=== PATIENT | female | born 1955 | race Caucasian/White ===

== ENCOUNTER 2017-06-27 14:34 | Outpatient (CLI) | payer MEDICARE ==
[2017-06-27 16:38] LABS: #Eosinphils 0.2 thou/uL (0.0-0.7); #Lymphocytes 1.8 thou/uL (1.20-3.40); #Monocytes 0.5 thou/uL (0.11-0.59); #Neutrophils 5.1 thou/uL (1.40-6.50); %Basophils 0.5 % (0.0-1.0); %Eosinophils 2.3 % (0.0-10.0); %Lymphocytes 23.3 % (21.0-51.0); Hemoglobin 12.2 g/dL (12.0-16.0); Mean Corpuscular HGB CONC 32.4 g/dL (32.0-36.0); Mean Corpuscular Hemoglobin 31.1 pg (27.0-31.0); Mean Corpuscular Volume 96.1 fl (81.0-99.0); Mean Platelet Volume 7.8 fL (7.4-10.4); Platelet Count 203 thou/uL (130-400); RBC Distribution Width 11.2 % (11.5-14.5); Red Blood Cell (RBC) Count 3.91 mill/uL (4.20-5.40); White Blood Cell (WBC) Count 7.6 thou/uL (4.8-10.8)
[2017-06-27 16:59] LABS: Anion Gap 13 mmol/L (10-20); BUN (Urea Nitrogen) 21 mg/dL (9.8-20.1); Calc. Creatinine Clearance 0 mL/min (70-130); Calcium 9.1 mg/dL (7.8-10.44); Carbon Dioxide 34 mmol/L (23-31); Chloride 94 mmol/L (98-107); Estimated GFR-MDRD 77; Glucose 71 mg/dL (80-115); Potassium 4.2 mmol/L (3.5-5.1); Sodium 137 mmol/L (136-145)
--- NOTE | 2017-06-28 14:32 | EKG ---
Test Reason : Blood Pressure : / mmHG Vent. Rate : 077 BPM Atrial Rate : 077 BPM P-R Int : 122 ms QRS Dur : 070 ms QT Int : 380 ms P-R-T Axes : 034 073 067 degrees QTc Int : 430 ms Normal sinus rhythm Normal ECG When compared with ECG of 11-NOV-2015 12:18, ST elevation now present in Inferior leads Nonspecific T wave abnormality now evident in Anterior leads Confirmed by DR. Sinan NUNO ([id number]) on 06/28/2017 2:32:08 PM Referred By: JOAN Confirmed By:DR. Sinan NUNO
== END 2017-06-27 14:35 | disposition home or self-care (01) ==
LOC: LABBT 14:34
PROVIDERS: ATTEND Orthopaedic Surgery Hand Surgery
DX: Z01.812 Encounter for preprocedural laboratory examination (principal); G57.01 Lesion of sciatic nerve, right lower limb
CPT/HCPCS: 80048; 85025; 86850; 86900; 86901; 93005; 93010

== ENCOUNTER 2017-06-28 05:54 | Day surgery (SDC) | payer MEDICARE ==
[2017-06-27 14:58] VITALS: BMI 38.4
[2017-06-28] MEDS ORDERED: Sodium Chloride 0.9% 10 ML ONE (06:38)
[2017-06-28] MEDS ORDERED: Bupivacaine PF 0.5% 30 ML VIAL ONE (06:38)
[2017-06-28] MEDS ORDERED: Bacitracin Zinc Ointment 30 gm TUBE ONE (06:38)
[2017-06-28] MEDS ORDERED: Betamet Acet/Betamet Na Ph 30 MG/5 ML VIAL ONE (06:38)
[2017-06-28] MEDS ORDERED: HYDROmorphone 0.5 MG/0.5 ML SYRINGE ONE (07:25)
[2017-06-28] MEDS ORDERED: Fentanyl 100 MCG/2 ML VIAL ONE (07:25)
[2017-06-28] MEDS ORDERED: Metoclopramide HCl 10 MG/2 ML VIAL ONE (07:26)
[2017-06-28] MEDS ORDERED: Ondansetron HCl/PF 4 MG/2 ML Vial ONE (07:26)
[2017-06-28] MEDS ORDERED: CEFAZOLIN/Water 2 GM/20 ML SYRINGE ONE (08:39)
--- NOTE | 2017-06-28 12:05 | OP ---
DATE OF PROCEDURE: 06/28/2017 PREOPERATIVE DIAGNOSES: Right proximal deep peroneal nerve and right distal leg superficial peroneal nerve compression. FINDINGS: 1. Very tight compression both sides of the fibular head and at the primary inner crural fascial ban ds x2 at the peroneal nerve, at the fibular head. 2. Very tight superficial fascia with a fascial hernia causing compression to the point where the ne rve was flattened over 50%. PROCEDURE: 1. Deep peroneal nerve neuroplasty at the fibula/knee level. 2. Superficial peroneal nerve neuroplasty at the distal third leg level. ESTIMATED BLOOD LOSS: Estimated blood loss less than 10 mL. TOURNIQUET TIME: 31 minutes. SURGEON: Tito Oshea M.D. ANESTHESIA: General LMA technique. Irma HILL and Dr. Chahal HISTORY: The patient had a documented clinical, physical examination and EMG for the pathology liste d above, not responding to conservative treatment. DESCRIPTION OF PROCEDURE: After successful general LMA technique, the limb was prepped and draped. Timeout was done appropriately and the surgical markings matched the knee and leg site which was on t he consent as well and the patient and were informed of the sites. The patient then had the tourniquet inflated after exsanguination of the limb to 325 mmHg pressure. It was well-padded proximal thigh beginning in an area where she had loss skin from previous necrotiz ing fasciitis proximal third of the thigh. Incision over the fibula was zigzagged as was the area identified the superficial radial and superfic ial peroneal nerve distal 1/3 of the leg. We began with the proximal incision carried through skin, subcutaneous tissue, and she had very little fascia, we identified the peroneal nerve deep to the bic eps femoris tendon, proximal fibula to release a very tight fascial band here and then followed its c ourse over the fibula where there was a first very tight and crural fascia band, almost 5 mm wide and here, the nerve was flattened by over 50%. We released this. We followed it into the muscle, disse cted and found the second crural branch as well as a small 2 mm band between each of which was strong enough to lift the leg off the bed. We released these under direct visualization. The nerve began to reconstitute as to flatten area begin to look more like the area proximal to the fibular by the ti me we finished the second half of the procedure. The nerve was now free. We also inspected the proximal aspect and saw no other compression of any of the branches. We then b celso incision, a zigzag incision in the distal third of the leg centered over the fascial hernia and dissected skin. Immediately we found this area had 3 major branches all constricted and flattened ov er 50%. Released this area and followed the terminal branches without damaging them and they were fr ee as well over approximately a 6 cm area distal and 5 cm proximal. Now, we placed 3 mL Celestone in each of the nerve areas, released the tourniquet, obtained hemostasis. With closed subcutaneous ski n with a running 3-0 Monocryl at the knee level and a 4-0 Monocryl at the leg level. We then used th e 3-0 Vicryl, 3-0 nylon for interrupted closure at the knee level and a 4-0 nylon for closure at the leg level. We injected each site with 10 mL 0.5% Marcaine and the patient had a bulky dressing appli ed, leaving the operating room without evidence of anesthetic or operative complication.
[2017-06-28] MEDS ORDERED: HYDROcodone/Acetaminophen 5/325 mg Tablet ONE (13:39)
== END 2017-06-28 14:10 | disposition home or self-care (01) ==
LOC: SDC 05:54
PROVIDERS: ATTEND Orthopaedic Surgery Hand Surgery
PROC: 01NH0ZZ Release Peroneal Nerve, Open Approach (ICD-10-PCS; principal; 2017-06-28)
DX: G57.81 Other specified mononeuropathies of right lower limb (principal); Z88.5 Allergy status to narcotic agent; Z98.890 Other specified postprocedural states
CPT/HCPCS: 94002; A4216; J0131; J0702; J1170; J2405; J2765; J3010; J3490; S0020

== ENCOUNTER 2018-07-13 18:49 | Inpatient (IN) | payer MEDICARE ==
[2018-07-13] MEDS ORDERED: Rocuronium Bromide 10 MG/ML (10ML VIAL) ONE (18:55)
[2018-07-13 19:16] LABS: Hemoglobin 11.5 g/dL (12.0-16.0); Mean Corpuscular HGB CONC 28.7 g/dL (32.0-36.0); Mean Corpuscular Hemoglobin 30.7 pg (27.0-31.0); Mean Platelet Volume 8.3 fL (7.4-10.4); Platelet Count 277 thou/uL (130-400); RBC Distribution Width 13.3 % (11.5-14.5); Red Blood Cell (RBC) Count 3.76 mill/uL (4.20-5.40); White Blood Cell (WBC) Count 12.9 thou/uL (4.8-10.8)
[2018-07-13 19:17] LABS: #Lymphocytes 0.9 thou/uL (1.20-3.40); #Monocytes 0.9 thou/uL (0.11-0.59); #Neutrophils 11.1 thou/uL (1.40-6.50); %Basophils 0.3 % (0.0-1.0); %Eosinophils 0.3 % (0.0-10.0); %Monocytes 6.8 % (0.0-10.0); %Neutrophils 85.6 % (42.0-75.0)
[2018-07-13 19:28] LABS: Actual Bicarbonate (HCO3a) 48.1 mEq/L (22-28); Analyzer IN Cardio ER; Base Excess (BEa) 18.1 mEq/L (-2.0 to +3.0); CO2 Tension 95.7 mmHg (35.0-45.0); Calcium, Ionized 1.07 mmol/L (1.12-1.30); Carboxyhemoglobin (COHb) 0.6 gm% (0.0-3.0); O2 Tension (PaO2) 494.5 mmHg (> 80.0); Potassium - ABG Lab 3.59 mmol/L (3.70-5.30); pH, Arterial 7.32 (7.35-7.45)
[2018-07-13 19:29] LABS: ALV-art Gradient 98.875 (0-20); Puncture Site R BRACHIAL
[2018-07-13 19:31] LABS: Anisocytosis SLIGHT = 6-15 cells (100X) (0-5/hpf); Hypochromia SLIGHT = 6-15 cells (100X) (0-5/hpf); MDiff Complete? YES; Macrocytosis SLIGHT = 6-15 cells (100X) (0-5/hpf); Platelet Morphology Comment Appears Adequate
--- NOTE | 2018-07-13 19:31 | RAD ---
RADIOGRAPH CHEST 1 VIEW: Supine DATE: 07/13/2018 Time: 7:09: PM HISTORY: 63-year-old female status post intubation. Unresponsive. FINDINGS: There is no airspace density or pulmonary edema. The lateral costophrenic angles are sharp. Supine po sitioning makes this study insensitive for the detection of pneumothorax. There is an endotracheal tube with distal tip in the right mainstem bronchus. Dr. Snider of the emergency Department is alread y aware of its position. There is an NG tube curled in the medial aspect of the left upper quadrant. IMPRESSION: 1. Endotracheal tube in right mainstem bronchus. 2. No pulmonary edema or consolidation.
[2018-07-13 19:34] LABS: Acetaminophen Less than 6.0 mcg/mL (10.0-30.0); Alcohol Less than 10 mg/dL (Less than 10); CK (CPK) 49 U/L (29-168); Salicylate Less than 8.0 mg/dL (15.0-30.0)
[2018-07-13 19:39] LABS: ALT (SGPT) 15 U/L (8-55); AST (SGOT) 19 U/L (5-34); Alkaline Phosphatase 65 U/L (40-150); BUN (Urea Nitrogen) 18 mg/dL (9.8-20.1); Bilirubin, Total 0.5 mg/dL (0.2-1.2); Calc. Creatinine Clearance 0 mL/min (70-130); Calcium 8.5 mg/dL (7.8-10.44); Estimated GFR-MDRD 70; Glucose 116 mg/dL (80-115); Lipase 4 U/L (8-78)
--- NOTE | 2018-07-13 19:52 | RAD ---
RADIOGRAPH CHEST 1 VIEW: DATE: 07/13/2018 TIME: 7:29 PM HISTORY: Status post adjustment of endotracheal tube COMPARISON: 07/13/2018 7:09 pm FINDINGS: Endotracheal tube has been retracted, and it is now 2 cm superior to the pat. Left lung is well ae rated. There is a subtle, faint patchy infiltrate-like density in the right lower lung zone on the current study, which was also present on the 7:09 PM study although not mentioned on that report. IMPRESSION: 1. Retraction of the endotracheal tube superior to the pat. 2. Subtle, faint small right basilar infiltrate.
[2018-07-13 19:54] LABS: Lactic Acid 1.4 mmol/L (0.5-2.2)
[2018-07-13 19:56] LABS: CKMB 2.2 ng/mL (0-6.6)
[2018-07-13 19:58] LABS: Anion Gap 16 mmol/L (10-20); Carbon Dioxide 37 mmol/L (23-31); Chloride 98 mmol/L (98-107); Potassium 4.1 mmol/L (3.5-5.1); Sodium 147 mmol/L (136-145)
--- NOTE | 2018-07-13 19:59 | CT ---
CT brain. HISTORY: Altered mental status. Noncontrast enhanced images of the brain demonstrates intubation of the patient. An old area of lacunar infarction seen in the right basal ganglion. No evidence of acute intracranial masses, hemorrhages or strokes seen. CT appearance of the brain has not significantly changed since previous exam from 06/30/2018. Previously noted right frontal scalp hematomas resolved. IMPRESSION: No evidence of acute intracranial pathology seen.
[2018-07-13] MEDS ORDERED: Piperacillin/Tazobactam 4.5 GM VIAL ONE (20:01)
--- NOTE | 2018-07-13 20:05 | CT ---
CT cervical spine. HISTORY: Fall. Axial images are obtained with coronal and sagittal reconstructions. Comparison made to previous CT from 06/30/2018. Nasogastric and endotracheal tubes are again seen. No evidence of acute cervical spine fractures seen. Facets and vertebral bodies are intact. Spinal ca nal is not compromised on CT. IMPRESSION: normal CT cervical spine.
[2018-07-13] MEDS ORDERED: Aspirin 300 MG Suppository ONE (20:20)
[2018-07-13] MEDS ORDERED: Vancomycin HCl 1.5 GM in Sodium Chloride 0.9% 250 ML 300 ML IVPB SCH (20:30)
[2018-07-13 20:34] LABS: Bilirubin Negative (Negative); Blood, Urine Large (Negative); Clarity CLOUDY (Clear); Glucose, Urine (Dipstick) Negative (Negative); Leukocyte Large (Negative); Nitrite Positive (Negative); Protein, Urine (Dipstick) 100 mg/dL (Neg-Trace); Specific Gravity, Urine 1.018 (1.002-1.036); pH, Urine 5.5 (5.0-9.0)
[2018-07-13 20:36] LABS: Bacteria/HPF 4+ HPF (None Seen)
[2018-07-13 20:37] LABS: Pathc Cast-AUWi Flag 17.93 (0-2.49); Yeast-AUWi Flag 659.4 (0-25.0)
[2018-07-13 20:38] LABS: Hyaline Casts/LPF 0-3 HYALINE CAST LPF (0-3 Hyaline)
[2018-07-13 20:42] LABS: Crystals/HPF 2+ AMORPH URATES HPF (Negative); WBC/HPF 21-50 HPF (0-3); Yeast-All Forms None Seen HPF (None Seen)
[2018-07-13 20:43] LABS: Amphetamine Not Detected (NotDetected); Barbiturates Screen Not Detected (NotDetected); Benzodiazepine Screen Detected (NotDetected); Cocaine Metabolite Screen Not Detected (NotDetected); Medtox Control Line Valid? VALID (VALID); Medtox Reader # READER 1; Methadone Not Detected (NotDetected); Methamphetamine Not Detected (NotDetected); Opiate Screen Detected (NotDetected); Oxycodone Screen Not Detected (NotDetected); Phencyclidine (PCP) Not Detected (NotDetected); THC/Cannabinoid Screen Not Detected (NotDetected); Tricyclic Screen Not Detected (NotDetected)
[2018-07-13] MEDS ORDERED: Acetaminophen 325 MG TAB PO PRN (21:39)
[2018-07-13] MEDS ORDERED: Acetaminophen 650 MG Suppository PR PRN (21:39)
[2018-07-13] MEDS ORDERED: Propofol 1,000 MG/100 ML VIAL IV ONE (21:59)
[2018-07-13] MEDS ORDERED: DISCONTINUE PREVIOUS NARCOTIC PAIN MEDICATIONS AND BENZODIAZEPINES FS SCH (23:01)
[2018-07-13] MEDS ORDERED: Propofol BOLUS 1,000 MG/100 ML VIAL IV PRN (23:01)
[2018-07-13] MEDS ORDERED: Fentanyl BOLUS 250 ML IVPB PRN (23:01)
[2018-07-13] MEDS ORDERED: Morphine 2 MG/ML SYRINGE SLOW IVP PRN (23:01)
[2018-07-13] MEDS: Propofol 1,000 MG/100 ML VIAL IV PRN (23:03)
[2018-07-14 01:53] LABS: Troponin I 0.054 ng/mL (< 0.028)
--- NOTE | 2018-07-14 03:25 | HP ---
PRIMARY CARE PHYSICIAN: Dr. Rj Nina. CODE STATUS: Full code. TIME OF EVALUATION: 8:20 p.m. CHIEF COMPLAINT: The patient was found unresponsive. HISTORY OF PRESENT ILLNESS: This is a 63-year-old female patient with past medical history of chronic low back pain, hypertension, dyslipidemia, previous UTIs, who came to the hospital after being found unresponsive. Reportedly, the patient had been laid out for the past 4 hours, sleeping in the recliner. The patient is reported to have a couple of falls in the past few days and then she had some change in mental status and having some congestion-like symptoms for the past 3 to 4 days. The daughter reported that she told her yesterday evening that she was doing well. Symptoms were severe, she got to the ER and she had severe mentation deterioration, unable to protect her airways and she got intubated. She was found to be in acute hypoxemic hypercarbic respiratory failure, found to have pneumonia, and was started on treatment for it. REVIEW OF SYSTEMS: Unable to obtain as the patient was not responsive. PAST MEDICAL HISTORY: As mentioned in the HPI. SURGICAL HISTORY: As per previous records, positive for hysterectomy, right leg surgery, history of necrotizing fascitis, necrotizing fasciitis repair, history of spinal stimulator, and L4-L5 hemilaminectomy. ALLERGIES: NO KNOWN DRUG ALLERGIES EXCEPT FOR OXYCODONE. UNABLE TO VERIFY WITH THE PATIENT. REPORTED MEDICATIONS: 1. Omeprazole. 2. Metoprolol. 3. Hydrocodone/acetaminophen. 4. Sumatriptan. 5. Escitalopram. 6. Methocarbamol. 7. Promethazine. 8. Alprazolam. 9. D3-50 cholecalciferol. 10. Gabapentin. 11. Aspirin. 12. Vitamin C. 13. Vitamin B6. 14. Atorvastatin. FAMILY HISTORY: Positive for colon cancer in the mother and sister had rectal polyps. Father of heart attack at the age of 61. SOCIAL HISTORY: Patient used to be a smoker. No alcohol. No drugs. Also, patient has known history of previous admission with opioid overdose. PHYSICAL EXAMINATION: VITAL SIGNS: On presentation, blood pressure 122/96 with heart rate of 107, respirations 10, oxygen saturation 97% on rebreather. The patient got intubated with correction of the vital signs. GENERAL APPEARANCE: The patient is intubated and sedated. HEENT: Normal conjunctivae. Moist oral mucosa. Anicteric. NECK: No JVD. RESPIRATORY: Bilateral air entry with bilateral rales. No wheezing. Symmetric expansion. CARDIOVASCULAR: Normal rate, regular rhythm. No murmurs. No gallop. No edema. ABDOMEN: Soft. Normal bowel sounds. MUSCULOSKELETAL: Baseline range of motion and strength. No tenderness. SKIN: Warm and intact. No pallor. No rash except for severe rash in all intertrigo and lower abdomen area and the groin area, but older. EXTREMITIES: Peripheral pulses are present. Capillary refill seems to be intact. NEURO: No evidence of any new focal weakness. PSYCH: The patient is unable to explore. The patient is intubated and sedated. DIAGNOSTIC DATA: EKG was reviewed. The patient has normal sinus rhythm with a rate of 91 with CA 120, QRS 74, QTc corrected 435. Labs were reviewed. A brain CT was done. The patient has no evidence of acute intracranial pathology. Cervical spine CT was done. The patient had normal CT of the cervical spine. Chest x-ray was done. The patient had retraction of the endotracheal tube superior to the pat. Subtle, faint, small right basilar infiltrate. LABORATORY DATA: Reviewed. The patient has white count of 12.9, hemoglobin 11.5, MCV 107, platelet count 277. Blood gas was done, pH 7.32 with pCO2 95, and pO2 494 that was done on SIMV, mechanical rate 14, inspired oxygen 100%, tidal volume 500, pressure support of 10, and PEEP 5. Chemistry: Sodium 147, potassium 4.1, chloride 98, carbon dioxide 37, anion gap 16, BUN 18, creatinine 0.82, GFR 70, glucose 116, lactic acid 1.4, calcium 8.5. LFTs were negative. First troponin 0.041, the second one 0.054. Lipase 4. Urine was done, white count was 21-50 with large amount of urine leukocyte esterase, positive nitrites. Urine drug screen was done and was positive for opiates and benzos. Plasma alcohol less than 10. CRITICAL CARE TIME: More than 35 minutes is spent on bedside assessment, family counseling, medication reconciliation, and stabilization of the patient. ASSESSMENT AND PLAN: The patient will be placed in the hospital with the following medical problems: 1. Acute hypercapnic respiratory failure with acute respiratory acidosis seen with pH 7.32, pCO2 95. Patient got intubated by the time of my examination. The patient was stable and will be placed in ICU. We will consult Pulmonary and follow recommendations. 2. Right lower lobe pneumonia seen on chest x-ray, could be reason why the patient went to respiratory failure. The patient is getting antibiotics. We will continue for now. We will follow cultures. We will adjust treatment as per sensitivity. 3. Sepsis. The patient presented with tachycardia and white count of 12.9 with acute encephalopathy. The patient is on broad-spectrum antibiotics. We will continue for now. 4. Chronic macrocytic anemia. This is minimal. This can be followed as an outpatient. 5. Hypernatremia. Sodium 147, this is minimal, we will hydrate, and monitor sodium level. 6. Hyperglycemia. The patient has no reported history of diabetes. This is mild, could be secondary to acute physical distress. No need for any acute intervention at this point. 7. Acute encephalopathy, likely metabolic due to underlying conditions including sepsis. We will treat the underlying condition. 8. Candidiasis of the lower abdomen and groin area, 2-3 months or older. 9. Mildly elevated troponin, probably non-ST elevation myocardial infarction type 2. Troponin initial was 0.041, the second one 0.034. We will treat underlying condition, likely due to acute respiratory failure and sepsis. 10. Urinary tract infection. The patient has white count 21-50 in the urine, the patient has underlying antibiotics that will cover for any urinary infection. Cultures need to be followed to adjust treatment and sensitivity. 11. Deep venous thrombosis prophylaxis. Job ID: [id number]
[2018-07-14] MEDS: Piperacillin/Tazobactam 4.5 GM in Sodium Chloride 0.9% 100 ML IVPB SCH ×3 (03:55→20:04)
[2018-07-14] MEDS: Propofol 1,000 MG/100 ML VIAL IV PRN ×3 (03:55→16:23)
[2018-07-14 04:37] LABS: #Eosinphils 0.1 thou/uL (0.0-0.7); #Lymphocytes 1.5 thou/uL (1.20-3.40); #Monocytes 0.8 thou/uL (0.11-0.59); #Neutrophils 6.3 thou/uL (1.40-6.50); %Basophils 0.2 % (0.0-1.0); %Eosinophils 0.9 % (0.0-10.0); %Lymphocytes 17.3 % (21.0-51.0); %Monocytes 8.9 % (0.0-10.0); %Neutrophils 72.7 % (42.0-75.0); Hemoglobin 10.6 g/dL (12.0-16.0); Mean Corpuscular HGB CONC 30.2 g/dL (32.0-36.0); Mean Corpuscular Hemoglobin 31.3 pg (27.0-31.0); Mean Platelet Volume 8.6 fL (7.4-10.4); Platelet Count 224 thou/uL (130-400); RBC Distribution Width 13.2 % (11.5-14.5); Red Blood Cell (RBC) Count 3.39 mill/uL (4.20-5.40); White Blood Cell (WBC) Count 8.6 thou/uL (4.8-10.8)
[2018-07-14 05:04] LABS: BUN (Urea Nitrogen) 18 mg/dL (9.8-20.1); Calc. Creatinine Clearance 132 mL/min (70-130); Calcium 8.3 mg/dL (7.8-10.44); Estimated GFR-MDRD 83; Glucose 67 mg/dL (80-115)
[2018-07-14 05:08] LABS: Troponin I 0.055 ng/mL (< 0.028)
[2018-07-14 05:14] LABS: Anion Gap 17 mmol/L (10-20); Carbon Dioxide 36 mmol/L (23-31); Chloride 99 mmol/L (98-107); Potassium 3.6 mmol/L (3.5-5.1); Sodium 148 mmol/L (136-145)
[2018-07-14] MEDS ORDERED: Artificial Tears 18 DROP/0.9 ML EA EYE PRN (07:38)
[2018-07-14] MEDS ORDERED: Bisacodyl 10 MG SUPP PR PRN ×2 (07:38→08:36)
[2018-07-14] MEDS ORDERED: hydrALAZINE 20 MG/ML VIAL SLOW IVP PRN (07:38)
[2018-07-14] MEDS: Lorazepam 2 MG/ML VIAL SLOW IVP PRN ×3 (07:58→16:23)
[2018-07-14] MEDS: Enoxaparin Sodium 40 MG/0.4 ML SYRINGE SC SCH (08:13)
[2018-07-14 08:14] LABS: Base Excess (BEa) 14.2 mEq/L (-2.0 to +3.0); CO2 Tension 50.3 mmHg (35.0-45.0); Calcium, Ionized 1.07 mmol/L (1.12-1.30); Hemoglobin (Hb) 10.2 g/dL (12.0-16.0); O2 Tension (PaO2) 77.4 mmHg (> 80.0); Potassium - ABG Lab 3.44 mmol/L (3.70-5.30); pH, Arterial 7.51 (7.35-7.45)
[2018-07-14] MEDS ORDERED: Acetaminophen 500 MG TAB PO PRN (08:36)
[2018-07-14] MEDS ORDERED: Diabetic Tussin 200 MG/10 ML UDCUP PO PRN (08:36)
[2018-07-14] MEDS ORDERED: Loperamide HCl 2 MG CAP PO PRN (08:36)
[2018-07-14] MEDS ORDERED: Loratadine 10 MG TAB PO PRN (08:36)
[2018-07-14] MEDS ORDERED: Sodium Chloride 0.65% Nasal 44 ML BOT EA NARE PRN (08:36)
[2018-07-14 09:02] LABS: Puncture Site RBA
[2018-07-14 09:03] LABS: ALV-art Gradient 144.925 (0-20)
[2018-07-14] MEDS: Clotrimazole 1 % Cream 30 GM TUBE TOP SCH ×2 (09:17→20:04)
[2018-07-14] MEDS: Folic Acid 1 MG TAB PO SCH (09:18)
[2018-07-14] MEDS: Saccharomyces boulardii 250 MG CAP PO SCH (09:18)
[2018-07-14] MEDS: Vancomycin HCl 1.5 GM in Sodium Chloride 0.9% 250 ML 300 ML IVPB SCH ×2 (09:21→20:04)
--- NOTE | 2018-07-14 09:27 | RAD ---
PORTABLE CHEST: HISTORY: Respiratory distress. FINDINGS: Heart size is enlarged. Aorta is tortuous. Endotracheal tube is in satisfactory position. NG tube below the hemidiaphragm. Atelectatic changes are seen in the left lung base. Slightly more prominen t parenchymal change in the right base but still felt to be on the basis of atelectasis. IMPRESSION: Essentially stable exam. POS: [facility]
[2018-07-14] MEDS: Cyanocobalamin (Vitamin B-12) 1,000 MCG TAB PO SCH (09:37)
--- NOTE | 2018-07-14 09:41 | PDOC.PULCN ---
Pulmonology Consult: HPI - Date of Consult Date: 07/14/18 Time: 09:00 - Consult Details Reason for Consult: Critical Care - History of Present Illness HPI: GREGORY YBARRA is a 63 year-old F who came to hospital after being found unresponsive. Unable to obtain hx from patient due to intubation. Hx obtained from previous HPI and ER documentation. Pt had been having a couple falls the last few days and have some changes in her mental status. It had been reported that pt was having some congestion like symptoms the last 3-4 days. Pulmonology Consult: ROS - Review of Systems ROS unobtainable: due to endotracheal tube Pulmonology Consult: PMH Source: family, other (Previous Hospitlization Documentation) Past Medical History: Hx of Necrotizing Fascitis, Chronic Back pain, HLD, HTN, Asthma using 2-4L [place] home O2, previous UTI's PSHx: L4-5 Laminotomy, Hysterectomy, R. Leg surger, Hx of necrotizing fascitis. - Family History Pertinent family history: Positive for Colon Cancer in Mother and sister had rectal polyps. Father CAD at age 61 - Social History Smoking Status: Former smoker Alcohol Use: none Drug Use History: none Living Situation: independent Pulmonology Consult: Meds - Medications MAR Reviewed: Yes Medications: Current Medications Acetaminophen (Tylenol) 650 mg CO Q4H PRN PRN Reason: Headache/Fever/Mild Pain (1-3) Acetaminophen (Tylenol) 650 mg PO Q6H PRN PRN Reason: Mild Pain (1-3) Artificial Tears (Tears Naturale) 2 drop EA EYE PRN PRN PRN Reason: Dry Eyes Bisacodyl (Dulcolax) 10 mg CO DAILYPRN PRN PRN Reason: Constipation Bisacodyl (Dulcolax) 10 mg CO DAILYPRN PRN PRN Reason: Constipation Clotrimazole (Lotrimin 1% Cream) 0 gm TOP BID [facility] Stop: 07/21/18 09:01 Last Admin: 07/14/18 09:17 Dose: 1 applic Cyanocobalamin (Vitamin B-12) 1,000 mcg PO DAILY [facility] Last Admin: 07/14/18 09:37 Dose: 1,000 mcg Enoxaparin Sodium (Lovenox) 40 mg SC 09 [facility] Last Admin: 07/14/18 08:13 Dose: 40 mg Folic Acid (Folvite) 1 mg PO DAILY [facility] Last Admin: 07/14/18 09:18 Dose: 1 mg Furosemide (Lasix) 20 mg SLOW IVP ONE [facility] Guaifenesin (Robitussin Sf) 200 mg PO Q4H PRN PRN Reason: Cough Hydralazine HCl (Apresoline) 10 mg SLOW IVP Q4H PRN PRN Reason: SBP > 180 and HR < 70 Fentanyl Citrate 2,000 mcg/ (Sodium Chloride) 100 mls @ 0 mls/hr IV INF [facility]; Protocol Stop: 08/12/18 19:08 Piperacillin Sod/Tazobactam (Sod 4.5 gm/ Sodium Chloride) 100 mls @ 200 mls/hr IVPB 0400,1200,2000 [facility] Last Admin: 07/14/18 03:55 Dose: 100 mls Vancomycin HCl 1.5 gm/ Sodium (Chloride) 300 mls @ 200 mls/hr IVPB Q12HR [facility] Last Admin: 07/14/18 09:21 Dose: 300 mls Fentanyl Citrate (Fentanyl Bolus) 250 mls @ 0 mls/hr IVPB PRN PRN PRN Reason: Breakthrough pain/agitation Stop: 08/12/18 23:01 Loperamide HCl (Imodium) 2 mg PO PRN PRN PRN Reason: Diarrhea/Loose Stools Loratadine (Claritin) 10 mg PO DAILYPRN PRN PRN Reason: Sinus Symptoms Lorazepam (Ativan) 2 mg SLOW IVP Q1H PRN PRN Reason: Breakthrough agitation Stop: 08/12/18 23:01 Last Admin: 07/14/18 07:58 Dose: 2 mg Miscellaneous Medication (Pharmacy To Dose) 1 each IVPB ONE [facility] Stop: 08/12/18 22:16 Morphine Sulfate (Morphine) 2 mg SLOW IVP Q1H PRN PRN Reason: BREAKTHROUGH PAIN/Agitation Stop: 08/12/18 23:01 Discontinue Previous Narcotic Pain Medications And Benzodiazepines 1 each FS .ONE [facility] Stop: 08/12/18 23:01 Nystatin (Mycostatin Powder) 1 gm TOP BID PRN PRN Reason: Topical Irritations Ondansetron HCl (Zofran Odt) 4 mg PO Q6H PRN PRN Reason: Nausea/Vomiting Ondansetron HCl (Zofran) 4 mg IVP Q6H PRN PRN Reason: Nausea/Vomiting Propofol (Diprivan) 1,000 mg IV INF PRN; Protocol PRN Reason: TO ACHIEVE GOAL RASS Stop: 08/12/18 23:01 Last Admin: 07/14/18 03:55 Dose: 1,000 mg Propofol (Diprivan Bolus) 20 mg IV Q5MIN PRN PRN Reason: BREAKTHROUGH AGITATION Stop: 08/12/18 23:01 Saccharomyces Boulardii (Florastor) 250 mg PO DAILY [facility] Last Admin: 07/14/18 09:18 Dose: 250 mg Sodium Chloride ([place] Nasal [place] 0.65%) 0 ml EA NARE QIDPRN PRN PRN Reason: Nasal Congestion Sodium Chloride (Flush - Normal Saline) 10 ml IVF Q12HR [facility] Last Admin: 07/14/18 09:18 Dose: 10 ml Sodium Chloride (Flush - Normal Saline) 10 ml IVF PRN PRN PRN Reason: Saline Flush - Allergies Allergies/Adverse Reactions: Allergies Allergy/AdvReac Type Severity Reaction Status Date / Time oxycodone [From OxyContin] Allergy severe n/v Verified 06/27/17 15:00 Pulmonology Consult: PE - Physical Exam HEENT: PERRLA, moist MMs Neck: no nodes, no JVD, supple Cardiovascular: RRR, no significant murmur, no rub Respiratory: decreased breath sounds, prolonged expiratory phase Focused Respiratory Location: decreased breath sounds: Right, rhonchi: Right, Lower Gastrointestinal: soft, non-tender, positive bowel sounds Deviation from normal: Pt has extensive fungal rash under pannus of abdomen. Extends throughout Musculoskeletal: pulses present Deviation from normal: +2 pitting edema in LE up to knees. Has some pitting edema in UE Deviation from normal: Unable to fully assess due to pt being intubated and sedated Deviation from normal: Unable to fully assess due to pt being intubated and sedated Skin: no rash, cap refill <2 seconds Pulmonology Consult: Results - Labs Result Diagrams: 07/15/18 09:35 07/15/18 09:35 - ABG Interpretation Attestation: I reviewed and interpreted this ABG. ABG Results: ABG pH 7.51 (7.35-7.45) H 07/14/18 08:00 ABG pCO2 50.3 mmHg (35.0-45.0) H 07/14/18 08:00 ABG O2 Sat Calc/Alivia 96.1 % (94.0-98.0) 07/14/18 08:00 ABG Base Excess 14.2 mEq/L (-2.0 to +3.0) H 07/14/18 08:00 Interpretation: respiratory alkalosis - EKG Data EKG Interpreted by Myself EKG shows normal: sinus rhythm Rate: normal - Radiology Interpretation Chest x-ray Status: image reviewed by me, report reviewed by me (07/14: Heart size enlarged. ET in proper position. Stable exam from previous 07/13: Subtle, faint small right basilar infiltrate) CT scan - head Status: image reviewed by me, report reviewed by me (Normal CT cervical SPine, No evidence acute intracranial pathology seen.) Pulmonology Consult: A/P - Problem (1) Acute respiratory failure with hypercapnia Current Visit: Yes Code(s): J96.02 - ACUTE RESPIRATORY FAILURE WITH HYPERCAPNIA Status: Acute (2) Severe sepsis Current Visit: Yes Code(s): A41.9 - SEPSIS, UNSPECIFIED ORGANISM; R65.20 - SEVERE SEPSIS WITHOUT SEPTIC SHOCK Status: Acute (3) UTI (urinary tract infection) Current Visit: Yes Status: Acute Qualifiers: Urinary tract infection type: acute cystitis Hematuria presence: without hematuria Qualified Code(s): N30.00 - Acute cystitis without hematuria (4) Acute metabolic encephalopathy Current Visit: Yes Code(s): G93.41 - METABOLIC ENCEPHALOPATHY Status: Acute (5) Dyslipidemia Current Visit: Yes Code(s): E78.5 - HYPERLIPIDEMIA, UNSPECIFIED Status: Chronic (6) GERD (gastroesophageal reflux disease) Current Visit: Yes Code(s): K21.9 - GASTRO-ESOPHAGEAL REFLUX DISEASE WITHOUT ESOPHAGITIS Status: Chronic (7) Hypertension Current Visit: Yes Code(s): I10 - ESSENTIAL (PRIMARY) HYPERTENSION Status: Chronic Qualifiers: Hypertension type: essential hypertension Qualified Code(s): I10 - Essential (primary) hypertension (8) Morbid obesity with BMI of 40.0-44.9, adult Current Visit: Yes Code(s): E66.01 - MORBID (SEVERE) OBESITY DUE TO EXCESS CALORIES; Z68.41 - BODY MASS INDEX (BMI) 40.0-44.9, ADULT Status: Chronic (9) Type [address] elevation Current Visit: Yes Code(s): I21.A1 - MYOCARDIAL INFARCTION TYPE 2 Status: Acute (10) COPD exacerbation Current Visit: Yes Code(s): J44.1 - CHRONIC OBSTRUCTIVE PULMONARY DISEASE W ( ACUTE) EXACERBATION Status: Acute - Time Time: 50% of the time was spent in coordination of care (as documented) at patient's floor/unit and/or counseling patient. Time with Patient: greater than 70 minutes - Plan Plan: Pt comes in with Acute Hypoxic Hypercapnic Resp Failure 2/2 COPD exacerbation from RLL PNA. Pt also had severe sepsis with UTI and Encephalopathy. Sepsis has since resolved. Pt on broad spectrum abx. Sputum, Blood and Urine cx pending. Will keep on broad spectrum abx until cx come back. Will keep pt intubated today. Will start steroids for COPD exacerbation. Pt has some edema likely from being found unresponsive and being sedentary. Will give dose of IV lasix. Pt has extensive fungal rash. Will tx with nystatin fungal cream and powder at this time. Will keep as dry as possible. Pt has positive U/A. On Broad spectrum abx as above. Again will await cultures. Pt has indeterminate trops and type 2 NSTEMI. Will continue to follow. Likely due to Severe sepsis. Addendum - Attending - Attending Attestation Date/Time: 07/15/18 [id number] I personally evaluated the patient and discussed the management with Dr. Perez. I agree with the History, Examination, Assessment and Plan documented above with any addition or exceptions noted below. 70 minutes have been devoted to this patient in various activities. I personally reviewed all imaging studies and laboratory data noted within this document. For fifty percent of this time, I was interacting with the patient at the bedside or coordinating care with the care team. For the remainder of the time I was immediately available to the patient in the hospital unit.
[2018-07-14] MEDS ORDERED: Furosemide 20 MG/2 ML VIAL SLOW IVP SCH (09:45)
[2018-07-14] MEDS ORDERED: Pantoprazole 40 MG VIAL IVP SCH (10:00)
[2018-07-14] MEDS: fentaNYL Citrate/PF 2,000 MCG in Sodium Chloride 0.9% 60 ML IV SCH (10:01)
[2018-07-14] MEDS: predniSONE 20 MG TAB PO SCH (10:05)
[2018-07-14] MEDS: Sodium Chloride 0.9% (PF) 10 ML VIAL FS PRN (10:15)
--- NOTE | 2018-07-14 13:09 | PDOC.PN ---
- Subjective Encounter Start Date: 07/14/18 Encounter Start Time: 11:00 -: old records requested/rev pt is intubated and sedated, on vent Patient seen and examined. No overnight events - Objective Resuscitation Status - Order Detail: 07/13/18 21:39 Resuscitation Status Routine Resuscitation Status: FULL: Full Resuscitation MAR Reviewed: Yes Vital Signs & Weight: Vital Signs (12 hours) Temp Pulse Resp BP Pulse Ox 07/14/18 13:05 74 97/66 07/14/18 12:00 11 L 07/14/18 11:57 98.8 F 07/14/18 09:53 98.9 F 11 L 07/14/18 09:25 90 111/76 07/14/18 07:48 99 141/87 H 07/14/18 07:07 16 97 07/14/18 07:00 100.2 F H 07/14/18 06:00 16 07/14/18 04:00 99.1 F 16 07/14/18 02:38 87 07/14/18 02:00 16 Weight Weight 227 lb 15.327 oz Most Recent Monitor Data Heart Rate from ECG 71 NIBP 97/67 NIBP BP-Mean 77 Respiration from ECG 12 SpO2 97 I&O: 07/13/18 07/14/18 07/15/18 06:59 06:59 06:59 Intake Total 708 505 Output Total 344 1080 Balance 364 -575 Result Diagrams: 07/14/18 04:09 07/14/18 04:09 Radiology Reviewed by me: Yes (chest xray reviewed) EKG Reviewed by me: Yes (nsr) Phys Exam - Physical Examination Constitutional: NAD on vent HEENT: PERRLA, sclera anicteric NG tube+ ET in place Neck: no JVD, supple Respiratory: no wheezing, no rales, no rhonchi anteriorly Cardiovascular: RRR, no significant murmur, no rub Gastrointestinal: soft, no distention, positive bowel sounds obesity+ Musculoskeletal: no edema, pulses present Lymphatic: no nodes Skin: no rash, normal turgor Dx/Plan (1) Acute metabolic encephalopathy Code(s): G93.41 - METABOLIC ENCEPHALOPATHY Status: Acute (2) Acute respiratory failure with hypercapnia Code(s): J96.02 - ACUTE RESPIRATORY FAILURE WITH HYPERCAPNIA Status: Acute (3) COPD exacerbation Code(s): J44.1 - CHRONIC OBSTRUCTIVE PULMONARY DISEASE W (ACUTE) EXACERBATION Status: Acute (4) Severe sepsis Code(s): A41.9 - SEPSIS, UNSPECIFIED ORGANISM; R65.20 - SEVERE SEPSIS WITHOUT SEPTIC SHOCK Status: Acute (5) Type [address] elevation Code(s): I21.A1 - MYOCARDIAL INFARCTION TYPE 2 Status: Acute (6) UTI (urinary tract infection) Status: Acute Qualifiers: Urinary tract infection type: acute cystitis Hematuria presence: without hematuria Qualified Code(s): N30.00 - Acute cystitis without hematuria (7) Anxiety and depression Code(s): F41.9 - ANXIETY DISORDER, UNSPECIFIED; F32.9 - MAJOR DEPRESSIVE DISORDER, SINGLE EPISODE, UNSPECIFIED Status: Chronic (8) Dyslipidemia Code(s): E78.5 - HYPERLIPIDEMIA, UNSPECIFIED Status: Chronic (9) GERD (gastroesophageal reflux disease) Code(s): K21.9 - GASTRO-ESOPHAGEAL REFLUX DISEASE WITHOUT ESOPHAGITIS Status: Chronic (10) Hypertension Code(s): I10 - ESSENTIAL (PRIMARY) HYPERTENSION Status: Chronic Qualifiers: Hypertension type: essential hypertension Qualified Code(s): I10 - Essential (primary) hypertension (11) Macrocytic anemia Code(s): D53.9 - NUTRITIONAL ANEMIA, UNSPECIFIED Status: Chronic (12) Morbid obesity with BMI of 40.0-44.9, adult Code(s): E66.01 - MORBID (SEVERE) OBESITY DUE TO EXCESS CALORIES; Z68.41 - BODY MASS INDEX (BMI) 40.0-44.9, ADULT Status: Chronic - Plan cont current plan of care, plan discussed w/ family, continue antibiotics, respiratory therapy * medication reviewed as below * symptomatic treatment * vent as per pulmonary * agree with steroid * continue empiric antibiotics. * follow culture result Review of Systems - Review of Systems Other: unable to review due to intubated status - Medications/Allergies Allergies/Adverse Reactions: Allergies Allergy/AdvReac Type Severity Reaction Status Date / Time oxycodone [From OxyContin] Allergy severe n/v Verified 06/27/17 15:00 Medications: Current Medications Acetaminophen (Tylenol) 650 mg FL Q4H PRN PRN Reason: Headache/Fever/Mild Pain (1-3) Acetaminophen (Tylenol) 650 mg PO Q6H PRN PRN Reason: Mild Pain (1-3) Artificial Tears (Tears Naturale) 2 drop EA EYE PRN PRN PRN Reason: Dry Eyes Bisacodyl (Dulcolax) 10 mg FL DAILYPRN PRN PRN Reason: Constipation Bisacodyl (Dulcolax) 10 mg [place] DAILYPRN PRN PRN Reason: Constipation Clotrimazole (Lotrimin 1% Cream) 0 gm TOP BID [facility] Stop: 07/21/18 09:01 Last Admin: 07/14/18 09:17 Dose: 1 applic Cyanocobalamin (Vitamin B-12) 1,000 mcg PO DAILY [facility] Last Admin: 07/14/18 09:37 Dose: 1,000 mcg Enoxaparin Sodium (Lovenox) 40 mg SC 09 [facility] Last Admin: 07/14/18 08:13 Dose: 40 mg Folic Acid (Folvite) 1 mg PO DAILY [facility] Last Admin: 07/14/18 09:18 Dose: 1 mg Guaifenesin (Robitussin Sf) 200 mg PO Q4H PRN PRN Reason: Cough Hydralazine HCl (Apresoline) 10 mg SLOW IVP Q4H PRN PRN Reason: SBP > 180 and HR < 70 Fentanyl Citrate 2,000 mcg/ (Sodium Chloride) 100 mls @ 0 mls/hr IV INF [facility]; Protocol Stop: 08/12/18 19:08 Last Admin: 07/14/18 10:01 Dose: 100 mls Piperacillin Sod/Tazobactam (Sod 4.5 gm/ Sodium Chloride) 100 mls @ 200 mls/hr IVPB 0400,1200,2000 [facility] Last Admin: 07/14/18 11:02 Dose: 100 mls Vancomycin HCl 1.5 gm/ Sodium (Chloride) 300 mls @ 200 mls/hr IVPB Q12HR [facility] Last Admin: 07/14/18 09:21 Dose: 300 mls Fentanyl Citrate (Fentanyl Bolus) 250 mls @ 0 mls/hr IVPB PRN PRN PRN Reason: Breakthrough pain/agitation Stop: 08/12/18 23:01 Loperamide HCl (Imodium) 2 mg PO PRN PRN PRN Reason: Diarrhea/Loose Stools Loratadine (Claritin) 10 mg PO DAILYPRN PRN PRN Reason: Sinus Symptoms Lorazepam (Ativan) 2 mg SLOW IVP Q1H PRN PRN Reason: Breakthrough agitation Stop: 08/12/18 23:01 Last Admin: 07/14/18 07:58 Dose: 2 mg Miscellaneous Medication (Pharmacy To Dose) 1 each IVPB ONE [facility] Stop: 08/12/18 22:16 Morphine Sulfate (Morphine) 2 mg SLOW IVP Q1H PRN PRN Reason: BREAKTHROUGH PAIN/Agitation Stop: 08/12/18 23:01 Discontinue Previous Narcotic Pain Medications And Benzodiazepines 1 each FS .ONE [facility] Stop: 08/12/18 23:01 Nystatin (Mycostatin Powder) 1 gm TOP BIDPRN PRN PRN Reason: Topical Irritations Ondansetron HCl (Zofran Odt) 4 mg PO Q6H PRN PRN Reason: Nausea/Vomiting Ondansetron HCl (Zofran) 4 mg IVP Q6H PRN PRN Reason: Nausea/Vomiting Pantoprazole Sodium (Protonix) 40 mg IVP DAILY [facility] Prednisone (Prednisone) 40 mg PO QAM-[facility] Last Admin: 07/14/18 10:05 Dose: 40 mg Propofol (Diprivan) 1,000 mg IV INF PRN; Protocol PRN Reason: TO ACHIEVE GOAL RASS Stop: 08/12/18 23:01 Last Admin: 07/14/18 09:49 Dose: 1,000 mg Propofol (Diprivan Bolus) 20 mg IV Q5MIN PRN PRN Reason: BREAKTHROUGH AGITATION Stop: 08/12/18 23:01 Saccharomyces Boulardii (Florastor) 250 mg PO DAILY [facility] Last Admin: 07/14/18 09:18 Dose: 250 mg Sodium Chloride ([place] Nasal [place] 0.65%) 0 ml EA NARE QIDPRN PRN PRN Reason: Nasal Congestion Sodium Chloride (Flush - Normal Saline) 10 ml IVF Q12HR [facility] Last Admin: 07/14/18 09:18 Dose: 10 ml Sodium Chloride (Flush - Normal Saline) 10 ml IVF PRN PRN PRN Reason: Saline Flush Sodium Chloride (Normal Saline Pf) 10 ml FS PRN PRN PRN Reason: RECONSTITUTION Last Admin: 07/14/18 10:15 Dose: 10 ml
[2018-07-14] MEDS: Dextrose 5% in Water 1,000 ML IV SCH (16:24)
[2018-07-14] MEDS: Nystatin Powder 15 GM BOT TOP PRN (20:05)
[2018-07-15] MEDS: Lorazepam 2 MG/ML VIAL SLOW IVP PRN (00:06)
[2018-07-15] MEDS: Propofol 1,000 MG/100 ML VIAL IV PRN ×3 (01:14→14:57)
[2018-07-15] MEDS: fentaNYL Citrate/PF 2,000 MCG in Sodium Chloride 0.9% 60 ML IV SCH ×2 (04:17→23:00)
[2018-07-15] MEDS: Piperacillin/Tazobactam 4.5 GM in Sodium Chloride 0.9% 100 ML IVPB SCH ×3 (04:23→20:22)
[2018-07-15] MEDS: predniSONE 20 MG TAB PO SCH (09:36)
[2018-07-15] MEDS: Folic Acid 1 MG TAB PO SCH (09:37)
[2018-07-15] MEDS: Enoxaparin Sodium 40 MG/0.4 ML SYRINGE SC SCH (09:37)
[2018-07-15] MEDS: Saccharomyces boulardii 250 MG CAP PO SCH (09:37)
[2018-07-15] MEDS: Pantoprazole 40 MG VIAL IVP SCH (09:37)
[2018-07-15] MEDS: Cyanocobalamin (Vitamin B-12) 1,000 MCG TAB PO SCH (09:37)
[2018-07-15] MEDS: Clotrimazole 1 % Cream 30 GM TUBE TOP SCH ×2 (09:38→20:22)
[2018-07-15 09:47] LABS: #Eosinphils 0.1 thou/uL (0.0-0.7); #Lymphocytes 1.5 thou/uL (1.20-3.40); #Monocytes 1.1 thou/uL (0.11-0.59); #Neutrophils 5.6 thou/uL (1.40-6.50); %Basophils 0.2 % (0.0-1.0); %Eosinophils 1.4 % (0.0-10.0); %Lymphocytes 17.7 % (21.0-51.0); %Monocytes 13.1 % (0.0-10.0); %Neutrophils 67.6 % (42.0-75.0); Hemoglobin 10.8 g/dL (12.0-16.0); Mean Corpuscular Hemoglobin 31.3 pg (27.0-31.0); Mean Platelet Volume 8.4 fL (7.4-10.4); Platelet Count 230 thou/uL (130-400); RBC Distribution Width 13.1 % (11.5-14.5); Red Blood Cell (RBC) Count 3.44 mill/uL (4.20-5.40); White Blood Cell (WBC) Count 8.2 thou/uL (4.8-10.8)
[2018-07-15 10:02] LABS: Vancomycin, Trough 23.2 ug/mL
[2018-07-15 10:03] LABS: BUN (Urea Nitrogen) 17 mg/dL (9.8-20.1); Calc. Creatinine Clearance 142 mL/min (70-130); Calcium 8.1 mg/dL (7.8-10.44); Estimated GFR-MDRD 87; Glucose 88 mg/dL (80-115)
--- NOTE | 2018-07-15 10:07 | PRG ---
DATE OF SERVICE: 07/15/2018 SERVICE: Pulmonary Medicine. INTERVAL HISTORY: The patient continues to have high peak airway pressures. That being said, her plateaus are quite normal. She is requiring some sedation to stay comfortable and cannot provide any additional elements of the history. She had a fever yesterday. Otherwise, there were no significant events. PHYSICAL EXAMINATION: VITAL SIGNS: Afebrile, pulse 78, blood pressure 110/72, respirations 20, and saturation 97% on 27% FiO2 and a PEEP of 5. GENERAL: The patient is intubated and sedated. No apparent distress. HEENT: Normocephalic and atraumatic. Sclerae white. Conjunctivae pink. Oral mucosa is moist without lesions. LUNGS: Decent air entry with a very prolonged expiratory phase and wheezing present. Dependent crackles are minimal. HEART: Normal rate and regular. ABDOMEN: Soft, nontender, and nondistended. Bowel sounds are positive. MUSCULOSKELETAL: No cyanosis or clubbing. There is 1+ edema in the ankles. GENITOURINARY: Ness catheter in place. NEUROLOGIC: Grossly nonfocal. LABORATORY DATA: WBC 8.6 and downtrending, hemoglobin 10.6, and platelets 224, 000. Sodium 148. Drug screen is unremarkable. Coag-negative staph is growing in 1/2 blood cultures. Respiratory culture is negative to date. Urine culture is also negative to date. Respiratory culture had very few white blood cells present. ASSESSMENT: 1. Acute on chronic hypoxic and hypercapnic respiratory failure. 2. Severe sepsis. 3. Urinary tract infection, suspected. 4. Metabolic encephalopathy. 5. Community-acquired pneumonia. 6. Chronic obstructive pulmonary disease with acute exacerbation. DISCUSSION AND PLAN: The patient is doing okay from respiratory standpoint, though she continues to have very severe obstructive airflow limitation. This prevents us from safely extubating her. We will continue our steroids, nebulized medications, and antibiotics. I will empirically cover her with an antifungal medication as she has extensive intertriginous candidiasis. Supportive measures will be continued for the next 24 hours. We will introduce some low-dose tube feeds. I have weaned oxygen away. I will minimize sedation through time. Critical care time: 30 minutes. Job ID: [id number] MTDD
[2018-07-15 10:13] LABS: Anion Gap 18 mmol/L (10-20); Carbon Dioxide 34 mmol/L (23-31); Chloride 97 mmol/L (98-107); Potassium 3.4 mmol/L (3.5-5.1); Sodium 146 mmol/L (136-145)
--- NOTE | 2018-07-15 10:43 | PDOC.PN ---
- Subjective Encounter Start Date: 07/15/18 Encounter Start Time: 10:15 pt is on ventilator, Patient seen and examined. No overnight events - Objective Resuscitation Status - Order Detail: 07/13/18 21:39 Resuscitation Status Routine Resuscitation Status: FULL: Full Resuscitation MAR Reviewed: Yes Vital Signs & Weight: Vital Signs (12 hours) Temp Pulse Resp BP Pulse Ox 07/15/18 10:00 11 L 07/15/18 08:00 11 L 97 07/15/18 07:47 98 112/69 07/15/18 07:00 99.0 F 07/15/18 06:00 11 L 07/15/18 04:00 98.9 F 11 L 07/15/18 02:28 61 07/15/18 02:00 11 L 07/15/18 00:00 98.1 F 12 Weight Admit Weight 227 lb 15.327 oz Weight 233 lb 11.04 oz Most Recent Monitor Data Heart Rate from ECG 76 NIBP 118/73 NIBP BP-Mean 88 Respiration from ECG 11 SpO2 99 I&O: 07/14/18 07/15/18 07/16/18 06:59 06:59 06:59 Intake Total 708 1947 0 Output Total 344 1642 152 Balance 364 305 -152 Result Diagrams: 07/15/18 09:35 07/15/18 09:35 EKG Reviewed by me: Yes (nsr) Phys Exam - Physical Examination Constitutional: NAD on vent HEENT: PERRLA, sclera anicteric Neck: no JVD, supple Respiratory: no wheezing, no rales, no rhonchi coarse sound+ Cardiovascular: RRR, no significant murmur, no rub Gastrointestinal: soft, no distention, positive bowel sounds Musculoskeletal: pulses present, edema present Lymphatic: no nodes Skin: normal turgor Deviation from normal: intertriginous candidiasis Dx/Plan (1) Acute metabolic encephalopathy Code(s): G93.41 - METABOLIC ENCEPHALOPATHY Status: Acute (2) Acute respiratory failure with hypercapnia Code(s): J96.02 - ACUTE RESPIRATORY FAILURE WITH HYPERCAPNIA Status: Acute (3) COPD exacerbation Code(s): J44.1 - CHRONIC OBSTRUCTIVE PULMONARY DISEASE W (ACUTE) EXACERBATION Status: Acute (4) Severe sepsis Code(s): A41.9 - SEPSIS, UNSPECIFIED ORGANISM; R65.20 - SEVERE SEPSIS WITHOUT SEPTIC SHOCK Status: Acute (5) Type [address] elevation Code(s): I21.A1 - MYOCARDIAL INFARCTION TYPE 2 Status: Acute (6) UTI (urinary tract infection) Status: Acute Qualifiers: Urinary tract infection type: acute cystitis Hematuria presence: without hematuria Qualified Code(s): N30.00 - Acute cystitis without hematuria (7) Anxiety and depression Code(s): F41.9 - ANXIETY DISORDER, UNSPECIFIED; F32.9 - MAJOR DEPRESSIVE DISORDER, SINGLE EPISODE, UNSPECIFIED Status: Chronic (8) Dyslipidemia Code(s): E78.5 - HYPERLIPIDEMIA, UNSPECIFIED Status: Chronic (9) GERD (gastroesophageal reflux disease) Code(s): K21.9 - GASTRO-ESOPHAGEAL REFLUX DISEASE WITHOUT ESOPHAGITIS Status: Chronic (10) Hypertension Code(s): I10 - ESSENTIAL (PRIMARY) HYPERTENSION Status: Chronic Qualifiers: Hypertension type: essential hypertension Qualified Code(s): I10 - Essential (primary) hypertension (11) Macrocytic anemia Code(s): D53.9 - NUTRITIONAL ANEMIA, UNSPECIFIED Status: Chronic (12) Morbid obesity with BMI of 40.0-44.9, adult Code(s): E66.01 - MORBID (SEVERE) OBESITY DUE TO EXCESS CALORIES; Z68.41 - BODY MASS INDEX (BMI) 40.0-44.9, ADULT Status: Chronic (13) Community acquired bacterial pneumonia Code(s): J15.9 - UNSPECIFIED BACTERIAL PNEUMONIA Status: Acute (14) Intertriginous candidiasis Code(s): B37.2 - CANDIDIASIS OF SKIN AND NAIL Status: Acute - Plan cont current plan of care, continue antibiotics, respiratory therapy * continue vancomycin and zosyn * micafungin added * medication reviewed as below * symptomatic treatment * vent as per pulmonary * supportive care. Review of Systems - Review of Systems Other: unable to review due to intubated status - Medications/Allergies Allergies/Adverse Reactions: Allergies Allergy/AdvReac Type Severity Reaction Status Date / Time oxycodone [From OxyContin] Allergy severe n/v Verified 06/27/17 15:00 Medications: Current Medications Acetaminophen (Tylenol) 650 mg [place] Q4H PRN PRN Reason: Headache/Fever/Mild Pain (1-3) Acetaminophen (Tylenol) 650 mg PO Q6H PRN PRN Reason: Mild Pain (1-3) Artificial Tears (Tears Naturale) 2 drop EA EYE PRN PRN PRN Reason: Dry Eyes Bisacodyl (Dulcolax) 10 mg [place] DAILYPRN PRN PRN Reason: Constipation Bisacodyl (Dulcolax) 10 mg [place] DAILYPRN PRN PRN Reason: Constipation Clotrimazole (Lotrimin 1% Cream) 0 gm TOP BID [facility] Stop: 07/21/18 09:01 Last Admin: 07/15/18 09:38 Dose: 1 applic Cyanocobalamin (Vitamin B-12) 1,000 mcg PO DAILY [facility] Last Admin: 07/15/18 09:37 Dose: 1,000 mcg Enoxaparin Sodium (Lovenox) 40 mg SC 0900 [facility] Last Admin: 07/15/18 09:37 Dose: 40 mg Folic Acid (Folvite) 1 mg PO DAILY [facility] Last Admin: 07/15/18 09:37 Dose: 1 mg Guaifenesin (Robitussin Sf) 200 mg PO Q4H PRN PRN Reason: Cough Hydralazine HCl (Apresoline) 10 mg SLOW IVP Q4H PRN PRN Reason: SBP > 180 and HR < 70 Fentanyl Citrate 2,000 mcg/ (Sodium Chloride) 100 mls @ 0 mls/hr IV INF [facility]; Protocol Stop: 08/12/18 19:08 Last Admin: 07/15/18 04:17 Dose: 100 mls Piperacillin Sod/Tazobactam (Sod 4.5 gm/ Sodium Chloride) 100 mls @ 200 mls/hr IVPB 0400,1200,2000 [facility] Last Admin: 07/15/18 04:23 Dose: 100 mls Fentanyl Citrate (Fentanyl Bolus) 250 mls @ 0 mls/hr IVPB PRN PRN PRN Reason: Breakthrough pain/agitation Stop: 08/12/18 23:01 Dextrose/Water (D5w) 1,000 mls @ 50 mls/hr IV .Q20H [facility] Last Admin: 07/14/18 16:24 Dose: 1,000 mls Micafungin Sodium 100 mg/ (Sodium Chloride) 100 mls @ 100 mls/hr IVPB 1000 [facility] Loperamide HCl (Imodium) 2 mg PO PRN PRN PRN Reason: Diarrhea/Loose Stools Loratadine (Claritin) 10 mg PO DAILYPRN PRN PRN Reason: Sinus Symptoms Miscellaneous Medication (Pharmacy To Dose) 1 each IVPB ONE [facility] Stop: 08/12/18 22:16 Discontinue Previous Narcotic Pain Medications And Benzodiazepines 1 each FS .ONE [facility] Stop: 08/12/18 23:01 Nystatin (Mycostatin Powder) 1 gm TOP BIDPRN PRN PRN Reason: Topical Irritations Last Admin: 07/14/18 20:05 Dose: 1 applic Ondansetron HCl (Zofran Odt) 4 mg PO Q6H PRN PRN Reason: Nausea/Vomiting Ondansetron HCl (Zofran) 4 mg IVP Q6H PRN PRN Reason: Nausea/Vomiting Pantoprazole Sodium (Protonix) 40 mg IVP DAILY [facility] Last Admin: 07/15/18 09:37 Dose: 40 mg Prednisone (Prednisone) 40 mg PO QAM[facility] Last Admin: 07/15/18 09:36 Dose: 40 mg Propofol (Diprivan) 1,000 mg IV INF PRN; Protocol PRN Reason: TO ACHIEVE GOAL RASS Stop: 08/12/18 23:01 Last Admin: 07/15/18 09:36 Dose: 1,000 mg Propofol (Diprivan Bolus) 20 mg IV Q5MIN PRN PRN Reason: BREAKTHROUGH AGITATION Stop: 08/12/18 23:01 Saccharomyces Boulardii (Florastor) 250 mg PO DAILY [facility] Last Admin: 07/15/18 09:37 Dose: 250 mg Sodium Chloride ([place] Nasal [place] 0.65%) 0 ml EA NARE QIDPRN PRN PRN Reason: Nasal Congestion Sodium Chloride (Flush - Normal Saline) 10 ml IVF Q12HR [facility] Last Admin: 07/15/18 09:38 Dose: 10 ml Sodium Chloride (Flush - Normal Saline) 10 ml IVF PRN PRN PRN Reason: Saline Flush Sodium Chloride (Normal Saline Pf) 10 ml FS PRN PRN PRN Reason: RECONSTITUTION Last Admin: 07/14/18 10:15 Dose: 10 ml
[2018-07-15] MEDS: Vancomycin HCl 1.5 GM in Sodium Chloride 0.9% 250 ML 300 ML IVPB SCH (10:54)
[2018-07-15] MEDS: Micafungin 100 MG in Sodium Chloride 0.9% 100 ML IVPB SCH (11:15)
[2018-07-15] MEDS: Dextrose 5% in Water 1,000 ML IV SCH (11:20)
[2018-07-16] MEDS: Piperacillin/Tazobactam 4.5 GM in Sodium Chloride 0.9% 100 ML IVPB SCH ×3 (03:45→20:23)
[2018-07-16] MEDS: Propofol 1,000 MG/100 ML VIAL IV PRN (04:07)
[2018-07-16 04:22] LABS: #Eosinphils 0.1 thou/uL (0.0-0.7); #Monocytes 0.7 thou/uL (0.11-0.59); #Neutrophils 4.4 thou/uL (1.40-6.50); %Basophils 0.1 % (0.0-1.0); %Eosinophils 1.1 % (0.0-10.0); %Lymphocytes 16.4 % (21.0-51.0); %Neutrophils 71.4 % (42.0-75.0); Hemoglobin 10.5 g/dL (12.0-16.0); Mean Corpuscular HGB CONC 31.6 g/dL (32.0-36.0); Mean Corpuscular Hemoglobin 31.4 pg (27.0-31.0); Mean Corpuscular Volume 99.6 fL (78.0-98.0); Mean Platelet Volume 8.1 fL (7.4-10.4); Platelet Count 226 thou/uL (130-400); Red Blood Cell (RBC) Count 3.34 mill/uL (4.20-5.40); White Blood Cell (WBC) Count 6.2 thou/uL (4.8-10.8)
[2018-07-16 04:43] LABS: BUN (Urea Nitrogen) 17 mg/dL (9.8-20.1); Calc. Creatinine Clearance 146 mL/min (70-130); Calcium 8.2 mg/dL (7.8-10.44); Estimated GFR-MDRD 90; Glucose 115 mg/dL (80-115); Magnesium 1.6 mg/dL (1.6-2.6); Phosphorus 3.3 mg/dL (2.3-4.7)
[2018-07-16 04:54] LABS: Anion Gap 12 mmol/L (10-20); Carbon Dioxide 38 mmol/L (23-31); Chloride 96 mmol/L (98-107); Sodium 143 mmol/L (136-145)
[2018-07-16] MEDS ORDERED: Potassium Chloride 40 MEQ in Premix Bag 1 BAG IVPB SCH (08:00)
[2018-07-16] MEDS ORDERED: Furosemide 40 MG/4 ML VIAL SLOW IVP SCH (09:00)
[2018-07-16] MEDS: predniSONE 20 MG TAB PO SCH (09:04)
[2018-07-16] MEDS: Folic Acid 1 MG TAB PO SCH (09:04)
[2018-07-16] MEDS: Saccharomyces boulardii 250 MG CAP PO SCH (09:05)
[2018-07-16] MEDS: Enoxaparin Sodium 40 MG/0.4 ML SYRINGE SC SCH (09:05)
[2018-07-16] MEDS: Clotrimazole 1 % Cream 30 GM TUBE TOP SCH (09:06)
[2018-07-16] MEDS: Pantoprazole 40 MG VIAL IVP SCH (09:06)
[2018-07-16] MEDS: fentaNYL Citrate/PF 2,000 MCG in Sodium Chloride 0.9% 60 ML IV SCH ×2 (09:07→23:09)
[2018-07-16] MEDS: Dextrose 5% in Water 1,000 ML IV SCH ×2 (09:44→20:24)
[2018-07-16] MEDS ORDERED: Magnesium 2 GM/50 ML 2 GM in Premix Bag 1 BAG IVPB SCH (09:45)
--- NOTE | 2018-07-16 10:15 | PRG ---
DATE OF SERVICE: 07/16/2018 SERVICE: Pulmonary Medicine. INTERVAL HISTORY: The patient is doing okay from respiratory standpoint. That being said, her lungs are really not opening a lot. I am starting to think that she has a chronic obstructive airflow limitation and this is basically her baseline. She is starting to make a little bit better urine. She cannot provide any additional elements of the history. Whenever we light sedation up, she starts biting endotracheal tube resulting in very low tidal volumes and respiratory distress/ventilator dyssynchrony. There were no significant overnight events. PHYSICAL EXAMINATION: VITAL SIGNS: Afebrile, pulse 64, blood pressure 122/90, respirations 11, and saturation 93% on 27% FiO2 and a PEEP of 5. GENERAL: The patient is intubated and sedated. HEENT: Normocephalic and atraumatic. Sclerae are white. Conjunctivae are pink. Oral mucosa is moist without lesions. LUNGS: Prolonged expiratory phase is present, but there is no longer wheezing. Crackles are noted. No rhonchi. HEART: Normal rate, regular. ABDOMEN: Soft, nontender, and nondistended. Bowel sounds are positive. MUSCULOSKELETAL: No cyanosis or clubbing. There is 1+ to 2+ pitting in bilateral lower extremities. NEUROLOGIC: Grossly nonfocal. LABORATORY DATA: WBC 6.2, hemoglobin 10.5, and platelets 226,000. Creatinine 0.66 and stable. Potassium 3.0. Magnesium 1.6, phosphorus 3.3. Urine culture is growing both Pseudomonas aeruginosa and E coli. Both of these are sensitive to are Zosyn. One of two blood cultures growing coag-negative staph. Bronchial aspirate actually has very few white blood cells identified. ASSESSMENT: 1. Acute on chronic hypoxic and hypercapnic respiratory failure. 2. Severe sepsis. 3. Urinary tract infection secondary to Pseudomonas and Escherichia coli. 4. Metabolic encephalopathy. 5. Community-acquired pneumonia. 6. Chronic obstructive pulmonary disease with acute exacerbation. DISCUSSION AND PLAN: We will continue our steroids, nebulized medications, and antibiotics. I will replace potassium and magnesium today. We will give her a dose of Lasix. I will schedule a daily dose of Lasix as she remains significantly volume overloaded. We will continue the free water for the time being to prevent resurgence in hypernatremia. After the Lasix takes effect, I will put her on a spontaneous breathing trial and if she meets criteria after 30 minutes, extubation will be considered. I appreciate that we may need to move towards noninvasive ventilation in a short period of time after extubation, but given her relative debility, and being intubated for 3 days already, we will need to get this tube out as soon as possible to prevent her from being dependent on mechanical ventilation long-term. Critical care time: 30 minutes. Job ID: [id number] MTDD
--- NOTE | 2018-07-16 10:32 | PDOC.PN ---
- Subjective Encounter Start Date: 07/16/18 Encounter Start Time: 10:10 Patient seen and examined. pt is on vent, No overnight events - Objective Resuscitation Status - Order Detail: 07/13/18 21:39 Resuscitation Status Routine Resuscitation Status: FULL: Full Resuscitation MAR Reviewed: Yes Vital Signs & Weight: Vital Signs (12 hours) Temp Pulse Resp BP Pulse Ox 07/16/18 10:00 13 07/16/18 08:00 11 L 94 L 07/16/18 07:47 72 100/65 07/16/18 07:27 98.6 F 07/16/18 06:00 11 L 07/16/18 04:00 99.2 F 11 L 07/16/18 02:17 52 L 07/16/18 02:00 11 L 07/16/18 00:00 99.1 F 11 L 07/15/18 22:33 57 L Weight Admit Weight 227 lb 15.327 oz Weight 233 lb 11.04 oz Most Recent Monitor Data Heart Rate from ECG 87 NIBP 130/97 NIBP BP-Mean 108 Respiration from ECG 17 SpO2 91 I&O: 07/15/18 07/16/18 07/17/18 06:59 06:59 06:59 Intake Total 1947 2529.7 Output Total 1642 632 705 Balance 305 1897.7 -705 Result Diagrams: 07/16/18 04:15 07/16/18 04:15 EKG Reviewed by me: Yes (nsr) Phys Exam - Physical Examination Constitutional: NAD on vent HEENT: PERRLA, sclera anicteric Neck: no JVD, supple Respiratory: no wheezing, no rhonchi coarse sound+ Cardiovascular: RRR, no significant murmur, no rub Gastrointestinal: soft, no distention, positive bowel sounds Musculoskeletal: pulses present, edema present Lymphatic: no nodes Skin: no rash, normal turgor Dx/Plan (1) Acute metabolic encephalopathy Code(s): G93.41 - METABOLIC ENCEPHALOPATHY Status: Acute (2) Acute respiratory failure with hypercapnia Code(s): J96.02 - ACUTE RESPIRATORY FAILURE WITH HYPERCAPNIA Status: Acute (3) COPD exacerbation Code(s): J44.1 - CHRONIC OBSTRUCTIVE PULMONARY DISEASE W (ACUTE) EXACERBATION Status: Acute (4) Severe sepsis Code(s): A41.9 - SEPSIS, UNSPECIFIED ORGANISM; R65.20 - SEVERE SEPSIS WITHOUT SEPTIC SHOCK Status: Acute (5) Type [address] elevation Code(s): I21.A1 - MYOCARDIAL INFARCTION TYPE 2 Status: Acute (6) UTI (urinary tract infection) Status: Acute Qualifiers: Urinary tract infection type: acute cystitis Hematuria presence: without hematuria Qualified Code(s): N30.00 - Acute cystitis without hematuria (7) Anxiety and depression Code(s): F41.9 - ANXIETY DISORDER, UNSPECIFIED; F32.9 - MAJOR DEPRESSIVE DISORDER, SINGLE EPISODE, UNSPECIFIED Status: Chronic (8) Dyslipidemia Code(s): E78.5 - HYPERLIPIDEMIA, UNSPECIFIED Status: Chronic (9) GERD (gastroesophageal reflux disease) Code(s): K21.9 - GASTRO-ESOPHAGEAL REFLUX DISEASE WITHOUT ESOPHAGITIS Status: Chronic (10) Hypertension Code(s): I10 - ESSENTIAL (PRIMARY) HYPERTENSION Status: Chronic Qualifiers: Hypertension type: essential hypertension Qualified Code(s): I10 - Essential (primary) hypertension (11) Macrocytic anemia Code(s): D53.9 - NUTRITIONAL ANEMIA, UNSPECIFIED Status: Chronic (12) Morbid obesity with BMI of 40.0-44.9, adult Code(s): E66.01 - MORBID (SEVERE) OBESITY DUE TO EXCESS CALORIES; Z68.41 - BODY MASS INDEX (BMI) 40.0-44.9, ADULT Status: Chronic (13) Community acquired bacterial pneumonia Code(s): J15.9 - UNSPECIFIED BACTERIAL PNEUMONIA Status: Acute (14) Intertriginous candidiasis Code(s): B37.2 - CANDIDIASIS OF SKIN AND NAIL Status: Acute (15) Hypokalemia Code(s): E87.6 - HYPOKALEMIA Status: Acute - Plan cont current plan of care, continue antibiotics, respiratory therapy * continue zosyn and micafungin * precedex for sedation * replace potassium today * agree with lasix for her current volume overload status * medication reviewed as below * symptomatic treatment. Review of Systems - Review of Systems Other: unable to review due to intubated status - Medications/Allergies Allergies/Adverse Reactions: Allergies Allergy/AdvReac Type Severity Reaction Status Date / Time oxycodone [From OxyContin] Allergy severe n/v Verified 06/27/17 15:00 Medications: Current Medications Acetaminophen (Tylenol) 650 mg IN Q4H PRN PRN Reason: Headache/Fever/Mild Pain (1-3) Acetaminophen (Tylenol) 650 mg PO Q6H PRN PRN Reason: Mild Pain (1-3) Artificial Tears (Tears Naturale) 2 drop EA EYE PRN PRN PRN Reason: Dry Eyes Bisacodyl (Dulcolax) 10 mg IN DAILYPRN PRN PRN Reason: Constipation Bisacodyl (Dulcolax) 10 mg IN DAILYPRN PRN PRN Reason: Constipation Cyanocobalamin (Vitamin B-12) 1,000 mcg PO DAILY [facility] Last Admin: 07/15/18 09:37 Dose: 1,000 mcg Enoxaparin Sodium (Lovenox) 40 mg SC 09 [facility] Last Admin: 07/16/18 09:05 Dose: 40 mg Folic Acid (Folvite) 1 mg PO DAILY [facility] Last Admin: 07/16/18 09:04 Dose: 1 mg Furosemide (Lasix) 40 mg SLOW IVP NOW [facility] Stop: 07/16/18 11:00 Last Admin: 07/16/18 09:06 Dose: 40 mg Furosemide (Lasix) 40 mg SLOW IVP 0600 [facility] Stop: 07/18/18 06:01 Guaifenesin (Robitussin Sf) 200 mg PO Q4H PRN PRN Reason: Cough Hydralazine HCl (Apresoline) 10 mg SLOW IVP Q4H PRN PRN Reason: SBP > 180 and HR < 70 Fentanyl Citrate 2,000 mcg/ (Sodium Chloride) 100 mls @ 0 mls/hr IV INF [facility]; Protocol Stop: 08/12/18 19:08 Last Admin: 07/16/18 09:07 Dose: 100 mls Piperacillin Sod/Tazobactam (Sod 4.5 gm/ Sodium Chloride) 100 mls @ 200 mls/hr IVPB 0400,1200,2000 [facility] Last Admin: 07/16/18 03:45 Dose: 100 mls Fentanyl Citrate (Fentanyl Bolus) 250 mls @ 0 mls/hr IVPB PRN PRN PRN Reason: Breakthrough pain/agitation Stop: 08/12/18 23:01 Dextrose/Water (D5w) 1,000 mls @ 50 mls/hr IV .Q20H [facility] Last Admin: 07/16/18 09:44 Dose: 1,000 mls Micafungin Sodium 100 mg/ (Sodium Chloride) 100 mls @ 100 mls/hr IVPB 1000 [facility] Last Admin: 07/15/18 11:15 Dose: 100 mls Potassium Chloride 40 meq/ (Device) 100 mls @ 25 mls/hr IVPB NOW [facility] Stop: 07/16/18 12:00 Last Admin: 07/16/18 09:06 Dose: 100 mls Dexmedetomidine HCl 200 mcg/ (Sodium Chloride) 50 mls @ 0 mls/hr IVPB INF [facility]; Protocol Magnesium Sulfate 2 gm/ Device 50 mls @ 100 mls/hr IVPB NOW [facility] Stop: 07/16/18 12:00 Loperamide HCl (Imodium) 2 mg PO PRN PRN PRN Reason: Diarrhea/Loose Stools Loratadine (Claritin) 10 mg PO DAILYPRN PRN PRN Reason: Sinus Symptoms Discontinue Previous Narcotic Pain Medications And Benzodiazepines 1 each FS .ONE [facility] Stop: 08/12/18 23:01 Nystatin (Mycostatin Powder) 1 gm TOP BIDPRN PRN PRN Reason: Topical Irritations Last Admin: 07/14/18 20:05 Dose: 1 applic Ondansetron HCl (Zofran Odt) 4 mg PO Q6H PRN PRN Reason: Nausea/Vomiting Ondansetron HCl (Zofran) 4 mg IVP Q6H PRN PRN Reason: Nausea/Vomiting Pantoprazole Sodium (Protonix) 40 mg IVP DAILY [facility] Last Admin: 07/16/18 09:06 Dose: 40 mg Potassium Chloride (Klor-Con) 40 meq PO Q4H [facility] Stop: 07/16/18 13:31 Prednisone (Prednisone) 40 mg PO QAM-[facility] Last Admin: 07/16/18 09:04 Dose: 40 mg Propofol (Diprivan) 1,000 mg IV INF PRN; Protocol PRN Reason: TO ACHIEVE GOAL RASS Stop: 08/12/18 23:01 Last Admin: 07/16/18 04:07 Dose: 1,000 mg Propofol (Diprivan Bolus) 20 mg IV Q5MIN PRN PRN Reason: BREAKTHROUGH AGITATION Stop: 08/12/18 23:01 Saccharomyces Boulardii (Florastor) 250 mg PO DAILY [facility] Last Admin: 07/16/18 09:05 Dose: 250 mg Sodium Chloride ([place] Nasal [place] 0.65%) 0 ml EA NARE QIDPRN PRN PRN Reason: Nasal Congestion Sodium Chloride (Flush - Normal Saline) 10 ml IVF Q12HR [facility] Last Admin: 07/16/18 09:47 Dose: 10 ml Sodium Chloride (Flush - Normal Saline) 10 ml IVF PRN PRN PRN Reason: Saline Flush Sodium Chloride (Normal Saline Pf) 10 ml FS PRN PRN PRN Reason: RECONSTITUTION Last Admin: 07/14/18 10:15 Dose: 10 ml
[2018-07-16] MEDS: Micafungin 100 MG in Sodium Chloride 0.9% 100 ML IVPB SCH (10:49)
[2018-07-16] MEDS: Cyanocobalamin (Vitamin B-12) 1,000 MCG TAB PO SCH (12:37)
[2018-07-17 02:54] LABS: #Lymphocytes 0.9 thou/uL (1.20-3.40); #Monocytes 0.8 thou/uL (0.11-0.59); #Neutrophils 5.1 thou/uL (1.40-6.50); %Basophils 0.3 % (0.0-1.0); %Eosinophils 0.5 % (0.0-10.0); %Lymphocytes 12.5 % (21.0-51.0); %Monocytes 11.4 % (0.0-10.0); %Neutrophils 75.3 % (42.0-75.0); Hemoglobin 10.3 g/dL (12.0-16.0); Mean Corpuscular HGB CONC 31.3 g/dL (32.0-36.0); Mean Corpuscular Hemoglobin 31.2 pg (27.0-31.0); Mean Corpuscular Volume 99.5 fL (78.0-98.0); Mean Platelet Volume 8.3 fL (7.4-10.4); Platelet Count 235 thou/uL (130-400); Red Blood Cell (RBC) Count 3.32 mill/uL (4.20-5.40); White Blood Cell (WBC) Count 6.8 thou/uL (4.8-10.8)
[2018-07-17 03:20] LABS: Phosphorus 3.1 mg/dL (2.3-4.7)
[2018-07-17 03:22] LABS: BUN (Urea Nitrogen) 16 mg/dL (9.8-20.1); Calc. Creatinine Clearance 148 mL/min (70-130); Calcium 8.3 mg/dL (7.8-10.44); Estimated GFR-MDRD Greater than 90; Glucose 125 mg/dL (80-115); Magnesium 1.9 mg/dL (1.6-2.6)
[2018-07-17 03:31] LABS: Anion Gap 14 mmol/L (10-20); Carbon Dioxide 35 mmol/L (23-31); Chloride 97 mmol/L (98-107); Potassium 3.9 mmol/L (3.5-5.1); Sodium 142 mmol/L (136-145)
[2018-07-17] MEDS: Piperacillin/Tazobactam 4.5 GM in Sodium Chloride 0.9% 100 ML IVPB SCH ×3 (03:54→19:57)
[2018-07-17] MEDS: Furosemide 40 MG/4 ML VIAL SLOW IVP SCH (06:03)
--- NOTE | 2018-07-17 09:00 | PRG ---
DATE OF SERVICE: 07/17/2018 SUBJECTIVE: A 63-year-old female, who is intubated. Last chest x-ray showed no acute infiltrates. She is on Precedex drip and she is on a fentanyl drip. Complaining of back pain. Appears to be slightly encephalopathic. OBJECTIVE: VITAL SIGNS: Temperature 98, pulse 115, blood pressure 105/75, respirations 18, and sats are 95%. I's and O's; 3213 in, 2444 output. CHEST: Decreased breath sounds. Minimal rhonchi. CARDIAC: Normal S1 and S2. No gallop. ABDOMEN: No masses. DIAGNOSTIC DATA: Urine has Pseudomonas. IMPRESSION: 1. Respiratory failure. 2. Chronic obstructive pulmonary disease. 3. Chronic pain. 4. Urinary tract infection. PLAN: Continue present antibiotic. Coverage both Pseudomonas and E coli in the urine. Try to minimize sedation at this stage. She is on CPAP. Hopefully, she can be extubated when she is little more awake in the next 24 to 48 hours. One-half hour of critical care time. Job ID: [id number]
[2018-07-17 09:09] LABS: Actual Bicarbonate (HCO3a) 41.9 mEq/L (22-28); Base Excess (BEa) 16.1 mEq/L (-2.0 to +3.0); CO2 Tension 56.7 mmHg (35.0-45.0); Calcium, Ionized 1.07 mmol/L (1.12-1.30); Carboxyhemoglobin (COHb) 1.1 gm% (0.0-3.0); Hemoglobin (Hb) 11.6 g/dL (12.0-16.0); O2 Tension (PaO2) 65.6 mmHg (> 80.0); Potassium - ABG Lab 3.26 mmol/L (3.70-5.30); pH, Arterial 7.49 (7.35-7.45)
[2018-07-17 09:11] LABS: ALV-art Gradient 84.555 (0-20); Puncture Site RBA
[2018-07-17] MEDS ORDERED: DC Sedation Protocol FS ONE (10:21)
[2018-07-17] MEDS: Pantoprazole 40 MG VIAL IVP SCH (10:29)
[2018-07-17] MEDS: Enoxaparin Sodium 40 MG/0.4 ML SYRINGE SC SCH (10:30)
[2018-07-17] MEDS: Cyanocobalamin (Vitamin B-12) 1,000 MCG TAB PO SCH (10:33)
[2018-07-17] MEDS: predniSONE 20 MG TAB PO SCH (10:33)
[2018-07-17] MEDS: Folic Acid 1 MG TAB PO SCH (10:34)
[2018-07-17] MEDS: Saccharomyces boulardii 250 MG CAP PO SCH (10:34)
[2018-07-17] MEDS: Micafungin 100 MG in Sodium Chloride 0.9% 100 ML IVPB SCH (10:37)
--- NOTE | 2018-07-17 11:32 | PQF ---
GREGORY YBARRAOTONIEL [id number] CLINICAL DOCUMENTATION IMPROVEMENT CLARIFICATION FORM: ICD-10 Updated PLEASE DO AN ADDENDUM TO THE PROGRESS NOTE WITH ANY DOCUMENTATION UPDATES OR ADDITIONS AND CARRY THROUGH TO DC SUMMARY. THANK YOU. DATE: 07/17/18 ATTN: DR.D MOY Please exercise your independent, professional judgment in responding to the clarification form. Clinical indicators are provided on the bottom of this form for your review Please check appropriate box(s): Conflicting documentation was noted in the Medical Record, please clarify if patient is being treated/monitored for: [ ] ACUTE HYPERCAPNIC RESPIRATORY FAILURE [ ] ACUTE ON CHRONIC HYPOXIC AND HYPERCAPNIC RESPIRATORY FAILURE [ ] Other diagnosis [ ] Unable to determine In addition, please specify: Present on Admission (POA): [ ] Yes [ ] No [ ] Unable to determine For continuity of documentation, please document condition throughout progress notes and discharge summary. Thank You. CLINICAL INDICATORS - SIGNS / SYMPTOMS/ LABS 07/13 pCO2 95.7 07/14 (H & P) KIM : ASSESSMENT AND PLAN 1). ACUTE HYPERCAPNIC RESPIRATORY FAILURE WITH ACUTE RESPIRATORY ACIDOSIS SEEM WITH PH 7.32, Pco2 95. PT GO INTUBATED BY THE TIME OF MY EXAMINATION. THE PATIENT WAS STABLE AND WILL BE PLACED IN ICU. WE WILL CONSULT PULMONARY AND FOLLOW RECOMMENDATIONS. 07/14 PULMONARY CONSULT A/P: 1) ACUTE RESPIRATORY FAILURE WITH HYPERCAPNIA, PT COMES IN WITH ACUTE HYPOXIC HYPERCAPNIC RESP FAILURE 2/2 COPD EXACERBATION FROM RLL PNEUMONIA. 07/14 PN (CRISTOFER) DX/PLAN: 2) ACUTE RESPIRATORY FAILURE WITH HYPERCAPNIA 07/15 PN (BRADING) ASSESSMENT: 1) ACUTE ON CHRONIC HYPOXIC AND HYPERCAPNIC RESPIRATORY FAILURE 07/15 PN (CRISTOFER) DX/PLAN: 2) ACUTE RESPIRATORY FAILURE WITH HYPERCAPNIA 07/16 PN (BRADING) ASSESSMENT 1). ACUTE ON CHRONIC HYPOXIC AND HYPERCAPNIC RESPIRATORY FAILURE 07/16 PN (CRISTOFER) DX/PLAN: 2) ACUTE RESPIRATORY FAILURE WITH HYPERCAPNIA 07/17 PN (KERN) IMPRESSION : 1) RESPIRATORY FAILURE RISK: COPD EXACERBATION (PULMONARY CONSULT) PT WEARS HOME O2 AT 4L/NC (ED REPORT) PNEUMONIA (H & P) TREATMENTS: MECHANICAL INTUBATION (07/13-PRESENT) PULMONARY CONSULT THANK YOU! JYOTI (This form is maintained as a part of the permanent medical record) 2014 [employer] All Rights Reserved SULTANA [email or web address] [phone] MTDD
[2018-07-17] MEDS: Ondansetron PF 4 MG/2 ML Vial IVP PRN (12:55)
[2018-07-17] MEDS: Promethazine HCl 25 MG/ML VIAL SLOW IVP PRN (15:14)
--- NOTE | 2018-07-17 16:03 | PDOC.PN ---
- Subjective Encounter Start Date: 07/17/18 Encounter Start Time: 11:00 Pt seen for followup re: acute on chronic hypoxic and hypercapnic respiratory failure. Intubated, unable to answer questions, could not complete ROS. - Objective Resuscitation Status - Order Detail: 07/13/18 21:39 Resuscitation Status Routine Resuscitation Status: FULL: Full Resuscitation MAR Reviewed: Yes Vital Signs & Weight: Vital Signs (12 hours) Temp Pulse Resp BP Pulse Ox 07/17/18 12:00 98.9 F 07/17/18 10:23 94 L 07/17/18 10:00 23 H 07/17/18 08:20 17 07/17/18 08:16 115 H 105/75 07/17/18 08:00 98.9 F 18 07/17/18 06:00 11 L Weight Admit Weight 227 lb 15.327 oz Weight 242 lb 11.663 oz Most Recent Monitor Data Heart Rate from ECG 113 NIBP 148/98 NIBP BP-Mean 114 Respiration from ECG 18 SpO2 99 I&O: 07/16/18 07/17/18 07/18/18 06:59 06:59 06:59 Intake Total 2529.7 3213.8 85.4 Output Total 632 2448 3465 Balance 1897.7 765.8 -3379.6 Result Diagrams: 07/17/18 02:45 07/17/18 02:45 EKG Reviewed by me: Yes (Tele: NSR) Phys Exam - Physical Examination Intubated HEENT: moist MMs ETT Respiratory: clear to auscultation bilateral S1, S2, reg, tachy Gastrointestinal: soft Neurological: moves all 4 limbs Deviation from normal: Unable to assess Dx/Plan (1) Acute on chronic respiratory failure with hypoxia and hypercapnia Code(s): J96.21 - ACUTE AND CHRONIC RESPIRATORY FAILURE WITH HYPOXIA; J96.22 - ACUTE AND CHRONIC RESPIRATORY FAILURE WITH HYPERCAPNIA Status: Acute Comment : secondary to COPD exacerbation, present on admission (2) COPD exacerbation Code(s): J44.1 - CHRONIC OBSTRUCTIVE PULMONARY DISEASE W (ACUTE) EXACERBATION Status: Acute Comment: Improving, on vent (3) UTI (urinary tract infection) Status: Acute Comment: Pseudomonas and E. coli UTI, on IV Zosyn (4) GERD (gastroesophageal reflux disease) Code(s): K21.9 - GASTRO-ESOPHAGEAL REFLUX DISEASE WITHOUT ESOPHAGITIS Status: Chronic Comment: continue Protonix (5) Hypertension Code(s): I10 - ESSENTIAL (PRIMARY) HYPERTENSION Status: Chronic Qualifiers: Hypertension type: essential hypertension Qualified Code(s): I10 - Essential (primary) hypertension (6) Morbid obesity with BMI of 40.0-44.9, adult Code(s): E66.01 - MORBID (SEVERE) OBESITY DUE TO EXCESS CALORIES; Z68.41 - BODY MASS INDEX (BMI) 40.0-44.9, ADULT Status: Chronic - Plan * . Review of Systems - Medications/Allergies Allergies/Adverse Reactions: Allergies Allergy/AdvReac Type Severity Reaction Status Date / Time oxycodone [From OxyContin] Allergy severe n/v Verified 06/27/17 15:00 Medications: Current Medications Acetaminophen (Tylenol) 650 mg OK Q4H PRN PRN Reason: Headache/Fever/Mild Pain (1-3) Acetaminophen (Tylenol) 650 mg PO Q6H PRN PRN Reason: Mild Pain (1-3) Artificial Tears (Tears Naturale) 2 drop EA EYE PRN PRN PRN Reason: Dry Eyes Bisacodyl (Dulcolax) 10 mg OK DAILYPRN PRN PRN Reason: Constipation Bisacodyl (Dulcolax) 10 mg OK DAILYPRN PRN PRN Reason: Constipation Cyanocobalamin (Vitamin B-12) 1,000 mcg PO DAILY [facility] Last Admin: 07/17/18 10:33 Dose: Not Given Enoxaparin Sodium (Lovenox) 40 mg SC 0900 [facility] Last Admin: 07/17/18 10:30 Dose: Not Given Folic Acid (Folvite) 1 mg PO DAILY [facility] Last Admin: 07/17/18 10:34 Dose: Not Given Furosemide (Lasix) 40 mg SLOW IVP 0600 [facility] Stop: 07/18/18 06:01 Last Admin: 07/17/18 06:03 Dose: 40 mg Guaifenesin (Robitussin Sf) 200 mg PO Q4H PRN PRN Reason: Cough Hydralazine HCl (Apresoline) 10 mg SLOW IVP Q4H PRN PRN Reason: SBP > 180 and HR < 70 Piperacillin Sod/Tazobactam (Sod 4.5 gm/ Sodium Chloride) 100 mls @ 200 mls/hr IVPB 0400,1200,2000 [facility] Last Admin: 07/17/18 11:50 Dose: 100 mls Dextrose/Water (D5w) 1,000 mls @ 50 mls/hr IV .Q20H [facility] Last Admin: 07/16/18 20:24 Dose: 1,000 mls Micafungin Sodium 100 mg/ (Sodium Chloride) 100 mls @ 100 mls/hr IVPB 1000 [facility] Last Admin: 07/17/18 10:37 Dose: 100 mls Dexmedetomidine HCl 400 mcg/ (Sodium Chloride) 100 mls @ 0 mls/hr IVPB INF [facility] ; Protocol Last Admin: 07/17/18 02:37 Dose: 100 mls Loperamide HCl (Imodium) 2 mg PO PRN PRN PRN Reason: Diarrhea/Loose Stools Loratadine (Claritin) 10 mg PO DAILYPRN PRN PRN Reason: Sinus Symptoms Nystatin (Mycostatin Powder) 1 gm TOP BIDPRN PRN PRN Reason: Topical Irritations Last Admin: 07/14/18 20:05 Dose: 1 applic Ondansetron HCl (Zofran Odt) 4 mg PO Q6H PRN PRN Reason: Nausea/Vomiting Ondansetron HCl (Zofran) 4 mg IVP Q6H PRN PRN Reason: Nausea/Vomiting Last Admin: 07/17/18 12:55 Dose: 4 mg Pantoprazole Sodium (Protonix) 40 mg IVP DAILY [facility] Last Admin: 07/17/18 10:29 Dose: 40 mg Prednisone (Prednisone) 40 mg PO [facility] Last Admin: 07/17/18 10:33 Dose: Not Given Promethazine HCl (Phenergan) 25 mg SLOW IVP Q6H PRN PRN Reason: Nausea Last Admin: 07/17/18 15:14 Dose: 25 mg Saccharomyces Boulardii (Florastor) 250 mg PO DAILY [facility] Last Admin: 07/17/18 10:34 Dose: Not Given Sodium Chloride ([place] Nasal [place] 0.65%) 0 ml EA NARE QIDPRN PRN PRN Reason: Nasal Congestion Sodium Chloride (Flush - Normal Saline) 10 ml IVF Q12HR [facility] Last Admin: 07/17/18 10:34 Dose: 10 ml Sodium Chloride (Normal Saline Pf) 10 ml FS PRN PRN PRN Reason: RECONSTITUTION Last Admin: 07/14/18 10:15 Dose: 10 ml
[2018-07-18] MEDS: Dextrose 5% in Water 1,000 ML IV SCH ×2 (00:38→21:48)
[2018-07-18] MEDS: Piperacillin/Tazobactam 4.5 GM in Sodium Chloride 0.9% 100 ML IVPB SCH ×3 (04:59→21:47)
[2018-07-18] MEDS: Furosemide 40 MG/4 ML VIAL SLOW IVP SCH (05:00)
[2018-07-18 05:29] LABS: #Basophils 0.1 thou/uL (0.0-0.2); #Eosinphils 0.2 thou/uL (0.0-0.7); #Lymphocytes 1.7 thou/uL (1.20-3.40); #Monocytes 1.2 thou/uL (0.11-0.59); #Neutrophils 5.3 thou/uL (1.40-6.50); %Basophils 0.7 % (0.0-1.0); %Eosinophils 1.8 % (0.0-10.0); %Lymphocytes 20.3 % (21.0-51.0); %Monocytes 14.2 % (0.0-10.0); Hemoglobin 11.3 g/dL (12.0-16.0); Mean Corpuscular HGB CONC 31.8 g/dL (32.0-36.0); Mean Corpuscular Hemoglobin 30.9 pg (27.0-31.0); Mean Corpuscular Volume 97.2 fL (78.0-98.0); Mean Platelet Volume 9.5 fL (7.4-10.4); Platelet Count 320 thou/uL (130-400); RBC Distribution Width 13.8 % (11.5-14.5); Red Blood Cell (RBC) Count 3.65 mill/uL (4.20-5.40); White Blood Cell (WBC) Count 8.4 thou/uL (4.8-10.8)
[2018-07-18 07:40] LABS: Phosphorus 3.4 mg/dL (2.3-4.7)
[2018-07-18 07:42] LABS: Anion Gap 15 mmol/L (10-20); BUN (Urea Nitrogen) 8 mg/dL (9.8-20.1); Calc. Creatinine Clearance 130 mL/min (70-130); Calcium 9.1 mg/dL (7.8-10.44); Carbon Dioxide 34 mmol/L (23-31); Chloride 96 mmol/L (98-107); Estimated GFR-MDRD 86; Glucose 95 mg/dL (80-115); Magnesium 1.9 mg/dL (1.6-2.6); Sodium 142 mmol/L (136-145)
[2018-07-18] MEDS: Folic Acid 1 MG TAB PO SCH (08:56)
[2018-07-18] MEDS: predniSONE 20 MG TAB PO SCH (08:56)
[2018-07-18] MEDS: Saccharomyces boulardii 250 MG CAP PO SCH (08:56)
[2018-07-18] MEDS: Enoxaparin Sodium 40 MG/0.4 ML SYRINGE SC SCH (08:57)
[2018-07-18] MEDS: Cyanocobalamin (Vitamin B-12) 1,000 MCG TAB PO SCH (08:57)
[2018-07-18] MEDS: Pantoprazole 40 MG VIAL IVP SCH (08:58)
[2018-07-18] MEDS: Micafungin 100 MG in Sodium Chloride 0.9% 100 ML IVPB SCH (08:59)
--- NOTE | 2018-07-18 11:27 | PDOC.PN ---
- Subjective Encounter Start Date: 07/18/18 Encounter Start Time: 10:20 -: old records requested/rev Patient seen and examined. No new complaints. No overnight events - Objective Resuscitation Status - Order Detail: 07/13/18 21:39 Resuscitation Status Routine Resuscitation Status: FULL: Full Resuscitation MAR Reviewed: Yes Vital Signs & Weight: Vital Signs (12 hours) Temp Pulse Ox 07/18/18 07:54 96 07/18/18 07:53 98 07/18/18 07:00 97.7 F 07/18/18 04:00 98.6 F 07/18/18 00:00 98.1 F Weight Admit Weight 227 lb 15.327 oz Weight 218 lb 0.595 oz Most Recent Monitor Data Heart Rate from ECG 107 NIBP 173/145 NIBP BP-Mean 154 Respiration from ECG 20 SpO2 98 I&O: 07/17/18 07/18/18 07/19/18 06:59 06:59 06:59 Intake Total 3213.8 1743.4 180 Output Total 2448 9015 2600 Balance 765.8 -7271.6 -2420 Result Diagrams: 07/18/18 04:55 07/18/18 07:16 EKG Reviewed by me: Yes Phys Exam - Physical Examination Constitutional: NAD HEENT: PERRLA, moist MMs, sclera anicteric Neck: no JVD, supple Respiratory: no wheezing, no rales, no rhonchi Cardiovascular: RRR, no significant murmur, no rub Gastrointestinal: soft, non-tender, no distention, positive bowel sounds obesity+ Musculoskeletal: no edema, pulses present Neurological: non-focal, normal sensation Lymphatic: no nodes Psychiatric: normal affect Skin: no rash, normal turgor Dx/Plan (1) Acute metabolic encephalopathy Code(s): G93.41 - METABOLIC ENCEPHALOPATHY Status: Acute (2) Acute respiratory failure with hypercapnia Code(s): J96.02 - ACUTE RESPIRATORY FAILURE WITH HYPERCAPNIA Status: Acute (3) COPD exacerbation Code(s): J44.1 - CHRONIC OBSTRUCTIVE PULMONARY DISEASE W (ACUTE) EXACERBATION Status: Acute Comment: Improving, on vent (4) Severe sepsis Code(s): A41.9 - SEPSIS, UNSPECIFIED ORGANISM; R65.20 - SEVERE SEPSIS WITHOUT SEPTIC SHOCK Status: Acute (5) Type [address] elevation Code(s): I21.A1 - MYOCARDIAL INFARCTION TYPE 2 Status: Acute (6) UTI (urinary tract infection) Status: Acute Qualifiers: Urinary tract infection type: acute cystitis Hematuria presence: without hematuria Qualified Code(s): N30.00 - Acute cystitis without hematuria (7) Anxiety and depression Code(s): F41.9 - ANXIETY DISORDER, UNSPECIFIED; F32.9 - MAJOR DEPRESSIVE DISORDER, SINGLE EPISODE, UNSPECIFIED Status: Chronic (8) Dyslipidemia Code(s): E78.5 - HYPERLIPIDEMIA, UNSPECIFIED Status: Chronic (9) GERD (gastroesophageal reflux disease) Code(s): K21.9 - GASTRO-ESOPHAGEAL REFLUX DISEASE WITHOUT ESOPHAGITIS Status: Chronic Comment: continue Protonix (10) Hypertension Code(s): I10 - ESSENTIAL (PRIMARY) HYPERTENSION Status: Chronic Qualifiers: Hypertension type: essential hypertension Qualified Code(s): I10 - Essential (primary) hypertension (11) Macrocytic anemia Code(s): D53.9 - NUTRITIONAL ANEMIA, UNSPECIFIED Status: Chronic (12) Morbid obesity with BMI of 40.0-44.9, adult Code(s): E66.01 - MORBID (SEVERE) OBESITY DUE TO EXCESS CALORIES; Z68.41 - BODY MASS INDEX (BMI) 40.0-44.9, ADULT Status: Chronic (13) Community acquired bacterial pneumonia Code(s): J15.9 - UNSPECIFIED BACTERIAL PNEUMONIA Status: Acute (14) Intertriginous candidiasis Code(s): B37.2 - CANDIDIASIS OF SKIN AND NAIL Status: Acute (15) Hypokalemia Code(s): E87.6 - HYPOKALEMIA Status: Acute - Plan cont current plan of care, continue antibiotics, PT/OT, social service liaison * continue micafungin and zosyn * transfer to medical * start PT/OT * medication reviewed as below * symptomatic treatment. Review of Systems - Review of Systems ENT: negative: Ear Pain, Ear Discharge, Nose Pain, Nose Discharge, Nose Congestion, Mouth Pain, Mouth Swelling, Throat Pain, Throat Swelling, Other Respiratory: negative: Cough, Dry, Shortness of Breath, Hemoptysis, SOB with Excertion, Pleuritic Pain, Sputum, Wheezing Cardiovascular: negative: chest pain, palpitations, orthopnea, paroxysmal nocturnal dyspnea, edema, light headedness, other Gastrointestinal: negative: Nausea, Vomiting, Abdominal Pain, Diarrhea, Constipation, Melena, Hematochezia, Other Genitourinary: negative: Dysuria, Frequency, Incontinence, Hematuria, Retention , Other Musculoskeletal: negative: Neck Pain, Shoulder Pain, Arm Pain, Back Pain, Hand Pain, Leg Pain, Foot Pain, Other - Medications/Allergies Allergies/Adverse Reactions: Allergies Allergy/AdvReac Type Severity Reaction Status Date / Time oxycodone [From OxyContin] Allergy severe n/v Verified 06/27/17 15:00 Medications: Current Medications Acetaminophen (Tylenol) 650 mg MO Q4H PRN PRN Reason: Headache/Fever/Mild Pain (1-3) Acetaminophen (Tylenol) 650 mg PO Q6H PRN PRN Reason: Mild Pain (1-3) Artificial Tears (Tears Naturale) 2 drop EA EYE PRN PRN PRN Reason: Dry Eyes Bisacodyl (Dulcolax) 10 mg [place] DAILYPRN PRN PRN Reason: Constipation Bisacodyl (Dulcolax) 10 mg [place] DAILYPRN PRN PRN Reason: Constipation Cyanocobalamin (Vitamin B-12) 1,000 mcg PO DAILY [facility] Last Admin: 07/18/18 08:57 Dose: 1,000 mcg Enoxaparin Sodium (Lovenox) 40 mg SC 0900 [facility] Last Admin: 07/18/18 08:57 Dose: 40 mg Folic Acid (Folvite) 1 mg PO DAILY [facility] Last Admin: 07/18/18 08:56 Dose: 1 mg Guaifenesin (Robitussin Sf) 200 mg PO Q4H PRN PRN Reason: Cough Hydralazine HCl (Apresoline) 10 mg SLOW IVP Q4H PRN PRN Reason: SBP > 180 and HR < 70 Piperacillin Sod/Tazobactam (Sod 4.5 gm/ Sodium Chloride) 100 mls @ 200 mls/hr IVPB 0400,1200,2000 [facility] Last Admin: 07/18/18 04:59 Dose: 100 mls Dextrose/Water (D5w) 1,000 mls @ 50 mls/hr IV .Q20H [facility] Last Admin: 07/18/18 00:38 Dose: 1,000 mls Micafungin Sodium 100 mg/ (Sodium Chloride) 100 mls @ 100 mls/hr IVPB 1000 [facility] Last Admin: 07/18/18 08:59 Dose: 100 mls Loperamide HCl (Imodium) 2 mg PO PRN PRN PRN Reason: Diarrhea/Loose Stools Loratadine (Claritin) 10 mg PO DAILYPRN PRN PRN Reason: Sinus Symptoms Nystatin (Mycostatin Powder) 1 gm TOP BIDPRN PRN PRN Reason: Topical Irritations Last Admin: 07/14/18 20:05 Dose: 1 applic Ondansetron HCl (Zofran Odt) 4 mg PO Q6H PRN PRN Reason: Nausea/Vomiting Ondansetron HCl (Zofran) 4 mg IVP Q6H PRN PRN Reason: Nausea/Vomiting Last Admin: 07/17/18 12:55 Dose: 4 mg Pantoprazole Sodium (Protonix) 40 mg IVP DAILY [facility] Last Admin: 07/18/18 08:58 Dose: 40 mg Prednisone (Prednisone) 40 mg PO [facility] Last Admin: 07/18/18 08:56 Dose: 40 mg Promethazine HCl (Phenergan) 25 mg SLOW IVP Q6H PRN PRN Reason: Nausea Last Admin: 07/17/18 15:14 Dose: 25 mg Saccharomyces Boulardii (Florastor) 250 mg PO DAILY [facility] Last Admin: 07/18/18 08:56 Dose: 250 mg Sodium Chloride ([place] Nasal [place] 0.65%) 0 ml EA NARE QIDPRN PRN PRN Reason: Nasal Congestion Sodium Chloride (Flush - Normal Saline) 10 ml IVF Q12HR [facility] Last Admin: 07/18/18 08:58 Dose: 10 ml Sodium Chloride (Normal Saline Pf) 10 ml FS PRN PRN PRN Reason: RECONSTITUTION Last Admin: 07/14/18 10:15 Dose: 10 ml
[2018-07-18] MEDS: Acetaminophen 325 MG TAB PO PRN ×2 (11:45→21:47)
[2018-07-18] MEDS: Ondansetron PF 4 MG/2 ML Vial IVP PRN (14:53)
--- NOTE | 2018-07-18 15:38 | PRG ---
DATE OF SERVICE: 07/18/2018 SUBJECTIVE: Arlette Peralta is oriented to person and place, but is having short-term memory issues. She extubated herself apparently. Events over the weekend have been reviewed. She is in no distress. Her daughter was sitting at the bedside in the room. OBJECTIVE: VITAL SIGNS: Blood pressure 140/96, heart rate 111, respiratory rate 19, and oximetry is 94%. HEENT: She has ecchymotic eyes and a bruise on her chin, apparently was falling at home prior to admission. LUNGS: Clear. HEART: Regular rhythm. S1 and S2 are normal. ABDOMEN: Soft and nontender. EXTREMITIES: Without edema. NEUROLOGIC: Grossly nonfocal. LABORATORY DATA: White count 8.4, hemoglobin 11.3, and platelets 320. Sodium 142, potassium 3, chloride 96, bicarb 34, BUN 8, and creatinine 0.69. She had a gram-negative , staph grow out of bronchial washings. She had Pseudomonas and E. coli grow out of her urine. She had one coag-negative staph grow out of her one blood culture. The other blood culture is negative. Chest x-ray reviewed from 07/14 showed no alveolar infiltrates with atelectatic changes that were felt to be minor. IMPRESSION: 1. Status post mechanical ventilation. 2. History of inadvertent opiate overuse in the past. She still uses opiates intermittently (hydrocodone). 3. Urinary tract infection without bacteremia. 4. ? asthma versus chronic obstructive pulmonary disease. She apparently had elevated peak airway pressures with low plateau pressures, arguing for bronchospasm. She has no history of obstructive lung disease in the past. PLAN: I have explained to the daughter that she simply needs pulmonary function testing as an outpatient. She also needs a sleep study as an outpatient. She is stable to move out of the Critical Care Unit in my opinion. Critical care time is 35 minutes. Job ID: [id number] [facility]
[2018-07-19] MEDS: Ondansetron PF 4 MG/2 ML Vial IVP PRN (03:01)
[2018-07-19] MEDS: Promethazine HCl 25 MG/ML VIAL SLOW IVP PRN ×2 (04:33→11:14)
[2018-07-19] MEDS: Piperacillin/Tazobactam 4.5 GM in Sodium Chloride 0.9% 100 ML IVPB SCH ×3 (04:33→21:02)
[2018-07-19 05:22] LABS: Phosphorus 3.5 mg/dL (2.3-4.7)
[2018-07-19 05:23] LABS: Anion Gap 14 mmol/L (10-20); BUN (Urea Nitrogen) 9 mg/dL (9.8-20.1); Calc. Creatinine Clearance 139 mL/min (70-130); Calcium 8.8 mg/dL (7.8-10.44); Carbon Dioxide 32 mmol/L (23-31); Chloride 97 mmol/L (98-107); Estimated GFR-MDRD Greater than 90; Glucose 103 mg/dL (80-115); Magnesium 1.9 mg/dL (1.6-2.6); Sodium 140 mmol/L (136-145)
[2018-07-19 05:33] LABS: Potassium 2.6 mmol/L (3.5-5.1)
[2018-07-19 05:34] LABS: Band 3 % (5-11); Eosinophils 1 % (0-10); Hemoglobin 11.1 g/dL (12.0-16.0); Lymphocytes 18 % (21-51); MDiff Complete? YES; Mean Corpuscular HGB CONC 31.9 g/dL (32.0-36.0); Mean Corpuscular Hemoglobin 30.7 pg (27.0-31.0); Mean Corpuscular Volume 96.5 fL (78.0-98.0); Mean Platelet Volume 8.1 fL (7.4-10.4); Monocytes 12 % (0-10); Neutrophil 66 % (42-75); Platelet Count 328 thou/uL (130-400); RBC Distribution Width 13.6 % (11.5-14.5); Red Blood Cell (RBC) Count 3.61 mill/uL (4.20-5.40); White Blood Cell (WBC) Count 9.7 thou/uL (4.8-10.8)
--- NOTE | 2018-07-19 07:53 | RAD ---
XR Chest 1 View Portable HISTORY: Respiratory failure COMPARISON: 07/14/2018 FINDINGS: There is been interval removal of the endotracheal and nasogastric tubes. The heart size no rmal. The aorta is tortuous. No lobar consolidation, pneumothoraces, matty pulmonary edema or large effusions are seen. IMPRESSION: No radiographic evidence of acute cardiopulmonary process.
[2018-07-19] MEDS: predniSONE 20 MG TAB PO SCH (08:09)
[2018-07-19] MEDS: Nystatin Powder 15 GM BOT TOP PRN (08:30)
[2018-07-19] MEDS: Enoxaparin Sodium 40 MG/0.4 ML SYRINGE SC SCH (08:44)
[2018-07-19] MEDS: Folic Acid 1 MG TAB PO SCH (08:46)
[2018-07-19] MEDS: Saccharomyces boulardii 250 MG CAP PO SCH (08:46)
[2018-07-19] MEDS: Pantoprazole 40 MG VIAL IVP SCH (08:46)
[2018-07-19] MEDS: Cyanocobalamin (Vitamin B-12) 1,000 MCG TAB PO SCH (09:19)
[2018-07-19] MEDS: Micafungin 100 MG in Sodium Chloride 0.9% 100 ML IVPB SCH (09:20)
--- NOTE | 2018-07-19 11:39 | PRG ---
DATE OF SERVICE: 07/19/2018 SUBJECTIVE: The patient was seen and examined at the bedside, and she is cleared by mediation commissioner to be transferred to the floor. She is doing better, although she has some nausea and vomiting last night, and her potassium level is down. OBJECTIVE: VITAL SIGNS: Blood pressure is 159/102, pulse is 94, respiratory rate is 25, and O2 saturation is 95% on room air. HEENT: Head is posttraumatic. She has several bruises under her eyes and on her face secondary to that. Eyes, pupils responding to light properly. Sclerae are nonicteric. Conjunctivae are somewhat palish. Oral mucosa is moist. NECK: Supple. LUNGS: Breath sounds at both bases, slightly diminished and bilateral crackles at both bases. HEART: S1, S2 normal. No S3. No S4. ABDOMEN: Soft. Mildly tender in the midportion of epigastrium. SKIN: She has a lot of intertrigo in her folds, under her arms, and groins. EXTREMITIES: 1+ peripheral edema similar bilaterally on lower extremities. NEUROLOGICAL: She follows my commands. She moves all 4 extremities. There is no any motor or sensory deficit present. Cranial nerves intact. LABORATORY DATA: Labs showed a white count of 9.7, hemoglobin 11.1, hematocrit 34.9, and platelet count is 328,000. Sodium of 140, potassium 2.6, chloride 97, CO2 of 32, creatinine 0.65, and BUN of 9. The rest of chemistry within normal limits. Microbiology, no new findings. Chest x-ray shows no radiographic evidence of acute cardiopulmonary process. The patient was extubated, and nasogastric tube was removed. IMPRESSION: 1. Acute metabolic encephalopathy, acute, resolved. 2. Acute respiratory failure with hypercapnia, acute, resolved. 3. Chronic obstructive pulmonary disease exacerbation, status post mechanical ventilation. 4. Severe sepsis without septic shock. 5. Type [address]-elevation. 6. Urinary tract infection. 7. Anxiety and depression. 8. Uncontrolled hypertension. 9. Morbid obesity. 10. Community-acquired bacterial pneumonia. 11. Intertriginous candidiasis. 12. Hypokalemia with normal magnesium level. PLAN: Plan is to replace her potassium with 3 doses of 40 mEq of KCl p.o. today. Continue her micafungin and Zosyn. Start her on clear liquids and see whether she tolerates that. Continue observation of her heart since her potassium is low. Once we have this replaced, she should be able to go to the telemetry floor, and we are going to start her on lisinopril 20 mg p.o. to get her blood pressure under better control since her systolic blood pressure is running from 140 to 200s. We will continue her on p.r.n. blood pressure lowering agents. Job ID: [id number]
[2018-07-19 13:00] VITALS: BMI 38.8
[2018-07-19] MEDS: Acetaminophen 325 MG TAB PO PRN ×2 (14:36→21:02)
[2018-07-19] MEDS: Dextrose 5% in Water 1,000 ML IV SCH (14:51)
--- NOTE | 2018-07-19 15:41 | PRG ---
DATE OF SERVICE: 07/19/2018 SUBJECTIVE: Arlette Peralta has no complaints. She is oriented to person, place, and day. Today, she appeared she is quick to answer questions. She is much more alert today and confabulating much less than she was yesterday. OBJECTIVE: VITAL SIGNS: Blood pressure 156/83, heart rate is 100, respiratory rate is 18, and oximetry is 97%. LUNGS: Clear. HEART: Regular rhythm. S1 and S2 are normal. ABDOMEN: Soft and nontender. EXTREMITIES: Without edema. LABORATORY DATA: White count 9.7, hemoglobin 11.1, and platelets 328. Sodium 140, potassium 3.6, chloride 97, bicarb 32, BUN 9, creatinine 0.65, phosphorus 3.5, magnesium is 1.9, and calcium is 8.8. She grew Pseudomonas and E. coli out of her urine. Her blood culture 1 out of 2 is still positive for coag-negative staph. The other blood cultures negative at five days. IMPRESSION: 1. Status post mechanical ventilation, status post self-extubation with no vocal cord edema clinically. 2. History of inadvertent opiate overuse in the past. 3. Urinary tract infection without bacteremia. 4. Probable asthma present when she was intubated. PLAN: Continue current care. Transfer out of critical care unit. She will need to be followed closely as an outpatient with outpatient PFTs and an outpatient sleep study. She could probably be converted to p.o. antimicrobial therapy. Job ID: [id number]
[2018-07-19] MEDS ORDERED: Potassium Chloride 20 MEQ TAB PO SCH (16:00)
[2018-07-19] MEDS: diphenhydrAMINE 50 MG/ML VIAL IVP SCH (21:02)
[2018-07-19] MEDS ORDERED: Melatonin 3 MG TAB PO PRN (22:54)
[2018-07-20] MEDS ORDERED: Lidocaine 2% Viscous Solution 10 ML, Aluminum & Magnesium Hydroxide 30 ML SSW SCH (00:30)
[2018-07-20] MEDS: Ondansetron ODT 4 MG TAB PO PRN ×2 (01:19→06:19)
[2018-07-20] MEDS: Piperacillin/Tazobactam 4.5 GM in Sodium Chloride 0.9% 100 ML IVPB SCH (05:00)
[2018-07-20 06:01] LABS: Band 4 % (5-11); Hemoglobin 11.1 g/dL (12.0-16.0); Lymphocytes 21 % (21-51); MDiff Complete? YES; Mean Corpuscular HGB CONC 30.7 g/dL (32.0-36.0); Mean Corpuscular Hemoglobin 30.2 pg (27.0-31.0); Mean Corpuscular Volume 98.2 fL (78.0-98.0); Monocytes 15 % (0-10); Neutrophil 60 % (42-75); Platelet Count 339 thou/uL (130-400); RBC Distribution Width 13.8 % (11.5-14.5); Red Blood Cell (RBC) Count 3.69 mill/uL (4.20-5.40); White Blood Cell (WBC) Count 9.2 thou/uL (4.8-10.8)
[2018-07-20 06:10] LABS: Phosphorus 3.2 mg/dL (2.3-4.7)
[2018-07-20 06:15] LABS: Anion Gap 12 mmol/L (10-20); BUN (Urea Nitrogen) 8 mg/dL (9.8-20.1); Calc. Creatinine Clearance 141 mL/min (70-130); Carbon Dioxide 28 mmol/L (23-31); Chloride 103 mmol/L (98-107); Estimated GFR-MDRD Greater than 90; Glucose 95 mg/dL (80-115); Magnesium 1.9 mg/dL (1.6-2.6); Potassium 3.5 mmol/L (3.5-5.1); Sodium 139 mmol/L (136-145)
[2018-07-20] MEDS: Acetaminophen 325 MG TAB PO PRN (06:16)
--- NOTE | 2018-07-20 07:58 | RAD ---
ONE VIEW CHEST: HISTORY: Respiratory failure. COMPARISON: 07/19/2018. FINDINGS: Stable dorsal column stimulators terminating at approximately the T5 and T6 levels. Slight elongatio n of the aorta. Enlarged cardiac silhouette. Patchy interstitial opacities, without consolidation o r mass. No pleural effusion or pneumothorax. IMPRESSION: Patchy interstitial opacities. Correlate for edema or infiltrate. POS: OFF
[2018-07-20] MEDS: predniSONE 20 MG TAB PO SCH (08:04)
[2018-07-20] MEDS: Saccharomyces boulardii 250 MG CAP PO SCH (08:05)
[2018-07-20] MEDS: Folic Acid 1 MG TAB PO SCH (08:06)
[2018-07-20] MEDS: Cyanocobalamin (Vitamin B-12) 1,000 MCG TAB PO SCH (08:06)
[2018-07-20] MEDS: Pantoprazole 40 MG VIAL IVP SCH (08:07)
[2018-07-20] MEDS: Enoxaparin Sodium 40 MG/0.4 ML SYRINGE SC SCH (08:10)
[2018-07-20] MEDS: Promethazine HCl 25 MG/ML VIAL SLOW IVP PRN ×3 (08:20→21:22)
--- NOTE | 2018-07-20 11:17 | PDOC.PN ---
- Subjective Encounter Start Date: 07/20/18 Encounter Start Time: 09:15 -: old records requested/rev Patient seen and examined. No new complaints. No overnight events pt is very weak - Objective Resuscitation Status - Order Detail: 07/13/18 21:39 Resuscitation Status Routine Resuscitation Status: FULL: Full Resuscitation MAR Reviewed: Yes Vital Signs & Weight: Vital Signs (12 hours) Temp Pulse Resp BP Pulse Ox 07/20/18 08:00 99 07/20/18 07:58 99.7 F H 82 20 163/95 H 99 07/20/18 04:11 98.8 F 76 18 151/91 H 100 07/20/18 00:34 98.5 F 73 18 159/89 H 100 Weight Admit Weight 227 lb 15.327 oz Weight 219 lb 6.4 oz Most Recent Monitor Data Heart Rate from ECG 100 NIBP 135/82 NIBP BP-Mean 99 Respiration from ECG 21 SpO2 97 I&O: 07/19/18 07/20/18 07/21/18 06:59 06:59 06:59 Intake Total 1889 1620 Output Total 0161 1955 Balance -2996 -335 Result Diagrams: 07/20/18 05:12 07/20/18 05:12 Phys Exam - Physical Examination Constitutional: NAD HEENT: PERRLA, moist MMs, sclera anicteric Neck: no JVD, supple Respiratory: no wheezing, no rhonchi few basal rales Cardiovascular: RRR, no significant murmur, no rub Gastrointestinal: soft, non-tender, no distention, positive bowel sounds obesity+ Musculoskeletal: no edema, pulses present Neurological: non-focal, normal sensation Lymphatic: no nodes Psychiatric: normal affect Skin: normal turgor Deviation from normal: multiple skin lesion noted Dx/Plan (1) Acute metabolic encephalopathy Code(s): G93.41 - METABOLIC ENCEPHALOPATHY Status: Resolved (2) COPD exacerbation Code(s): J44.1 - CHRONIC OBSTRUCTIVE PULMONARY DISEASE W (ACUTE) EXACERBATION Status: Resolved Comment: Improving (3) Severe sepsis Code(s): A41.9 - SEPSIS, UNSPECIFIED ORGANISM; R65.20 - SEVERE SEPSIS WITHOUT SEPTIC SHOCK Status: Acute (4) Type [address] elevation Code(s): I21.A1 - MYOCARDIAL INFARCTION TYPE 2 Status: Acute (5) Anxiety and depression Code(s): F41.9 - ANXIETY DISORDER, UNSPECIFIED; F32.9 - MAJOR DEPRESSIVE DISORDER, SINGLE EPISODE, UNSPECIFIED Status: Chronic (6) Dyslipidemia Code(s): E78.5 - HYPERLIPIDEMIA, UNSPECIFIED Status: Chronic (7) GERD (gastroesophageal reflux disease) Code(s): K21.9 - GASTRO-ESOPHAGEAL REFLUX DISEASE WITHOUT ESOPHAGITIS Status: Chronic Comment: continue Protonix (8) Hypertension Code(s): I10 - ESSENTIAL (PRIMARY) HYPERTENSION Status: Chronic Qualifiers: Hypertension type: essential hypertension Qualified Code(s): I10 - Essential (primary) hypertension (9) Macrocytic anemia Code(s): D53.9 - NUTRITIONAL ANEMIA, UNSPECIFIED Status: Chronic (10) Morbid obesity with BMI of 40.0-44.9, adult Code(s): E66.01 - MORBID (SEVERE) OBESITY DUE TO EXCESS CALORIES; Z68.41 - BODY MASS INDEX (BMI) 40.0-44.9, ADULT Status: Chronic (11) Community acquired bacterial pneumonia Code(s): J15.9 - UNSPECIFIED BACTERIAL PNEUMONIA Status: Acute (12) Intertriginous candidiasis Code(s): B37.2 - CANDIDIASIS OF SKIN AND NAIL Status: Acute (13) Hypokalemia Code(s): E87.6 - HYPOKALEMIA Status: Acute (14) Acute on chronic respiratory failure with hypoxia and hypercapnia Code(s): J96.21 - ACUTE AND CHRONIC RESPIRATORY FAILURE WITH HYPOXIA; J96.22 - ACUTE AND CHRONIC RESPIRATORY FAILURE WITH HYPERCAPNIA Status: Acute Comment : secondary to COPD exacerbation, present on admission (15) UTI (urinary tract infection) Status: Acute Comment: Pseudomonas and E. coli UTI - Plan cont current plan of care, plan discussed w/ family, PT/OT, health and social care teacher * today will change to PO levaquin based on culture result * I spoke with daughter and updated plan * pt and daughter agreed with SNU placement * start PT/OT and casey saw operator for placement * medication reviewed as below * symptomatic treatment. * basil dixon * BASIL IVF * outpt sleep study Review of Systems - Review of Systems Constitutional: weakness. negative: fever, chills, sweats, malaise, other Respiratory: negative: Cough, Dry, Shortness of Breath, Hemoptysis, SOB with Excertion, Pleuritic Pain, Sputum, Wheezing Cardiovascular: negative: chest pain, palpitations, orthopnea, paroxysmal nocturnal dyspnea, edema, light headedness, other Gastrointestinal: negative: Nausea, Vomiting, Abdominal Pain, Diarrhea, Constipation, Melena, Hematochezia, Other Genitourinary: negative: Dysuria, Frequency, Incontinence, Hematuria, Retention , Other Musculoskeletal: negative: Neck Pain, Shoulder Pain, Arm Pain, Back Pain, Hand Pain, Leg Pain, Foot Pain, Other Skin: negative: Rash, Lesions, Eulalio, Bruising, Other - Medications/Allergies Allergies/Adverse Reactions: Allergies Allergy/AdvReac Type Severity Reaction Status Date / Time oxycodone [From OxyContin] Allergy severe n/v Verified 06/27/17 15:00 Medications: Current Medications Acetaminophen (Tylenol) 650 mg NE Q4H PRN PRN Reason: Headache/Fever/Mild Pain (1-3) Acetaminophen (Tylenol) 650 mg PO Q6H PRN PRN Reason: Mild Pain (1-3) Last Admin: 07/20/18 06:16 Dose: 650 mg Artificial Tears (Tears Naturale) 2 drop EA EYE PRN PRN PRN Reason: Dry Eyes Bisacodyl (Dulcolax) 10 mg NE DAILYPRN PRN PRN Reason: Constipation Bisacodyl (Dulcolax) 10 mg NE DAILYPRN PRN PRN Reason: Constipation Cyanocobalamin (Vitamin B-12) 1,000 mcg PO DAILY [facility] Last Admin: 07/20/18 08:06 Dose: 1,000 mcg Diphenhydramine HCl (Benadryl) 25 mg IVP HS [facility] Last Admin: 07/19/18 21:02 Dose: 25 mg Enoxaparin Sodium (Lovenox) 40 mg SC 0900 [facility] Last Admin: 07/20/18 08:10 Dose: 40 mg Folic Acid (Folvite) 1 mg PO DAILY [facility] Last Admin: 07/20/18 08:06 Dose: 1 mg Guaifenesin (Robitussin Sf) 200 mg PO Q4H PRN PRN Reason: Cough Hydralazine HCl (Apresoline) 10 mg SLOW IVP Q4H PRN PRN Reason: SBP > 180 and HR < 70 Last Admin: 07/19/18 11:11 Dose: 10 mg Levofloxacin (Levaquin) 750 mg PO 0900 [facility] Last Admin: 07/20/18 08:47 Dose: 750 mg Loperamide HCl (Imodium) 2 mg PO PRN PRN PRN Reason: Diarrhea/Loose Stools Last Admin: 07/19/18 08:46 Dose: 2 mg Loratadine (Claritin) 10 mg PO DAILYPRN PRN PRN Reason: Sinus Symptoms Melatonin (Melatonin) 3 mg PO HS PRN PRN Reason: Insomnia Last Admin: 07/19/18 22:59 Dose: 3 mg Nystatin (Mycostatin Powder) 1 gm TOP BIDPRN PRN PRN Reason: Topical Irritations Last Admin: 07/19/18 08:30 Dose: 1 applic Ondansetron HCl (Zofran Odt) 4 mg PO Q6H PRN PRN Reason: Nausea/Vomiting Last Admin: 07/20/18 06:19 Dose: 4 mg Ondansetron HCl (Zofran) 4 mg IVP Q6H PRN PRN Reason: Nausea/Vomiting Last Admin: 07/19/18 03:01 Dose: 4 mg Pantoprazole Sodium (Protonix) 40 mg IVP DAILY [facility] Last Admin: 07/20/18 08:07 Dose: 40 mg Prednisone (Prednisone) 40 mg PO [facility] Last Admin: 07/20/18 08:04 Dose: 40 mg Promethazine HCl (Phenergan) 25 mg SLOW IVP Q6H PRN PRN Reason: Nausea Last Admin: 07/20/18 08:20 Dose: 25 mg Saccharomyces Boulardii (Florastor) 250 mg PO DAILY [facility] Last Admin: 07/20/18 08:05 Dose: 250 mg Sodium Chloride ([place] Nasal Ranger 0.65%) 0 ml EA NARE QIDPRN PRN PRN Reason: Nasal Congestion Sodium Chloride (Flush - Normal Saline) 10 ml IVF Q12HR [facility] Last Admin: 07/20/18 08:14 Dose: 10 ml Sodium Chloride (Normal Saline Pf) 10 ml FS PRN PRN PRN Reason: RECONSTITUTION Last Admin: 07/14/18 10:15 Dose: 10 ml
[2018-07-20] MEDS ORDERED: ALPRAZolam 0.25 MG TAB PO SCH (15:00)
[2018-07-20] MEDS ORDERED: ALPRAZolam 0.25 MG TAB PO PRN (15:29)
[2018-07-20] MEDS ORDERED: Amlodipine 10 MG TAB PO SCH (17:00)
--- NOTE | 2018-07-20 18:28 | PRG ---
DATE OF SERVICE: 07/20/2018 SUBJECTIVE: Arlette Peralta was evaluated. Her sister was in the room. Her sister is retired ICU nurse here. We had long discussion about her admission. OBJECTIVE: VITAL SIGNS: Heart rate is 80, blood pressure is 144/89, earlier 162/107 I suspect the higher blood pressure is related to cuff placement given that she is significantly overweight. Oximetry is 94% on 2 L. LUNGS: Clear. HEART: Regular rhythm. ABDOMEN: Soft. She has no recollection of the events surrounding her admission. We discussed the past admission, where she inadvertently overdosed and I have explained that she probably inadvertently overdosed again this admission. Her sister who is a nurse believes this is possible. Her /2 blood cultures were positive. I suspect that was a contaminant. The bronchial washing organisms were not definitely pathogens in my opinion. She did have an incidental finding of two organisms isolated from her urine. Her sister confirmed that rAlette has a pill organizer for morning and evening pills, and some days she will go over there and the morning pills will still be in place, but the evening pills will be gone. We discussed opioid use and how that this can lead to confusion in making bad choices and accidental overdoses. I think there is a high likelihood that had a large role in this admission given her overdose several years back. She is mechanically ventilated that admission and I was involved in her care and as time unfolded, it became clear that is what the problem was. This admission, she was also found unresponsive after sleeping for many hours in a recliner. We never identified any things suggestive of meningitis or encephalitis. I do not believe she was truly septic. I also do not believe that she clearly had a pneumonia. She certainly did not have significant enough abnormality on her chest x-ray to lead to mechanical ventilation and intubation given that she has no history of lung disease. She needs to be referred to a skilled unit for further rehabilitative care. I will see her as needed in the future. Job ID: [id number] [facility]
[2018-07-20] MEDS: diphenhydrAMINE 50 MG/ML VIAL IVP SCH (21:30)
[2018-07-21 07:13] LABS: Hemoglobin 11.8 g/dL (12.0-16.0); Mean Corpuscular HGB CONC 32.7 g/dL (32.0-36.0); Mean Corpuscular Hemoglobin 31.5 pg (27.0-31.0); Mean Corpuscular Volume 96.5 fL (78.0-98.0); Mean Platelet Volume 7.4 fL (7.4-10.4); Platelet Count 366 thou/uL (130-400); RBC Distribution Width 13.4 % (11.5-14.5); Red Blood Cell (RBC) Count 3.74 mill/uL (4.20-5.40)
[2018-07-21 07:25] LABS: Phosphorus 3.1 mg/dL (2.3-4.7)
[2018-07-21 07:28] LABS: Anion Gap 16 mmol/L (10-20); BUN (Urea Nitrogen) 11 mg/dL (9.8-20.1); Calc. Creatinine Clearance 156 mL/min (70-130); Carbon Dioxide 26 mmol/L (23-31); Chloride 101 mmol/L (98-107); Estimated GFR-MDRD Greater than 90; Glucose 82 mg/dL (80-115); Magnesium 1.8 mg/dL (1.6-2.6); Sodium 140 mmol/L (136-145)
--- NOTE | 2018-07-21 08:10 | RAD ---
Exam: Chest one view HISTORY:Pneumonia Comparison: Previous day FINDINGS: Lungs: Mild patchy right basilar density Cardiac silhouette:Stable prominence Pulmonary vessels: Mild engorgement Pleural Spaces: Pleural-based density of the inferior right chest is seen Pneumothorax: None Osseous abnormalities: None of acuity. IMPRESSION: Mild right pleural effusion with adjacent atelectasis. CHF.
[2018-07-21] MEDS: predniSONE 20 MG TAB PO SCH (08:30)
[2018-07-21] MEDS: Cyanocobalamin (Vitamin B-12) 1,000 MCG TAB PO SCH (08:31)
[2018-07-21] MEDS: Saccharomyces boulardii 250 MG CAP PO SCH (08:32)
[2018-07-21] MEDS: Folic Acid 1 MG TAB PO SCH (08:33)
[2018-07-21] MEDS: Sodium Chloride 0.9% (PF) 10 ML VIAL FS PRN (08:34)
[2018-07-21] MEDS: Pantoprazole 40 MG VIAL IVP SCH (08:34)
[2018-07-21] MEDS: Enoxaparin Sodium 40 MG/0.4 ML SYRINGE SC SCH (08:34)
[2018-07-21] MEDS: ALPRAZolam 0.25 MG TAB PO PRN ×2 (08:35→14:30)
[2018-07-21 09:00] LABS: Band 4 % (5-11); Lymphocytes 13 % (21-51); MDiff Complete? YES; Monocytes 7 % (0-10); Neutrophil 76 % (42-75); RBC Morphology Normal
[2018-07-21] MEDS ORDERED: Amlodipine 10 MG TAB PO SCH (09:00)
--- NOTE | 2018-07-21 13:40 | PDOC.EVN ---
Event Note - Event Note Event Note: DC SUMMARY #[id number]
[2018-07-21] MEDS: Acetaminophen 325 MG TAB PO PRN (14:31)
[2018-07-21 15:26] VITALS: TEMP 99
[2018-07-21] MEDS ORDERED: Metoprolol Tartrate 50 MG TAB PO SCH (15:30)
[2018-07-21 17:39] VITALS: BP 151/90
--- NOTE | 2018-07-22 03:58 | DIS ---
DATE OF ADMISSION: 07/13/2018 DATE OF DISCHARGE: 07/21/2018 ADMITTING DIAGNOSES: Acute kidney injury, diabetes mellitus, respiratory hypoxic failure, hypertension as well as congestive heart failure. DISCHARGE DIAGNOSES: Acute kidney injury, resolved; diabetes mellitus type 2, stable; essential hypertension, stable; acute respiratory failure, stable; heart failure, stable. HOSPITAL COURSE: This is a 63-year-old female, who presented to the hospital with severe significant shortness of breath and acute kidney injury, was admitted to Internal Medicine Team, was also followed very closely by Pulmonary team. The patient was started on anxiety medication and blood pressure medication, as well as steroids for her respiratory failure. At the point in time of discharge, after about a week or so doing this, the patient's condition was significantly more stable. She did not have any more associated complaints or symptoms. No nausea, vomiting, diarrhea, constipation, chest pain, fevers, chills, or shortness of breath. The patient's creatinine at that point in time of admission was 0.82 and at discharge was 0.58. The patient's complaints were resolved. Stated that she was ready to go to longterm facility for further management and care. The patient was advised to follow up with PCP after one week post placement in longterm facility. The patient was advised to resume her home medications. She was already on steroids. The patient at that point in time of discharge, she did not need any further medications for antibiotics or anything along those lines. DISPOSITION: jail facility. MEDICATIONS: See MAR. ACTIVITY: As tolerated with assistance as needed. DIET: Low-fat, low-calorie, high-fiber diet. CONDITION: Stable. PROGNOSIS: Guarded. Case and plan discussed with the patient at length. She understood and agreed to this plan. Job ID: [id number]
== END 2018-07-21 17:42 | disposition home or self-care (01) | DRG 871 ==
LOC: ERS 18:49 → CCU 21:35 → T4-A 07-19 11:24
PROVIDERS: ADMIT Hospitalist; ATTEND Hospitalist
PROC: 0BH17EZ Insertion of Endotracheal Airway into Trachea, Via Natural or Artificial Opening (ICD-10-PCS; principal; 2018-07-13)
PROC: 5A1945Z Respiratory Ventilation, 24-96 Consecutive Hours (ICD-10-PCS; 2018-07-13)
DX: A41.9 Sepsis, unspecified organism (principal); J18.1 Lobar pneumonia, unspecified organism; G93.41 Metabolic encephalopathy; I21.A1 Myocardial infarction type 2; J96.21 Acute and chronic respiratory failure with hypoxia; J96.22 Acute and chronic respiratory failure with hypercapnia; E87.0 Hyperosmolality and hypernatremia; N39.0 Urinary tract infection, site not specified; J44.1 Chronic obstructive pulmonary disease with (acute) exacerbation; J44.0 Chronic obstructive pulmonary disease with (acute) lower respiratory infection; G89.29 Other chronic pain; M54.9 Dorsalgia, unspecified; I10 Essential (primary) hypertension; E78.5 Hyperlipidemia, unspecified; D53.9 Nutritional anemia, unspecified; R73.9 Hyperglycemia, unspecified; B37.2 Candidiasis of skin and nail; R65.20 Severe sepsis without septic shock; K21.9 Gastro-esophageal reflux disease without esophagitis; E66.01 Morbid (severe) obesity due to excess calories; F41.9 Anxiety disorder, unspecified; F32.9 Major depressive disorder, single episode, unspecified; E87.6 Hypokalemia; B96.20 Unspecified Escherichia coli [E. coli] as the cause of diseases classified elsewhere; B96.5 Pseudomonas (aeruginosa) (mallei) (pseudomallei) as the cause of diseases classified elsewhere; Z79.899 Other long term (current) drug therapy; Z87.440 Personal history of urinary (tract) infections; Z88.5 Allergy status to narcotic agent; Z79.82 Long term (current) use of aspirin; Z87.891 Personal history of nicotine dependence; Z90.710 Acquired absence of both cervix and uterus; Z68.38 Body mass index [BMI] 38.0-38.9, adult
CPT/HCPCS: 31500; 36415; 70450; 71045; 72125; 80048; 80053; 80202; 80306; 80307; 81003; 81015; 82550; 82553; 82805; 83605; 83690; 83735; 84100; 84484; 85025; 87040; 87070; 87077; 87086; 87149; 87186; 87205; 89220; 93005; 93010; 94002; 94003; C9113; J0360; J1200; J1650; J1940; J1956; J2060; J2248; J2405; J2543; J2550; J2704; J3010; J3370; J3475; J3480; J3490; J7050; J7512; Q0162

== ENCOUNTER 2021-09-25 11:40 | Inpatient (IN) | payer MEDICARE ==
[~2021-09-25 11:40] MED LIST: Iopamidol-370 76% 500 ML 1 ML ONE
[2021-09-25 12:33] LABS: Actual Bicarbonate (HCO3v) 30 mEq/L (22-28); Analyzer IN Cardio ER; Base Excess 6.6 mEq/L (-2.0 to +3.0); Calcium, Ionized (venous) 0.92 mmol/L (1.16-1.32); Chloride (VBG) 99 mmol/L (98-106); Hemoglobin (Hb) 12.8 g/dL (11.7-16.1); Potassium (VBG) 4.16 mmol/L (3.70-5.30); Sodium 138.6 mmol/L (133-146); pH (venous) 7.52 (7.32-7.43)
[2021-09-25 12:36] LABS: #Eosinphils 0.2 thou/uL (0.0-0.7); #Lymphocytes 1.2 thou/uL (1.20-3.40); #Monocytes 0.4 thou/uL (0.11-0.59); #Neutrophils 3.3 thou/uL (1.40-6.50); %Basophils 0.2 % (0.0-1.0); %Eosinophils 3.1 % (0.0-10.0); %Lymphocytes 24.1 % (21.0-51.0); %Monocytes 8.5 % (0.0-10.0); %Neutrophils 64.1 % (42.0-75.0); Hemoglobin 11.9 g/dL (12.0-16.0); Mean Corpuscular Hemoglobin 28.9 pg (27.0-31.0); Mean Corpuscular Volume 93.1 fL (78.0-98.0); Mean Platelet Volume 7.3 fL (7.4-10.4); Platelet Count 218 thou/uL (130-400); RBC Distribution Width 13.1 % (11.5-14.5); Red Blood Cell (RBC) Count 4.11 mill/uL (4.20-5.40); White Blood Cell (WBC) Count 5.1 thou/uL (4.8-10.8)
[2021-09-25 12:56] LABS: ALT (SGPT) 10 U/L (8-55); AST (SGOT) 17 U/L (5-34); Albumin 3.4 g/dL (3.4-4.8); Alkaline Phosphatase 69 U/L (40-110); Anion Gap 17 mmol/L (10-20); BUN (Urea Nitrogen) 9 mg/dL (9.8-20.1); Bilirubin, Total 0.3 mg/dL (0.2-1.2); Calc. Creatinine Clearance 0 mL/min (70-130); Calcium 9.1 mg/dL (7.8-10.44); Carbon Dioxide 34 mmol/L (23-31); Chloride 97 mmol/L (98-107); Estimated GFR 99; Globulin 3.8 g/dL (2.4-3.5); Glucose 74 mg/dL (80-115); Potassium 3.9 mmol/L (3.5-5.1); Protein, Total 7.2 g/dL (5.8-8.1); Sodium 144 mmol/L (136-145)
[2021-09-25] MEDS ORDERED: Ondansetron PF 4 MG/2 ML Vial ONE (13:44)
[2021-09-25 13:59] LABS: SARS-CoV-2 NAA Rapid Test Not Detected (NotDetected)
[2021-09-25 16:40] LABS: Bacteria/HPF 4+ HPF (None Seen); Bilirubin Negative (Negative); Blood, Urine 3+ (Negative); Clarity Turbid (Clear); Glucose, Urine (Dipstick) Normal (Negative); Ketone, Urine Trace mg/dL (Negative); Leukocyte 500 Leu/uL (Negative); Nitrite 1+ (Negative); Protein, Urine (Dipstick) 10 mg/dL (Neg-Trace); Specific Gravity, Urine 1.005 (1.002-1.036); Squamous Epithelial 0-3 HPF (0-3); Urobilinogen Normal mg/dL (Less than 2); WBC/HPF Greater than 50 HPF (0-3)
[2021-09-25] MEDS ORDERED: cefTRIAXone\\ROCEPHIN 1 GM VIAL ONE (17:16)
[2021-09-25 20:55] VITALS: BMI 38.6
[2021-09-25] MEDS ORDERED: ALPRAZolam 0.5 MG TAB PO SCH (21:00)
[2021-09-25] MEDS ORDERED: Polyethylene Glycol 3350 17 GM Packet PO PRN (21:26)
[2021-09-25] MEDS: Heparin 5,000 UNITS/ML VIAL SC SCH (21:44)
[2021-09-25] MEDS: Acetaminophen 325 MG TAB PO PRN (21:44)
[2021-09-25] MEDS ORDERED: ALPRAZolam 1 MG TAB PO SCH (22:00)
[2021-09-25] MEDS: Albuterol Sulfate 2.5 mg/3 ml Neb NEB SCH (23:04)
[2021-09-26 03:58] LABS: #Lymphocytes 0.5 thou/uL (1.20-3.40); #Monocytes 0.1 thou/uL (0.11-0.59); #Neutrophils 3.9 thou/uL (1.40-6.50); %Eosinophils 0.8 % (0.0-10.0); %Monocytes 2.3 % (0.0-10.0); %Neutrophils 85.8 % (42.0-75.0); Mean Corpuscular HGB CONC 29.7 g/dL (32.0-36.0); Mean Corpuscular Hemoglobin 27.7 pg (27.0-31.0); Mean Corpuscular Volume 93.3 fL (78.0-98.0); Mean Platelet Volume 7.2 fL (7.4-10.4); Platelet Count 228 thou/uL (130-400); RBC Distribution Width 13.2 % (11.5-14.5); Red Blood Cell (RBC) Count 3.59 mill/uL (4.20-5.40); White Blood Cell (WBC) Count 4.5 thou/uL (4.8-10.8)
[2021-09-26 04:13] LABS: Anion Gap 13 mmol/L (10-20); BUN (Urea Nitrogen) 12 mg/dL (9.8-20.1); Calc. Creatinine Clearance 144 mL/min (70-130); Calcium 8.4 mg/dL (7.8-10.44); Carbon Dioxide 35 mmol/L (23-31); Chloride 99 mmol/L (98-107); Estimated GFR 100; Glucose 106 mg/dL (80-115); Potassium 3.8 mmol/L (3.5-5.1); Sodium 143 mmol/L (136-145)
[2021-09-26] MEDS: Albuterol Sulfate 2.5 mg/3 ml Neb NEB SCH ×3 (07:10→21:44)
[2021-09-26] MEDS: ALPRAZolam 1 MG TAB PO SCH ×2 (08:43→21:48)
[2021-09-26] MEDS: Aspirin 325 mg Enteric Coated Tablet PO SCH (08:43)
[2021-09-26] MEDS: Heparin 5,000 UNITS/ML VIAL SC SCH ×2 (08:43→21:48)
[2021-09-26] MEDS: Cyanocobalamin (Vitamin B-12) 1,000 MCG TAB PO SCH (08:43)
[2021-09-26] MEDS: Metoprolol Tartrate 25 MG TAB PO SCH ×2 (08:44→21:48)
[2021-09-26] MEDS: Saccharomyces boulardii 250 MG CAP PO SCH (08:44)
[2021-09-26] MEDS ORDERED: ALPRAZolam 1 MG TAB PO SCH (09:00)
[2021-09-26] MEDS ORDERED: Aluminum & Magnesium Hydroxide 60 ML, diphenhydrAMINE 150 MG, Lidocaine 2% Viscous Solu... SSW PRN (10:14)
[2021-09-26] MEDS: Ketorolac Tromethamine 30 MG/ML VIAL IVP SCH ×3 (13:10→23:38)
[2021-09-26] MEDS ORDERED: cefTRIAXone\\ROCEPHIN 1 GM in Sodium Chloride 0.9% 100 ML IVPB SCH (17:00)
[2021-09-26] MEDS: Atorvastatin Calcium 20 MG TAB PO SCH (21:48)
[2021-09-27 04:43] LABS: #Eosinphils 0.2 thou/uL (0.0-0.7); #Lymphocytes 1.4 thou/uL (1.20-3.40); #Monocytes 0.6 thou/uL (0.11-0.59); #Neutrophils 5.1 thou/uL (1.40-6.50); %Basophils 0.1 % (0.0-1.0); %Eosinophils 2.6 % (0.0-10.0); %Lymphocytes 19.1 % (21.0-51.0); %Neutrophils 70.2 % (42.0-75.0); Hemoglobin 9.8 g/dL (12.0-16.0); Mean Corpuscular HGB CONC 30.1 g/dL (32.0-36.0); Mean Corpuscular Hemoglobin 28.1 pg (27.0-31.0); Mean Corpuscular Volume 93.2 fL (78.0-98.0); Mean Platelet Volume 7.2 fL (7.4-10.4); Platelet Count 254 thou/uL (130-400); RBC Distribution Width 13.3 % (11.5-14.5); White Blood Cell (WBC) Count 7.2 thou/uL (4.8-10.8)
[2021-09-27 05:00] LABS: BUN (Urea Nitrogen) 17 mg/dL (9.8-20.1); Calc. Creatinine Clearance 129 mL/min (70-130); Calcium 8.8 mg/dL (7.8-10.44); Estimated GFR 97; Glucose 80 mg/dL (80-115)
[2021-09-27 05:10] LABS: Anion Gap 9 mmol/L (10-20); Carbon Dioxide 40 mmol/L (23-31); Chloride 99 mmol/L (98-107); Potassium 3.4 mmol/L (3.5-5.1); Sodium 145 mmol/L (136-145)
[2021-09-27] MEDS: Ketorolac Tromethamine 30 MG/ML VIAL IVP SCH ×3 (05:29→17:16)
[2021-09-27] MEDS: Albuterol Sulfate 2.5 mg/3 ml Neb NEB SCH ×3 (07:19→22:26)
[2021-09-27] MEDS: ALPRAZolam 1 MG TAB PO SCH ×2 (09:49→20:21)
[2021-09-27] MEDS: Cyanocobalamin (Vitamin B-12) 1,000 MCG TAB PO SCH (09:49)
[2021-09-27] MEDS: Saccharomyces boulardii 250 MG CAP PO SCH (09:49)
[2021-09-27] MEDS: Aspirin 325 mg Enteric Coated Tablet PO SCH (09:49)
[2021-09-27] MEDS: Heparin 5,000 UNITS/ML VIAL SC SCH ×2 (09:49→20:21)
[2021-09-27] MEDS: Metoprolol Tartrate 25 MG TAB PO SCH ×2 (09:49→20:21)
[2021-09-27] MEDS ORDERED: Ondansetron PF 4 MG/2 ML Vial IVP PRN (10:25)
[2021-09-27] MEDS: Atorvastatin Calcium 20 MG TAB PO SCH (20:21)
[2021-09-27] MEDS: Acetaminophen 325 MG TAB PO PRN (20:21)
[2021-09-28] MEDS: Ketorolac Tromethamine 30 MG/ML VIAL IVP SCH ×3 (00:37→13:05)
[2021-09-28] MEDS ORDERED: Hydrocortisone 1% Cream 30 GM TUBE TOP PRN (04:25)
[2021-09-28 05:05] LABS: #Eosinphils 0.2 thou/uL (0.0-0.7); #Lymphocytes 1.4 thou/uL (1.20-3.40); #Monocytes 0.7 thou/uL (0.11-0.59); #Neutrophils 3.4 thou/uL (1.40-6.50); %Basophils 0.2 % (0.0-1.0); %Eosinophils 3.9 % (0.0-10.0); %Lymphocytes 24.9 % (21.0-51.0); %Monocytes 11.9 % (0.0-10.0); %Neutrophils 59.1 % (42.0-75.0); Hemoglobin 10.9 g/dL (12.0-16.0); Mean Corpuscular HGB CONC 31.5 g/dL (32.0-36.0); Mean Corpuscular Hemoglobin 29.1 pg (27.0-31.0); Mean Corpuscular Volume 92.3 fL (78.0-98.0); Mean Platelet Volume 7.2 fL (7.4-10.4); Platelet Count 224 thou/uL (130-400); RBC Distribution Width 13.6 % (11.5-14.5); Red Blood Cell (RBC) Count 3.75 mill/uL (4.20-5.40); White Blood Cell (WBC) Count 5.7 thou/uL (4.8-10.8)
[2021-09-28 05:21] LABS: Anion Gap 14 mmol/L (10-20); BUN (Urea Nitrogen) 16 mg/dL (9.8-20.1); Calc. Creatinine Clearance 125 mL/min (70-130); Calcium 8.9 mg/dL (7.8-10.44); Carbon Dioxide 34 mmol/L (23-31); Chloride 100 mmol/L (98-107); Estimated GFR 96; Glucose 80 mg/dL (80-115); Potassium 3.6 mmol/L (3.5-5.1); Sodium 144 mmol/L (136-145)
[2021-09-28] MEDS: Albuterol Sulfate 2.5 mg/3 ml Neb NEB SCH (06:56)
[2021-09-28] MEDS: Metoprolol Tartrate 25 MG TAB PO SCH (08:16)
[2021-09-28] MEDS: Heparin 5,000 UNITS/ML VIAL SC SCH (08:16)
[2021-09-28] MEDS: ALPRAZolam 1 MG TAB PO SCH (08:16)
[2021-09-28] MEDS: Aspirin 325 mg Enteric Coated Tablet PO SCH (08:16)
[2021-09-28] MEDS: Saccharomyces boulardii 250 MG CAP PO SCH (08:16)
[2021-09-28] MEDS: Cyanocobalamin (Vitamin B-12) 1,000 MCG TAB PO SCH (08:16)
[2021-09-28] MEDS ORDERED: Betamethasone 0.1% Cream 45 GM TUBE TOP SCH (09:00)
[2021-09-28 11:57] VITALS: BP 128/97; TEMP 97.8
== END 2021-09-28 15:06 | disposition home or self-care (01) | DRG 189 ==
LOC: ERS 11:40 → 2NO 17:20 → OBSVTOIN 09-27 15:21
PROVIDERS: ADMIT Hospitalist; ATTEND Hospitalist
DX: J96.20 Acute and chronic respiratory failure, unspecified whether with hypoxia or hypercapnia (principal); G93.41 Metabolic encephalopathy; N10 Acute pyelonephritis; J44.1 Chronic obstructive pulmonary disease with (acute) exacerbation; Z20.822 Contact with and (suspected) exposure to COVID-19; B96.5 Pseudomonas (aeruginosa) (mallei) (pseudomallei) as the cause of diseases classified elsewhere; F41.9 Anxiety disorder, unspecified; F32.9 Major depressive disorder, single episode, unspecified; K21.9 Gastro-esophageal reflux disease without esophagitis; L40.9 Psoriasis, unspecified; I10 Essential (primary) hypertension; R13.12 Dysphagia, oropharyngeal phase; E66.01 Morbid (severe) obesity due to excess calories; Z99.81 Dependence on supplemental oxygen; Z88.5 Allergy status to narcotic agent; Z79.899 Other long term (current) drug therapy; Z79.82 Long term (current) use of aspirin; Z87.891 Personal history of nicotine dependence; Z68.39 Body mass index [BMI] 39.0-39.9, adult; Z80.0 Family history of malignant neoplasm of digestive organs
CPT/HCPCS: 36415; 71045; 71275; 80048; 80053; 81003; 81015; 82805; 83605; 83880; 84484; 85025; 87040; 87077; 87086; 87186; 87804; 93005; 94640; 96375; 96376; G0378; J0696; J1644; J1885; J1956; J2405; J7611; Q9967; U0002

== ENCOUNTER 2022-02-25 22:36 | Inpatient (IN) | payer MEDICARE ==
[2022-02-26 00:30] VITALS: BMI 35.0
[2022-02-26] MEDS ORDERED: Ondansetron PF 4 MG/2 ML Vial IVP PRN (01:12)
[2022-02-26] MEDS ORDERED: Ondansetron ODT 4 MG TAB PO PRN (01:12)
[2022-02-26] MEDS ORDERED: Ipratropium/Albuterol 3 ML NEB NEB PRN (01:14)
[2022-02-26] MEDS ORDERED: Hydrocortisone 1% Cream 30 GM TUBE TOP PRN (01:57)
[2022-02-26] MEDS ORDERED: Furosemide 20 MG/2 ML VIAL SLOW IVP SCH (02:00)
[2022-02-26] MEDS: Promethazine HCl 25 MG in Sodium Chloride 0.9% 50 ML IVPB PRN ×3 (02:39→18:03)
[2022-02-26 03:19] LABS: Bilirubin Small (Negative); Blood, Urine Moderate (Negative); Glucose, Urine (Dipstick) Negative (Negative); Ketone, Urine 40 mg/dL (Negative); Leukocyte Moderate (Negative); Nitrite Negative (Negative); Protein, Urine (Dipstick) 100 mg/dL (Neg-Trace); pH, Urine 7.5 (5.0-9.0)
[2022-02-26 03:25] LABS: Clarity Hazy (Clear); RBC/HPF 0-3 HPF (0-3); WBC/HPF Greater than 50 HPF (0-3)
[2022-02-26] MEDS ORDERED: Ondansetron PF 4 MG/2 ML Vial IVP SCH (03:45)
[2022-02-26 03:46] LABS: #Lymphocytes 0.5 thou/uL (1.20-3.40); #Monocytes 0.1 thou/uL (0.11-0.59); #Neutrophils 3.6 thou/uL (1.40-6.50); %Eosinophils 0.5 % (0.0-10.0); %Lymphocytes 11.3 % (21.0-51.0); %Monocytes 1.9 % (0.0-10.0); %Neutrophils 86.3 % (42.0-75.0); Hemoglobin 11.9 g/dL (12.0-16.0); Mean Corpuscular Hemoglobin 30.3 pg (27.0-31.0); Mean Corpuscular Volume 97.6 fl (78.0-98.0); Mean Platelet Volume 7.7 fL (7.4-10.4); Platelet Count 221 10x3/uL (130-400); Red Blood Cell (RBC) Count 3.92 mill/uL (4.20-5.40); White Blood Cell (WBC) Count 4.1 10x3/uL (4.8-10.8)
[2022-02-26] MEDS ORDERED: Cefepime 1 GM in Sodium Chloride 0.9% 100 ML IVPB SCH (04:00)
[2022-02-26 04:07] LABS: BUN (Urea Nitrogen) 7 mg/dL (9.8-20.1); Calc. Creatinine Clearance 115 mL/min (70-130); Calcium 8.7 mg/dL (7.8-10.44); Estimated GFR 96; Glucose 83 mg/dL (80-115); Magnesium 1.6 mg/dL (1.6-2.6)
[2022-02-26 04:17] LABS: Anion Gap 24 mmol/L (10-20); Carbon Dioxide 38 mmol/L (23-31); Chloride 89 mmol/L (98-107); Potassium 3.3 mmol/L (3.5-5.1); Sodium 148 mmol/L (136-145)
[2022-02-26] MEDS ORDERED: Magnesium 2 GM/50 ML(in water) 2 GM in Premix Bag 1 BAG IVPB SCH (04:30)
[2022-02-26] MEDS ORDERED: Sodium Chloride 0.9% 1,000 ML IV SCH ×2 (04:30→04:45)
[2022-02-26] MEDS ORDERED: Potassium Chloride 20 MEQ in Premix Bag 1 BAG IVPB SCH (04:30)
[2022-02-26] MEDS ORDERED: Electrolyte Replacement Protocol 1 EACH FS SCH (04:30)
[2022-02-26] MEDS ORDERED: Polyethylene Glycol 3350 17 GM Packet PO PRN (07:13)
[2022-02-26] MEDS ORDERED: Azithromycin 250 MG TAB PO SCH (09:00)
[2022-02-26] MEDS ORDERED: Non-Formulary Item 1 EACH (Omeprazole [Omeprazole] 20 MG Capsule.Dr) PO SCH (09:00)
[2022-02-26] MEDS ORDERED: methylPREDNISolone Sod Succ 40 MG VIAL IVP SCH (09:00)
[2022-02-26] MEDS: Dextrose 5% in Water 1,000 ML IV SCH ×2 (09:55→18:03)
[2022-02-26] MEDS: Aspirin 325 mg Enteric Coated Tablet PO SCH (09:56)
[2022-02-26] MEDS: ALPRAZolam 0.5 MG TAB PO SCH ×2 (09:56→20:59)
[2022-02-26] MEDS: Sertraline 100 MG TAB PO SCH (09:56)
[2022-02-26] MEDS: Metoprolol Tartrate 25 MG TAB PO SCH ×2 (09:57→20:59)
[2022-02-26] MEDS: Cyanocobalamin (Vitamin B-12) 1,000 MCG TAB PO SCH (09:57)
[2022-02-26] MEDS: Cefepime 2 GM in Sodium Chloride 0.9% 100 ML IVPB SCH (16:53)
[2022-02-26] MEDS: Atorvastatin Calcium 20 MG TAB PO SCH (20:59)
[2022-02-26] MEDS ORDERED: Atorvastatin Calcium 10 MG TAB PO SCH (21:00)
[2022-02-27] MEDS: Cefepime 2 GM in Sodium Chloride 0.9% 100 ML IVPB SCH (03:42)
[2022-02-27 05:54] LABS: Anion Gap 21 mmol/L (10-20); Carbon Dioxide 38 mmol/L (23-31)
[2022-02-27 06:26] LABS: #Lymphocytes 1.2 thou/uL (1.20-3.40); #Monocytes 0.9 thou/uL (0.11-0.59); #Neutrophils 5.5 thou/uL (1.40-6.50); %Basophils 0.2 % (0.0-1.0); %Eosinophils 0.5 % (0.0-10.0); %Lymphocytes 16.2 % (21.0-51.0); %Monocytes 11.3 % (0.0-10.0); %Neutrophils 71.8 % (42.0-75.0); Hemoglobin 9.7 g/dL (12.0-16.0); Mean Corpuscular HGB CONC 30.5 g/dL (32.0-36.0); Mean Corpuscular Hemoglobin 29.2 pg (27.0-31.0); Mean Corpuscular Volume 95.6 fl (78.0-98.0); Mean Platelet Volume 7.1 fL (7.4-10.4); Platelet Count 241 10x3/uL (130-400); RBC Distribution Width 13.8 % (11.5-14.5); Red Blood Cell (RBC) Count 3.31 mill/uL (4.20-5.40); White Blood Cell (WBC) Count 7.6 10x3/uL (4.8-10.8)
[2022-02-27 06:37] LABS: Chloride 88 mmol/L (98-107); Sodium 144 mmol/L (136-145)
[2022-02-27 06:38] LABS: Calcium 8.3 mg/dL (7.8-10.44); Glucose 92 mg/dL (80-115)
[2022-02-27 06:42] LABS: Calc. Creatinine Clearance 107 mL/min (70-130); Estimated GFR 95
[2022-02-27 06:43] LABS: BUN (Urea Nitrogen) 13 mg/dL (9.8-20.1)
[2022-02-27] MEDS ORDERED: Potassium Chloride 20 MEQ TAB PO SCH (08:00)
[2022-02-27] MEDS: Sertraline 100 MG TAB PO SCH (08:28)
[2022-02-27] MEDS: Potassium Chloride 20 MEQ TAB PO SCH ×3 (08:28→18:17)
[2022-02-27] MEDS: predniSONE 5 MG TAB PO SCH (08:28)
[2022-02-27] MEDS: Cefdinir 300 MG CAP PO SCH ×2 (08:29→20:20)
[2022-02-27] MEDS: Metoprolol Tartrate 25 MG TAB PO SCH ×2 (08:29→20:21)
[2022-02-27] MEDS: Cyanocobalamin (Vitamin B-12) 1,000 MCG TAB PO SCH (08:29)
[2022-02-27] MEDS: Aspirin 325 mg Enteric Coated Tablet PO SCH (08:29)
[2022-02-27] MEDS: ALPRAZolam 0.5 MG TAB PO SCH ×2 (08:29→20:21)
[2022-02-27] MEDS: Dextrose 5% in Water 1,000 ML IV SCH ×2 (08:36→22:27)
[2022-02-27] MEDS: Ipratropium/Albuterol 3 ML NEB NEB SCH ×2 (16:16→19:11)
[2022-02-27] MEDS: Atorvastatin Calcium 20 MG TAB PO SCH (20:21)
[2022-02-27] MEDS: Acetaminophen 325 MG TAB PO PRN (23:55)
[2022-02-28] MEDS: Ipratropium/Albuterol 3 ML NEB NEB SCH ×3 (08:08→18:20)
[2022-02-28 08:19] LABS: Anion Gap 15 mmol/L (10-20); Carbon Dioxide 39 mmol/L (23-31); Chloride 92 mmol/L (98-107); Potassium 4.6 mmol/L (3.5-5.1); Sodium 141 mmol/L (136-145)
[2022-02-28 08:20] LABS: BUN (Urea Nitrogen) 13 mg/dL (9.8-20.1); Calc. Creatinine Clearance 112 mL/min (70-130); Calcium 8.5 mg/dL (7.8-10.44); Estimated GFR 96; Glucose 91 mg/dL (80-115)
[2022-02-28] MEDS: Cefdinir 300 MG CAP PO SCH ×2 (09:12→20:24)
[2022-02-28] MEDS: Aspirin 325 mg Enteric Coated Tablet PO SCH (09:12)
[2022-02-28] MEDS: Sertraline 100 MG TAB PO SCH (09:12)
[2022-02-28] MEDS: Metoprolol Tartrate 25 MG TAB PO SCH ×2 (09:12→20:23)
[2022-02-28] MEDS: predniSONE 5 MG TAB PO SCH (09:12)
[2022-02-28] MEDS: Cyanocobalamin (Vitamin B-12) 1,000 MCG TAB PO SCH (09:12)
[2022-02-28] MEDS: Dextrose 5% in Water 1,000 ML IV SCH (11:58)
[2022-02-28] MEDS: Acetaminophen 325 MG TAB PO PRN (18:16)
[2022-02-28] MEDS: Atorvastatin Calcium 20 MG TAB PO SCH (20:24)
[2022-02-28] MEDS: ALPRAZolam 1 MG TAB PO PRN (20:30)
[2022-03-01] MEDS: Dextrose 5% in Water 1,000 ML IV SCH (02:20)
[2022-03-01] MEDS: Ipratropium/Albuterol 3 ML NEB NEB SCH (07:42)
[2022-03-01 08:15] VITALS: BP 148/77; TEMP 98.4
[2022-03-01] MEDS: Sertraline 100 MG TAB PO SCH (08:54)
[2022-03-01] MEDS: Aspirin 325 mg Enteric Coated Tablet PO SCH (08:54)
[2022-03-01] MEDS: Metoprolol Tartrate 25 MG TAB PO SCH (08:54)
[2022-03-01] MEDS: predniSONE 5 MG TAB PO SCH (08:54)
[2022-03-01] MEDS: Cefdinir 300 MG CAP PO SCH (08:54)
[2022-03-01] MEDS: Cyanocobalamin (Vitamin B-12) 1,000 MCG TAB PO SCH (08:54)
[2022-03-01] MEDS: ALPRAZolam 1 MG TAB PO PRN (08:57)
[2022-03-01] MEDS ORDERED: FLU VACC QS2022-23(65YR UP)/PF 240 MCG/0.7 ML SYRINGE IM ONE (09:00)
== END 2022-03-01 11:56 | disposition home or self-care (01) | DRG 189 ==
LOC: 2NO 02-26 00:27 → OBSVTOIN 02-26 04:40 → T4-B 02-26 20:24
PROVIDERS: ADMIT Student in an Organized Health Care Education/Training Program; ATTEND Internal Medicine
DX: J96.21 Acute and chronic respiratory failure with hypoxia (principal); J44.1 Chronic obstructive pulmonary disease with (acute) exacerbation; E87.0 Hyperosmolality and hypernatremia; E87.6 Hypokalemia; L40.9 Psoriasis, unspecified; I10 Essential (primary) hypertension; E66.9 Obesity, unspecified; E78.5 Hyperlipidemia, unspecified; Z99.81 Dependence on supplemental oxygen; Z88.5 Allergy status to narcotic agent; Z79.82 Long term (current) use of aspirin; Z79.51 Long term (current) use of inhaled steroids; Z79.899 Other long term (current) drug therapy; Z68.35 Body mass index [BMI] 35.0-35.9, adult
CPT/HCPCS: 36415; 80048; 81001; 83735; 85025; 87086; 87804; 94640; G0378; J0692; J1940; J2405; J2550; J2920; J3475; J3480; J3490; J7050; J7070; J7512; J7620; U0003; U0005

== ENCOUNTER 2022-05-10 15:53 | Inpatient (IN) | payer MEDICARE ==
[~2022-05-10 15:53] MED LIST changes: -Iopamidol-370 76% 500 ML 1 ML ONE; +Iopamidol-370 76% 500 ML MDV (1 ML CHARGE) ONE
[2022-05-10 16:20] LABS: #Eosinphils 0.1 thou/uL (0.0-0.7); #Lymphocytes 1.7 thou/uL (1.20-3.40); #Monocytes 0.5 thou/uL (0.11-0.59); #Neutrophils 4.2 thou/uL (1.40-6.50); %Basophils 0.2 % (0.0-1.0); %Eosinophils 1.6 % (0.0-10.0); %Lymphocytes 26.2 % (21.0-51.0); %Monocytes 7.8 % (0.0-10.0); %Neutrophils 64.2 % (42.0-75.0); Hemoglobin 11.7 g/dL (12.0-16.0); Mean Corpuscular HGB CONC 30.3 g/dL (32.0-36.0); Mean Corpuscular Hemoglobin 26.9 pg (27.0-31.0); Mean Corpuscular Volume 88.8 fl (78.0-98.0); Platelet Count 328 10x3/uL (130-400); RBC Distribution Width 13.7 % (11.5-14.5); Red Blood Cell (RBC) Count 4.34 mill/uL (4.20-5.40); White Blood Cell (WBC) Count 6.6 10x3/uL (4.8-10.8)
[2022-05-10 16:38] LABS: Prothrombin Time 13.3 sec (12.0-14.7)
[2022-05-10 16:39] LABS: ALT (SGPT) 9 U/L (8-55); AST (SGOT) 15 U/L (5-34); Albumin 3.5 g/dL (3.4-4.8); Alkaline Phosphatase 63 U/L (40-110); BUN (Urea Nitrogen) 10 mg/dL (9.8-20.1); Bilirubin, Total 0.2 mg/dL (0.2-1.2); Calc. Creatinine Clearance 0 mL/min (70-130); Calcium 9.3 mg/dL (7.8-10.44); Estimated GFR 82; Globulin 3.7 g/dL (2.4-3.5); Glucose 100 mg/dL (80-115); Magnesium 1.8 mg/dL (1.6-2.6); PTT 26.7 sec (22.9-36.1); Protein, Total 7.2 g/dL (5.8-8.1)
[2022-05-10 16:47] LABS: Anion Gap 18 mmol/L (10-20); Carbon Dioxide 34 mmol/L (23-31); Chloride 94 mmol/L (98-107); Potassium 4.2 mmol/L (3.5-5.1); Sodium 142 mmol/L (136-145)
[2022-05-10] MEDS ORDERED: Aspirin Chewable 81 MG TAB ONE (18:00)
[2022-05-10] MEDS ORDERED: Ondansetron ODT 4 MG TAB PO PRN (18:20)
[2022-05-10] MEDS: Melatonin 3 MG TAB PO PRN (22:38)
[2022-05-10] MEDS: Atorvastatin Calcium 40 MG TAB PO SCH (22:38)
[2022-05-10] MEDS: Acetaminophen 325 MG TAB PO PRN (22:39)
[2022-05-11 01:57] VITALS: BMI 30.2
[2022-05-11 05:13] LABS: Bilirubin Negative (Negative); Blood, Urine 1+ (Negative); CAUTI Indications for Culture Alt mental st,lethar; Clarity Turbid (Clear); Glucose, Urine (Dipstick) Normal (Negative); Ketone, Urine Negative (Negative); Leukocyte 500 Leu/uL (Negative); Nitrite 2+ (Negative); Protein, Urine (Dipstick) 30 mg/dL (Neg-Trace); RBC/HPF 21-50 HPF (0-3); Specific Gravity, Urine 1.038 (1.002-1.036); Squamous Epithelial 0-3 HPF (0-3); Urobilinogen Normal mg/dL (Less than 2); WBC/HPF Greater than 50 HPF (0-3)
[2022-05-11 05:15] LABS: Bacteria/HPF 3+ HPF (None Seen)
[2022-05-11 05:21] LABS: Urine Culture Reflex Yes Yes
[2022-05-11 05:59] LABS: #Eosinphils 0.2 thou/uL (0.0-0.7); #Lymphocytes 1.6 thou/uL (1.20-3.40); #Monocytes 0.6 thou/uL (0.11-0.59); #Neutrophils 3.8 thou/uL (1.40-6.50); %Eosinophils 2.9 % (0.0-10.0); %Lymphocytes 26.3 % (21.0-51.0); %Monocytes 9.7 % (0.0-10.0); %Neutrophils 61.1 % (42.0-75.0); Hemoglobin 10.5 g/dL (12.0-16.0); Mean Corpuscular HGB CONC 30.5 g/dL (32.0-36.0); Mean Corpuscular Hemoglobin 27.2 pg (27.0-31.0); Mean Platelet Volume 7.8 fL (7.4-10.4); Platelet Count 268 10x3/uL (130-400); RBC Distribution Width 13.4 % (11.5-14.5); Red Blood Cell (RBC) Count 3.86 mill/uL (4.20-5.40); White Blood Cell (WBC) Count 6.2 10x3/uL (4.8-10.8)
[2022-05-11 06:03] LABS: Hemoglobin A1c 4.9 % (4.0-6.0)
[2022-05-11 06:46] LABS: Thyroid Stimulating Hormone 1.831 uIU/mL (0.35-4.94)
[2022-05-11] MEDS: Sertraline 100 MG TAB PO SCH (08:19)
[2022-05-11] MEDS: Cyanocobalamin (Vitamin B-12) 1,000 MCG TAB PO SCH (08:20)
[2022-05-11] MEDS: Acetaminophen 325 MG TAB PO PRN ×3 (08:20→18:29)
[2022-05-11] MEDS: Saccharomyces boulardii 250 MG CAP PO SCH (08:20)
[2022-05-11 08:47] LABS: Anion Gap 14 mmol/L (10-20); BUN (Urea Nitrogen) 11 mg/dL (9.8-20.1); Calc. Creatinine Clearance 88 mL/min (70-130); Carbon Dioxide 36 mmol/L (23-31); Cardiac Risk 2.5 (Less than 4.5); Chloride 96 mmol/L (98-107); Cholesterol 113 mg/dl (< 200 Desired); Estimated GFR 90; Glucose 79 mg/dL (80-115); HDL Cholesterol 46 mg/dL (>60 Neg Risk); LDL Cholesterol, Calculated 50 mg/dL; Potassium 3.8 mmol/L (3.5-5.1); Sodium 142 mmol/L (136-145); Triglycerides 85 mg/dL (Less than 150)
[2022-05-11] MEDS ORDERED: Aspirin 81 mg Enteric Coated Tablet PO SCH (09:00)
[2022-05-11] MEDS ORDERED: Aspirin 325 mg Enteric Coated Tablet PO SCH (09:00)
[2022-05-11] MEDS ORDERED: Clopidogrel Bisulfate 75 MG TAB PO SCH (12:45)
[2022-05-11] MEDS: cefTRIAXone\\ROCEPHIN 1 GM in Sodium Chloride 0.9% 100 ML IVPB SCH (12:52)
[2022-05-11] MEDS: Albuterol 200 PUFF (6.7GM INHALER) INH SCH ×2 (14:47→22:42)
[2022-05-11] MEDS: Polyethylene Glycol 3350 17 GM Packet PO PRN (20:36)
[2022-05-11] MEDS: ALPRAZolam 1 MG TAB PO SCH (20:36)
[2022-05-11] MEDS: Atorvastatin Calcium 40 MG TAB PO SCH (20:36)
[2022-05-11] MEDS: Ondansetron PF 4 MG/2 ML Vial IVP PRN (22:49)
[2022-05-12] MEDS: Acetaminophen 325 MG TAB PO PRN ×4 (03:03→20:30)
[2022-05-12 05:25] LABS: #Eosinphils 0.1 thou/uL (0.0-0.7); #Lymphocytes 1.6 thou/uL (1.20-3.40); #Monocytes 0.8 thou/uL (0.11-0.59); #Neutrophils 5.3 thou/uL (1.40-6.50); %Basophils 0.2 % (0.0-1.0); %Eosinophils 1.6 % (0.0-10.0); %Lymphocytes 20.2 % (21.0-51.0); %Monocytes 10.2 % (0.0-10.0); %Neutrophils 67.8 % (42.0-75.0); Hemoglobin 11.2 g/dL (12.0-16.0); Mean Corpuscular HGB CONC 31.6 g/dL (32.0-36.0); Mean Corpuscular Hemoglobin 27.9 pg (27.0-31.0); Mean Corpuscular Volume 88.1 fl (78.0-98.0); Mean Platelet Volume 7.5 fL (7.4-10.4); Platelet Count 274 10x3/uL (130-400); RBC Distribution Width 13.8 % (11.5-14.5); Red Blood Cell (RBC) Count 4.04 mill/uL (4.20-5.40); White Blood Cell (WBC) Count 7.8 10x3/uL (4.8-10.8)
[2022-05-12 05:45] LABS: BUN (Urea Nitrogen) 12 mg/dL (9.8-20.1); Calc. Creatinine Clearance 83 mL/min (70-130); Calcium 9.1 mg/dL (7.8-10.44); Estimated GFR 83; Glucose 95 mg/dL (80-115)
[2022-05-12 05:57] LABS: Anion Gap 16 mmol/L (10-20); Carbon Dioxide 33 mmol/L (23-31); Chloride 96 mmol/L (98-107); Sodium 141 mmol/L (136-145)
[2022-05-12] MEDS: Albuterol 200 PUFF (6.7GM INHALER) INH SCH ×3 (07:27→23:20)
[2022-05-12] MEDS: Clopidogrel Bisulfate 75 MG TAB PO SCH (09:35)
[2022-05-12] MEDS: ALPRAZolam 1 MG TAB PO SCH ×2 (09:35→20:30)
[2022-05-12] MEDS: Aspirin Chewable 81 MG TAB PO SCH (09:35)
[2022-05-12] MEDS: Saccharomyces boulardii 250 MG CAP PO SCH (09:35)
[2022-05-12] MEDS: Cyanocobalamin (Vitamin B-12) 1,000 MCG TAB PO SCH (09:35)
[2022-05-12] MEDS: Sertraline 100 MG TAB PO SCH (09:35)
[2022-05-12] MEDS: cefTRIAXone\\ROCEPHIN 1 GM in Sodium Chloride 0.9% 100 ML IVPB SCH (12:15)
[2022-05-12] MEDS: Atorvastatin Calcium 40 MG TAB PO SCH (20:30)
[2022-05-13 05:38] LABS: #Eosinphils 0.2 thou/uL (0.0-0.7); #Lymphocytes 1.5 thou/uL (1.20-3.40); #Monocytes 0.6 thou/uL (0.11-0.59); #Neutrophils 4.1 thou/uL (1.40-6.50); %Basophils 0.1 % (0.0-1.0); %Eosinophils 2.6 % (0.0-10.0); %Monocytes 9.4 % (0.0-10.0); %Neutrophils 64.9 % (42.0-75.0); Hemoglobin 11.3 g/dL (12.0-16.0); Mean Corpuscular HGB CONC 29.7 g/dL (32.0-36.0); Mean Corpuscular Hemoglobin 26.3 pg (27.0-31.0); Mean Corpuscular Volume 88.6 fl (78.0-98.0); Mean Platelet Volume 7.6 fL (7.4-10.4); Platelet Count 284 10x3/uL (130-400); Red Blood Cell (RBC) Count 4.31 mill/uL (4.20-5.40); White Blood Cell (WBC) Count 6.3 10x3/uL (4.8-10.8)
[2022-05-13 05:52] LABS: BUN (Urea Nitrogen) 15 mg/dL (9.8-20.1); Calc. Creatinine Clearance 82 mL/min (70-130); Calcium 9.1 mg/dL (7.8-10.44); Estimated GFR 82; Glucose 91 mg/dL (80-115)
[2022-05-13 06:03] LABS: Anion Gap 18 mmol/L (10-20); Carbon Dioxide 32 mmol/L (23-31); Chloride 97 mmol/L (98-107); Potassium 3.8 mmol/L (3.5-5.1); Sodium 143 mmol/L (136-145)
[2022-05-13] MEDS: Albuterol 200 PUFF (6.7GM INHALER) INH SCH ×3 (07:41→22:24)
[2022-05-13] MEDS: ALPRAZolam 1 MG TAB PO SCH ×2 (08:28→20:09)
[2022-05-13] MEDS: Clopidogrel Bisulfate 75 MG TAB PO SCH (08:28)
[2022-05-13] MEDS: Cyanocobalamin (Vitamin B-12) 1,000 MCG TAB PO SCH (08:28)
[2022-05-13] MEDS: Saccharomyces boulardii 250 MG CAP PO SCH (08:28)
[2022-05-13] MEDS: Aspirin Chewable 81 MG TAB PO SCH (08:28)
[2022-05-13] MEDS: Sertraline 100 MG TAB PO SCH (08:28)
[2022-05-13] MEDS: cefTRIAXone\\ROCEPHIN 1 GM in Sodium Chloride 0.9% 100 ML IVPB SCH (12:20)
[2022-05-13] MEDS: Polyethylene Glycol 3350 17 GM Packet PO PRN (12:21)
[2022-05-13] MEDS: Acetaminophen 325 MG TAB PO PRN ×2 (12:21→20:09)
[2022-05-13] MEDS: Cefepime 2 GM in Sodium Chloride 0.9% 100 ML IVPB SCH ×2 (14:02→14:26)
[2022-05-13] MEDS: Atorvastatin Calcium 40 MG TAB PO SCH (20:09)
[2022-05-13] MEDS: Melatonin 3 MG TAB PO PRN (20:09)
[2022-05-14] MEDS: Cefepime 2 GM in Sodium Chloride 0.9% 100 ML IVPB SCH (01:52)
[2022-05-14] MEDS: Acetaminophen 325 MG TAB PO PRN ×3 (01:57→20:23)
[2022-05-14 06:04] LABS: #Eosinphils 0.1 thou/uL (0.0-0.7); #Lymphocytes 1.6 thou/uL (1.20-3.40); #Monocytes 0.8 thou/uL (0.11-0.59); #Neutrophils 5.5 thou/uL (1.40-6.50); %Basophils 0.3 % (0.0-1.0); %Eosinophils 1.8 % (0.0-10.0); %Lymphocytes 19.5 % (21.0-51.0); %Monocytes 10.1 % (0.0-10.0); %Neutrophils 68.2 % (42.0-75.0); Hemoglobin 11.9 g/dL (12.0-16.0); Mean Corpuscular HGB CONC 31.4 g/dL (32.0-36.0); Mean Corpuscular Hemoglobin 27.7 pg (27.0-31.0); Mean Corpuscular Volume 88.3 fl (78.0-98.0); Mean Platelet Volume 7.8 fL (7.4-10.4); Platelet Count 294 10x3/uL (130-400); RBC Distribution Width 13.9 % (11.5-14.5); Red Blood Cell (RBC) Count 4.29 mill/uL (4.20-5.40); White Blood Cell (WBC) Count 8.1 10x3/uL (4.8-10.8)
[2022-05-14 06:28] LABS: Anion Gap 12 mmol/L (10-20); BUN (Urea Nitrogen) 18 mg/dL (9.8-20.1); Calc. Creatinine Clearance 81 mL/min (70-130); Calcium 9.1 mg/dL (7.8-10.44); Carbon Dioxide 34 mmol/L (23-31); Chloride 99 mmol/L (98-107); Estimated GFR 81; Glucose 98 mg/dL (80-115); Potassium 4.1 mmol/L (3.5-5.1); Sodium 141 mmol/L (136-145)
[2022-05-14] MEDS: Albuterol 200 PUFF (6.7GM INHALER) INH SCH ×3 (07:00→23:15)
[2022-05-14] MEDS: Aspirin Chewable 81 MG TAB PO SCH (08:59)
[2022-05-14] MEDS: Cyanocobalamin (Vitamin B-12) 1,000 MCG TAB PO SCH (08:59)
[2022-05-14] MEDS: Saccharomyces boulardii 250 MG CAP PO SCH (08:59)
[2022-05-14] MEDS: Clopidogrel Bisulfate 75 MG TAB PO SCH (08:59)
[2022-05-14] MEDS: Sertraline 100 MG TAB PO SCH (08:59)
[2022-05-14] MEDS: ALPRAZolam 1 MG TAB PO SCH ×2 (08:59→20:24)
[2022-05-14] MEDS ORDERED: Cefepime 1 GM in Sodium Chloride 0.9% 100 ML IVPB SCH (14:00)
[2022-05-14] MEDS ORDERED: Cefepime 2 GM in Sodium Chloride 0.9% 100 ML IVPB SCH (14:00)
[2022-05-14] MEDS ORDERED: GENTAMICIN SULFATE IVPB SCH (15:00)
[2022-05-14] MEDS ORDERED: Gentamicin Sulfate 60 MG in Premix Bag 1 BAG IVPB SCH (15:00)
[2022-05-14] MEDS: Lactated Ringer's 1,000 ML IV SCH (16:16)
[2022-05-14] MEDS: Amikacin Sulfate 900 MG in Sodium Chloride 0.9% 100 ML IVPB SCH (17:18)
[2022-05-14] MEDS: Melatonin 3 MG TAB PO PRN (20:23)
[2022-05-14] MEDS: Polyethylene Glycol 3350 17 GM Packet PO PRN (20:23)
[2022-05-14] MEDS: Atorvastatin Calcium 40 MG TAB PO SCH (20:24)
[2022-05-15 03:49] LABS: #Eosinphils 0.2 thou/uL (0.0-0.7); #Lymphocytes 1.7 thou/uL (1.20-3.40); #Monocytes 0.8 thou/uL (0.11-0.59); #Neutrophils 4.8 thou/uL (1.40-6.50); %Basophils 0.1 % (0.0-1.0); %Eosinophils 2.6 % (0.0-10.0); %Lymphocytes 22.8 % (21.0-51.0); %Monocytes 11.2 % (0.0-10.0); %Neutrophils 63.3 % (42.0-75.0); Hemoglobin 11.4 g/dL (12.0-16.0); Mean Corpuscular HGB CONC 31.5 g/dL (32.0-36.0); Mean Corpuscular Hemoglobin 27.5 pg (27.0-31.0); Mean Corpuscular Volume 87.3 fl (78.0-98.0); Mean Platelet Volume 7.7 fL (7.4-10.4); Platelet Count 266 10x3/uL (130-400); RBC Distribution Width 13.9 % (11.5-14.5); Red Blood Cell (RBC) Count 4.14 mill/uL (4.20-5.40); White Blood Cell (WBC) Count 7.6 10x3/uL (4.8-10.8)
[2022-05-15 04:09] LABS: Anion Gap 12 mmol/L (10-20); BUN (Urea Nitrogen) 18 mg/dL (9.8-20.1); Calc. Creatinine Clearance 91 mL/min (70-130); Calcium 9.1 mg/dL (7.8-10.44); Carbon Dioxide 33 mmol/L (23-31); Chloride 98 mmol/L (98-107); Estimated GFR 93; Glucose 95 mg/dL (80-115); Sodium 139 mmol/L (136-145)
[2022-05-15] MEDS: Albuterol 200 PUFF (6.7GM INHALER) INH SCH ×3 (06:52→19:21)
[2022-05-15] MEDS: Clopidogrel Bisulfate 75 MG TAB PO SCH (09:46)
[2022-05-15] MEDS: Sertraline 100 MG TAB PO SCH (09:46)
[2022-05-15] MEDS: Acetaminophen 325 MG TAB PO PRN ×2 (09:46→21:54)
[2022-05-15] MEDS: ALPRAZolam 1 MG TAB PO SCH ×2 (09:46→21:54)
[2022-05-15] MEDS: Aspirin Chewable 81 MG TAB PO SCH (09:46)
[2022-05-15] MEDS: Cyanocobalamin (Vitamin B-12) 1,000 MCG TAB PO SCH (09:46)
[2022-05-15] MEDS: Saccharomyces boulardii 250 MG CAP PO SCH (09:46)
[2022-05-15] MEDS: Lactated Ringer's 1,000 ML IV SCH (11:51)
[2022-05-15] MEDS: Amikacin Sulfate 900 MG in Sodium Chloride 0.9% 100 ML IVPB SCH (15:40)
[2022-05-15] MEDS: Atorvastatin Calcium 40 MG TAB PO SCH (21:55)
[2022-05-16 06:02] LABS: #Eosinphils 0.2 thou/uL (0.0-0.7); #Lymphocytes 1.8 thou/uL (1.20-3.40); #Monocytes 0.7 thou/uL (0.11-0.59); #Neutrophils 3.6 thou/uL (1.40-6.50); %Basophils 0.1 % (0.0-1.0); %Eosinophils 2.5 % (0.0-10.0); %Lymphocytes 28.6 % (21.0-51.0); %Monocytes 10.6 % (0.0-10.0); %Neutrophils 58.2 % (42.0-75.0); Hemoglobin 11.8 g/dL (12.0-16.0); Mean Corpuscular HGB CONC 32.3 g/dL (32.0-36.0); Mean Corpuscular Hemoglobin 28.1 pg (27.0-31.0); Mean Platelet Volume 7.8 fL (7.4-10.4); Platelet Count 257 10x3/uL (130-400); Red Blood Cell (RBC) Count 4.18 mill/uL (4.20-5.40); White Blood Cell (WBC) Count 6.1 10x3/uL (4.8-10.8)
[2022-05-16] MEDS: Acetaminophen 325 MG TAB PO PRN ×3 (06:04→22:23)
[2022-05-16] MEDS: Lactated Ringer's 1,000 ML IV SCH ×3 (06:04→22:34)
[2022-05-16 06:32] LABS: Anion Gap 13 mmol/L (10-20); BUN (Urea Nitrogen) 16 mg/dL (9.8-20.1); Calc. Creatinine Clearance 85 mL/min (70-130); Calcium 9.1 mg/dL (7.8-10.44); Carbon Dioxide 35 mmol/L (23-31); Chloride 99 mmol/L (98-107); Estimated GFR 86; Glucose 94 mg/dL (80-115); Potassium 4.1 mmol/L (3.5-5.1); Sodium 143 mmol/L (136-145)
[2022-05-16] MEDS: Albuterol 200 PUFF (6.7GM INHALER) INH SCH ×3 (08:14→18:57)
[2022-05-16] MEDS: Aspirin Chewable 81 MG TAB PO SCH (08:49)
[2022-05-16] MEDS: ALPRAZolam 1 MG TAB PO SCH ×2 (08:49→22:22)
[2022-05-16] MEDS: Saccharomyces boulardii 250 MG CAP PO SCH (08:50)
[2022-05-16] MEDS: Cyanocobalamin (Vitamin B-12) 1,000 MCG TAB PO SCH (08:50)
[2022-05-16] MEDS: Clopidogrel Bisulfate 75 MG TAB PO SCH (08:50)
[2022-05-16] MEDS: Sertraline 100 MG TAB PO SCH (08:51)
[2022-05-16] MEDS: Amikacin Sulfate 900 MG in Sodium Chloride 0.9% 100 ML IVPB SCH (15:44)
[2022-05-16] MEDS: Melatonin 3 MG TAB PO PRN (22:22)
[2022-05-16] MEDS: Atorvastatin Calcium 40 MG TAB PO SCH (22:25)
[2022-05-17 05:07] LABS: #Eosinphils 0.2 thou/uL (0.0-0.7); #Lymphocytes 1.6 thou/uL (1.20-3.40); #Monocytes 0.7 thou/uL (0.11-0.59); #Neutrophils 3.3 thou/uL (1.40-6.50); %Basophils 0.1 % (0.0-1.0); %Eosinophils 2.7 % (0.0-10.0); %Lymphocytes 28.1 % (21.0-51.0); %Monocytes 12.1 % (0.0-10.0); Hemoglobin 11.7 g/dL (12.0-16.0); Mean Corpuscular HGB CONC 31.1 g/dL (32.0-36.0); Mean Corpuscular Hemoglobin 27.5 pg (27.0-31.0); Mean Corpuscular Volume 88.2 fl (78.0-98.0); Mean Platelet Volume 8.1 fL (7.4-10.4); Platelet Count 282 10x3/uL (130-400); RBC Distribution Width 13.9 % (11.5-14.5); Red Blood Cell (RBC) Count 4.24 mill/uL (4.20-5.40); White Blood Cell (WBC) Count 5.8 10x3/uL (4.8-10.8)
[2022-05-17 05:29] LABS: Anion Gap 12 mmol/L (10-20); BUN (Urea Nitrogen) 14 mg/dL (9.8-20.1); Calc. Creatinine Clearance 98 mL/min (70-130); Calcium 8.9 mg/dL (7.8-10.44); Carbon Dioxide 31 mmol/L (23-31); Chloride 102 mmol/L (98-107); Estimated GFR 96; Glucose 88 mg/dL (80-115); Potassium 3.6 mmol/L (3.5-5.1); Sodium 141 mmol/L (136-145)
[2022-05-17] MEDS: Albuterol 200 PUFF (6.7GM INHALER) INH SCH ×2 (08:13→14:15)
[2022-05-17] MEDS: Aspirin Chewable 81 MG TAB PO SCH (08:16)
[2022-05-17] MEDS: Cyanocobalamin (Vitamin B-12) 1,000 MCG TAB PO SCH (08:16)
[2022-05-17] MEDS: ALPRAZolam 1 MG TAB PO SCH ×2 (08:16→21:09)
[2022-05-17] MEDS: Sertraline 100 MG TAB PO SCH (08:16)
[2022-05-17] MEDS: Saccharomyces boulardii 250 MG CAP PO SCH (08:16)
[2022-05-17] MEDS: Clopidogrel Bisulfate 75 MG TAB PO SCH (08:16)
[2022-05-17] MEDS: Acetaminophen 325 MG TAB PO PRN ×3 (11:38→21:10)
[2022-05-17] MEDS: Lactated Ringer's 1,000 ML IV SCH (11:38)
[2022-05-17] MEDS ORDERED: Albuterol 200 PUFF (6.7GM INHALER) INH PRN (15:36)
[2022-05-17] MEDS: Amikacin Sulfate 900 MG in Sodium Chloride 0.9% 100 ML IVPB SCH (16:15)
[2022-05-17] MEDS: Mometasone/Formoterol 200/5 60 PUFF INH SCH (17:43)
[2022-05-17] MEDS ORDERED: Atorvastatin Calcium 20 MG TAB PO SCH ×2 (21:00)
[2022-05-17] MEDS: Nystatin Powder 15 GM BOT TOP SCH (21:09)
[2022-05-17] MEDS: Atorvastatin Calcium 40 MG TAB PO SCH (21:09)
[2022-05-17] MEDS ORDERED: [UNRECOGNIZED DRUG - OTHER] IV SCH (22:00)
[2022-05-18] MEDS: Lactated Ringer's 1,000 ML IV SCH ×2 (03:35→17:46)
[2022-05-18 05:38] LABS: Anion Gap 11 mmol/L (10-20); BUN (Urea Nitrogen) 13 mg/dL (9.8-20.1); Calc. Creatinine Clearance 96 mL/min (70-130); Carbon Dioxide 31 mmol/L (23-31); Chloride 103 mmol/L (98-107); Estimated GFR 96; Glucose 88 mg/dL (80-115); Potassium 3.6 mmol/L (3.5-5.1); Sodium 141 mmol/L (136-145)
[2022-05-18 06:06] LABS: #Eosinphils 0.2 thou/uL (0.0-0.7); #Lymphocytes 1.8 thou/uL (1.20-3.40); #Monocytes 0.8 thou/uL (0.11-0.59); %Basophils 0.5 % (0.0-1.0); %Eosinophils 2.6 % (0.0-10.0); %Lymphocytes 26.7 % (21.0-51.0); %Monocytes 11.6 % (0.0-10.0); %Neutrophils 58.6 % (42.0-75.0); Hemoglobin 10.6 g/dL (12.0-16.0); Mean Corpuscular HGB CONC 28.1 g/dL (32.0-36.0); Mean Corpuscular Hemoglobin 24.9 pg (27.0-31.0); Mean Corpuscular Volume 88.7 fl (78.0-98.0); Mean Platelet Volume 8.5 fL (7.4-10.4); Platelet Count 300 10x3/uL (130-400); RBC Distribution Width 14.3 % (11.5-14.5); Red Blood Cell (RBC) Count 4.27 mill/uL (4.20-5.40); White Blood Cell (WBC) Count 6.8 10x3/uL (4.8-10.8)
[2022-05-18] MEDS ORDERED: Iopamidol 30 ML ONE (06:47)
[2022-05-18] MEDS ORDERED: Midazolam HCl 2 mg/2 ml Vial ONE (07:25)
[2022-05-18] MEDS ORDERED: Levofloxacin 500 mg/D5W 100 ml Premix Bag ONE (07:26)
[2022-05-18] MEDS: Mometasone/Formoterol 200/5 60 PUFF INH SCH ×2 (07:38→18:13)
[2022-05-18] MEDS ORDERED: FENTANYL 50 MCG/ML 1 ML VIAL ONE ×2 (07:40→08:43)
[2022-05-18] MEDS ORDERED: PROPOFOL 200 MG/20 ML VIAL ONE (07:47)
[2022-05-18] MEDS ORDERED: Ondansetron PF 4 MG/2 ML Vial ONE (07:47)
[2022-05-18] MEDS ORDERED: Dexamethasone 20 MG/5 ML VIAL ONE (07:47)
[2022-05-18] MEDS ORDERED: Lidocaine 1% PF 5 ML VIAL ONE (07:47)
[2022-05-18] MEDS ORDERED: Ketorolac Tromethamine 30 MG/ML VIAL ONE (07:47)
[2022-05-18] MEDS ORDERED: Ondansetron HCl/PF 4 MG/2 ML Vial IVP PRN (08:04)
[2022-05-18] MEDS ORDERED: Promethazine HCl 25 MG/ML VIAL IM PRN (08:04)
[2022-05-18] MEDS ORDERED: Ketoconazole 2% Cream 15 gm Tube TOP SCH (09:00)
[2022-05-18] MEDS: ALPRAZolam 1 MG TAB PO SCH ×2 (10:09→20:32)
[2022-05-18] MEDS: Aspirin Chewable 81 MG TAB PO SCH (10:09)
[2022-05-18] MEDS: Clopidogrel Bisulfate 75 MG TAB PO SCH (10:09)
[2022-05-18] MEDS: Sertraline 100 MG TAB PO SCH (10:10)
[2022-05-18] MEDS: Saccharomyces boulardii 250 MG CAP PO SCH (10:10)
[2022-05-18] MEDS: Cyanocobalamin (Vitamin B-12) 1,000 MCG TAB PO SCH (10:10)
[2022-05-18] MEDS: Nystatin Powder 15 GM BOT TOP SCH ×2 (10:10→20:33)
[2022-05-18] MEDS: Acetaminophen 325 MG TAB PO PRN ×2 (14:22→20:34)
[2022-05-18] MEDS: Ondansetron PF 4 MG/2 ML Vial IVP PRN (14:22)
[2022-05-18] MEDS: Amikacin Sulfate 900 MG in Sodium Chloride 0.9% 100 ML IVPB SCH (15:58)
[2022-05-18 17:24] LABS: #Lymphocytes 0.7 thou/uL (1.20-3.40); #Monocytes 0.1 thou/uL (0.11-0.59); #Neutrophils 6.3 thou/uL (1.40-6.50); %Basophils 0.1 % (0.0-1.0); %Eosinophils 0.3 % (0.0-10.0); %Lymphocytes 9.7 % (21.0-51.0); %Monocytes 1.9 % (0.0-10.0); Hemoglobin 11.3 g/dL (12.0-16.0); Mean Corpuscular HGB CONC 31.6 g/dL (32.0-36.0); Mean Corpuscular Hemoglobin 27.3 pg (27.0-31.0); Mean Corpuscular Volume 86.2 fl (78.0-98.0); Mean Platelet Volume 8.1 fL (7.4-10.4); Platelet Count 283 10x3/uL (130-400); RBC Distribution Width 14.1 % (11.5-14.5); Red Blood Cell (RBC) Count 4.14 mill/uL (4.20-5.40); White Blood Cell (WBC) Count 7.2 10x3/uL (4.8-10.8)
[2022-05-18] MEDS: Heparin 5,000 UNITS/ML VIAL SC SCH (20:31)
[2022-05-18] MEDS: Melatonin 3 MG TAB PO PRN (20:32)
[2022-05-18] MEDS: Atorvastatin Calcium 40 MG TAB PO SCH (20:32)
[2022-05-18] MEDS: Metoprolol Tartrate 25 MG TAB PO SCH (20:32)
[2022-05-19 05:45] LABS: #Lymphocytes 1.5 thou/uL (1.20-3.40); #Monocytes 0.6 thou/uL (0.11-0.59); #Neutrophils 4.7 thou/uL (1.40-6.50); %Basophils 0.2 % (0.0-1.0); %Eosinophils 0.4 % (0.0-10.0); %Lymphocytes 21.6 % (21.0-51.0); %Neutrophils 68.8 % (42.0-75.0); Hemoglobin 10.4 g/dL (12.0-16.0); Mean Corpuscular HGB CONC 30.7 g/dL (32.0-36.0); Mean Corpuscular Volume 87.9 fl (78.0-98.0); Mean Platelet Volume 8.3 fL (7.4-10.4); Platelet Count 275 10x3/uL (130-400); RBC Distribution Width 13.9 % (11.5-14.5); Red Blood Cell (RBC) Count 3.86 mill/uL (4.20-5.40); White Blood Cell (WBC) Count 6.9 10x3/uL (4.8-10.8)
[2022-05-19 06:08] LABS: Anion Gap 11 mmol/L (10-20); BUN (Urea Nitrogen) 14 mg/dL (9.8-20.1); Calc. Creatinine Clearance 96 mL/min (70-130); Calcium 8.7 mg/dL (7.8-10.44); Carbon Dioxide 32 mmol/L (23-31); Chloride 101 mmol/L (98-107); Estimated GFR 96; Glucose 96 mg/dL (80-115); Potassium 3.8 mmol/L (3.5-5.1); Sodium 140 mmol/L (136-145)
[2022-05-19] MEDS: Mometasone/Formoterol 200/5 60 PUFF INH SCH ×2 (06:30→19:29)
[2022-05-19] MEDS: Lactated Ringer's 1,000 ML IV SCH ×2 (06:50→18:12)
[2022-05-19] MEDS: Aspirin Chewable 81 MG TAB PO SCH (09:37)
[2022-05-19] MEDS: ALPRAZolam 1 MG TAB PO SCH ×2 (09:38→20:11)
[2022-05-19] MEDS: Sertraline 100 MG TAB PO SCH (09:38)
[2022-05-19] MEDS: Metoprolol Tartrate 25 MG TAB PO SCH ×2 (09:38→20:11)
[2022-05-19] MEDS: Cyanocobalamin (Vitamin B-12) 1,000 MCG TAB PO SCH (09:38)
[2022-05-19] MEDS: Nystatin Powder 15 GM BOT TOP SCH ×2 (09:39→20:37)
[2022-05-19] MEDS: Clopidogrel Bisulfate 75 MG TAB PO SCH (09:39)
[2022-05-19] MEDS: Heparin 5,000 UNITS/ML VIAL SC SCH ×3 (09:39→20:12)
[2022-05-19] MEDS: Saccharomyces boulardii 250 MG CAP PO SCH (09:39)
[2022-05-19] MEDS: Acetaminophen 325 MG TAB PO PRN ×2 (09:45→23:29)
[2022-05-19] MEDS: [UNRECOGNIZED DRUG - OTHER] IV SCH ×3 (10:59→20:49)
[2022-05-19] MEDS: Atorvastatin Calcium 40 MG TAB PO SCH (20:11)
[2022-05-19] MEDS: Melatonin 3 MG TAB PO PRN (20:11)
[2022-05-20 06:00] LABS: #Eosinphils 0.1 thou/uL (0.0-0.7); #Lymphocytes 2.4 thou/uL (1.20-3.40); #Monocytes 0.8 thou/uL (0.11-0.59); %Basophils 0.3 % (0.0-1.0); %Eosinophils 1.7 % (0.0-10.0); %Lymphocytes 32.4 % (21.0-51.0); %Neutrophils 54.5 % (42.0-75.0); Hemoglobin 10.6 g/dL (12.0-16.0); Mean Corpuscular HGB CONC 30.9 g/dL (32.0-36.0); Mean Corpuscular Hemoglobin 27.1 pg (27.0-31.0); Mean Corpuscular Volume 87.7 fl (78.0-98.0); Mean Platelet Volume 8.4 fL (7.4-10.4); Platelet Count 257 10x3/uL (130-400); RBC Distribution Width 14.2 % (11.5-14.5); White Blood Cell (WBC) Count 7.3 10x3/uL (4.8-10.8)
[2022-05-20] MEDS: Lactated Ringer's 1,000 ML IV SCH ×2 (06:00→21:22)
[2022-05-20 06:12] LABS: Anion Gap 11 mmol/L (10-20); BUN (Urea Nitrogen) 16 mg/dL (9.8-20.1); Calc. Creatinine Clearance 90 mL/min (70-130); Calcium 8.8 mg/dL (7.8-10.44); Carbon Dioxide 34 mmol/L (23-31); Chloride 102 mmol/L (98-107); Estimated GFR 92; Glucose 86 mg/dL (80-115); Potassium 3.6 mmol/L (3.5-5.1); Sodium 143 mmol/L (136-145)
[2022-05-20] MEDS: Mometasone/Formoterol 200/5 60 PUFF INH SCH ×2 (08:25→18:40)
[2022-05-20] MEDS: Acetaminophen 325 MG TAB PO PRN ×2 (08:26→14:20)
[2022-05-20] MEDS: Sertraline 100 MG TAB PO SCH (08:27)
[2022-05-20] MEDS: Saccharomyces boulardii 250 MG CAP PO SCH (08:27)
[2022-05-20] MEDS: ALPRAZolam 1 MG TAB PO SCH ×2 (08:27→20:19)
[2022-05-20] MEDS: Heparin 5,000 UNITS/ML VIAL SC SCH ×3 (08:27→20:18)
[2022-05-20] MEDS: Clopidogrel Bisulfate 75 MG TAB PO SCH (08:27)
[2022-05-20] MEDS: Metoprolol Tartrate 25 MG TAB PO SCH ×2 (08:27→20:18)
[2022-05-20] MEDS: Cyanocobalamin (Vitamin B-12) 1,000 MCG TAB PO SCH (08:27)
[2022-05-20] MEDS: Aspirin Chewable 81 MG TAB PO SCH (08:27)
[2022-05-20] MEDS: Nystatin Powder 15 GM BOT TOP SCH ×2 (08:27→20:26)
[2022-05-20] MEDS: Melatonin 3 MG TAB PO PRN (20:18)
[2022-05-20] MEDS: Atorvastatin Calcium 40 MG TAB PO SCH (20:18)
[2022-05-21] MEDS: Acetaminophen 325 MG TAB PO PRN ×2 (03:53→15:38)
[2022-05-21] MEDS: Lactated Ringer's 1,000 ML IV SCH ×2 (03:58→09:51)
[2022-05-21 05:45] LABS: #Eosinphils 0.1 thou/uL (0.0-0.7); #Lymphocytes 1.8 thou/uL (1.20-3.40); #Monocytes 0.9 thou/uL (0.11-0.59); #Neutrophils 4.8 thou/uL (1.40-6.50); %Basophils 0.2 % (0.0-1.0); %Eosinophils 1.8 % (0.0-10.0); %Lymphocytes 23.7 % (21.0-51.0); %Monocytes 11.6 % (0.0-10.0); %Neutrophils 62.7 % (42.0-75.0); Mean Corpuscular Hemoglobin 27.7 pg (27.0-31.0); Mean Corpuscular Volume 86.5 fl (78.0-98.0); Mean Platelet Volume 8.5 fL (7.4-10.4); Platelet Count 275 10x3/uL (130-400); Red Blood Cell (RBC) Count 3.96 mill/uL (4.20-5.40); White Blood Cell (WBC) Count 7.6 10x3/uL (4.8-10.8)
[2022-05-21] MEDS: Mometasone/Formoterol 200/5 60 PUFF INH SCH ×2 (08:25→19:06)
[2022-05-21] MEDS: Aspirin Chewable 81 MG TAB PO SCH (09:52)
[2022-05-21] MEDS: Cyanocobalamin (Vitamin B-12) 1,000 MCG TAB PO SCH (09:52)
[2022-05-21] MEDS: Metoprolol Tartrate 25 MG TAB PO SCH (09:52)
[2022-05-21] MEDS: Clopidogrel Bisulfate 75 MG TAB PO SCH (09:52)
[2022-05-21] MEDS: Saccharomyces boulardii 250 MG CAP PO SCH (09:52)
[2022-05-21] MEDS: Heparin 5,000 UNITS/ML VIAL SC SCH ×2 (09:52→15:37)
[2022-05-21] MEDS: Sertraline 100 MG TAB PO SCH (09:52)
[2022-05-21] MEDS: ALPRAZolam 1 MG TAB PO SCH (09:52)
[2022-05-21] MEDS: Nystatin Powder 15 GM BOT TOP SCH (09:53)
[2022-05-21 10:53] LABS: Anion Gap 17 mmol/L (10-20); BUN (Urea Nitrogen) 10 mg/dL (9.8-20.1); Calc. Creatinine Clearance 99 mL/min (70-130); Calcium 9.2 mg/dL (7.8-10.44); Carbon Dioxide 26 mmol/L (23-31); Chloride 100 mmol/L (98-107); Estimated GFR 96; Glucose 114 mg/dL (80-115); Potassium 4.3 mmol/L (3.5-5.1); Sodium 139 mmol/L (136-145)
[2022-05-21 16:39] VITALS: BP 177/106; TEMP 97.8
== END 2022-05-21 19:49 | DRG 659 ==
LOC: ERS 15:53 → ERHOLD 18:33 → NEURO 20:20
PROVIDERS: ADMIT Family Medicine; ATTEND Family Medicine
PROC: 0T768DZ Dilation of Right Ureter with Intraluminal Device, Via Natural or Artificial Opening Endoscopic (ICD-10-PCS; principal; 2022-05-18)
PROC: 02HV33Z Insertion of Infusion Device into Superior Vena Cava, Percutaneous Approach (ICD-10-PCS; 2022-05-19)
PROC: B5181ZA Fluoroscopy of Superior Vena Cava using Low Osmolar Contrast, Guidance (ICD-10-PCS; 2022-05-19)
PROC: B548ZZA Ultrasonography of Superior Vena Cava, Guidance (ICD-10-PCS; 2022-05-19)
DX: N13.6 Pyonephrosis (principal); G93.41 Metabolic encephalopathy; J96.10 Chronic respiratory failure, unspecified whether with hypoxia or hypercapnia; R47.01 Aphasia; Z16.24 Resistance to multiple antibiotics; Z20.822 Contact with and (suspected) exposure to COVID-19; L40.9 Psoriasis, unspecified; D63.8 Anemia in other chronic diseases classified elsewhere; F41.9 Anxiety disorder, unspecified; F32.A Depression, unspecified; E78.5 Hyperlipidemia, unspecified; K21.9 Gastro-esophageal reflux disease without esophagitis; B96.5 Pseudomonas (aeruginosa) (mallei) (pseudomallei) as the cause of diseases classified elsewhere; Z99.81 Dependence on supplemental oxygen; Z87.440 Personal history of urinary (tract) infections; Z79.82 Long term (current) use of aspirin; Z79.899 Other long term (current) drug therapy; Z98.890 Other specified postprocedural states; Z82.49 Family history of ischemic heart disease and other diseases of the circulatory system; Z87.891 Personal history of nicotine dependence
CPT/HCPCS: 36415; 36416; 36569; 70450; 70496; 70498; 71045; 74176; 80048; 80053; 80061; 80150; 81001; 82607; 83036; 83735; 84443; 84484; 85025; 85610; 85730; 87077; 87086; 87186; 93005; 93010; 93306; 94640; 95712; 95819; 95957; C1751; C2617; J0278; J0692; J0695; J0696; J1100; J1644; J1885; J1956; J2250; J2405; J2704; J3010; J3490; J7120; J7611; Q9967; U0003; U0005

== ENCOUNTER 2022-06-17 09:22 | Day surgery (SDC) | payer MEDICARE ==
[2022-06-16 11:32] VITALS: BMI 30.2
[2022-06-17] MEDS ORDERED: fentaNYL PF 100 MCG/2 ML SYRINGE ONE (10:30)
[2022-06-17] MEDS ORDERED: Ipratropium/Albuterol 3 ML NEB ONE (12:17)
[2022-06-17] MEDS ORDERED: Ipratropium/Albuterol 3 ML NEB NEB PRN (12:36)
[2022-06-17] MEDS ORDERED: fentaNYL 50 mcg/mL 1 mL Vial ONE (13:02)
[2022-06-17] MEDS ORDERED: Levofloxacin 500 mg/D5W 100 ml Premix Bag ONE (13:27)
[2022-06-17] MEDS ORDERED: Rocuronium Bromide 10 MG/ML (10ML VIAL) ONE (13:40)
[2022-06-17] MEDS ORDERED: NEOSTIGMINE 3 MG/3 ML SYR 3 MG/3 ML SYRINGE ONE (13:40)
[2022-06-17] MEDS ORDERED: Glycopyrrolate 0.2 MG/ML 5 ML SYRINGE ONE (13:40)
[2022-06-17] MEDS ORDERED: Dexamethasone 20 MG/5 ML VIAL ONE (13:40)
[2022-06-17] MEDS ORDERED: ePHEDrine Sulfate 50 MG/10 ML VIAL ONE (13:40)
[2022-06-17] MEDS ORDERED: PROPOFOL 200 MG/20 ML VIAL ONE (13:40)
[2022-06-17] MEDS ORDERED: Ondansetron PF 4 MG/2 ML Vial ONE (13:40)
== END 2022-06-17 17:05 | disposition critical access hospital (66) ==
LOC: SDC 09:22
PROVIDERS: ATTEND Urology
PROC: 0TC08ZZ Extirpation of Matter from Right Kidney, Via Natural or Artificial Opening Endoscopic (ICD-10-PCS; principal; 2022-06-17)
PROC: 0T768DZ Dilation of Right Ureter with Intraluminal Device, Via Natural or Artificial Opening Endoscopic (ICD-10-PCS; 2022-06-17)
DX: N20.0 Calculus of kidney (principal); I12.9 Hypertensive chronic kidney disease with stage 1 through stage 4 chronic kidney disease, or unspecified chronic kidney disease; N18.9 Chronic kidney disease, unspecified; J44.9 Chronic obstructive pulmonary disease, unspecified; Z86.73 Personal history of transient ischemic attack (TIA), and cerebral infarction without residual deficits; Z79.02 Long term (current) use of antithrombotics/antiplatelets; Z79.82 Long term (current) use of aspirin; Z79.899 Other long term (current) drug therapy; Z88.5 Allergy status to narcotic agent
CPT/HCPCS: 52356; 82365; J3010; 88300; C1713; C1747; C1769; C2617; J1100; J1956; J2405; J2704; J7620

== ENCOUNTER 2022-10-10 | Inpatient (IN) | payer MEDICARE ==
[2022-10-11] MEDS ORDERED: Cefepime 2 GM VIAL ONE (00:26)
[2022-10-11] MEDS ORDERED: Nystatin Cream 30 GM TUBE TOP SCH (00:45)
[2022-10-11 01:24] LABS: Bacteria/HPF None Seen HPF (None Seen); Bilirubin Negative (Negative); Blood, Urine 2+ (Negative); CAUTI Indications for Culture Pelvic or flank pain; Clarity Turbid (Clear); Glucose, Urine (Dipstick) Normal (Negative); Ketone, Urine Trace mg/dL (Negative); Leukocyte 500 Leu/uL (Negative); Nitrite Negative (Negative); Protein, Urine (Dipstick) 20 mg/dL (Neg-Trace); Specific Gravity, Urine 1.008 (1.002-1.036); Squamous Epithelial None Seen HPF (0-3); Urobilinogen Normal mg/dL (Less than 2); WBC/HPF Greater than 50 HPF (0-3); pH, Urine 5.5 (5.0-9.0)
[2022-10-11 01:33] LABS: Urine Culture Reflex Yes Yes
[2022-10-11 01:37] LABS: #Monocytes 0.4 thou/uL (0.11-0.59); #Neutrophils 7.5 thou/uL (1.40-6.50); %Basophils 0.1 % (0.0-1.0); %Monocytes 4.3 % (0.0-10.0); %Neutrophils 87.9 % (42.0-75.0); Hematocrit 31.7 % (36.0-47.0); Hemoglobin 9.7 g/dL (12.0-16.0); Mean Corpuscular HGB CONC 30.6 g/dL (32.0-36.0); Mean Corpuscular Hemoglobin 26.6 pg (27.0-31.0); Mean Corpuscular Volume 87.1 fl (78.0-98.0); Mean Platelet Volume 10.6 fL (7.4-10.4); Platelet Count 95 10x3/uL (130-400); RBC Distribution Width 14.2 % (11.5-14.5); Red Blood Cell (RBC) Count 3.64 mill/uL (4.20-5.40); White Blood Cell (WBC) Count 8.5 10x3/uL (4.8-10.8)
[2022-10-11 01:39] LABS: Base Excess 0.8 mEq/L (-2.0 to +3.0); Calcium, Ionized (venous) 0.98 mmol/L (1.16-1.32); Chloride (VBG) 98 mmol/L (98-106); Hematocrit-VBG 33 % (36.0-47.0); Hemoglobin (Hb) 11.1 g/dL (11.7-16.1); Potassium (VBG) 3.83 mmol/L (3.70-5.30); Sodium 133.1 mmol/L (133-146); pH (venous) 7.432 (7.32-7.43)
[2022-10-11 01:51] LABS: Delete Auto Diff?? NO
[2022-10-11 01:56] LABS: ALT (SGPT) 7 U/L (8-55); AST (SGOT) 18 U/L (5-34); Albumin 3.1 g/dL (3.4-4.8); Alkaline Phosphatase 52 U/L (40-110); Anion Gap 18 mmol/L (10-20); BUN (Urea Nitrogen) 18 mg/dL (9.8-20.1); Bilirubin, Total 0.3 mg/dL (0.2-1.2); Calc. Creatinine Clearance 0 mL/min (70-130); Calcium 8.4 mg/dL (7.8-10.44); Carbon Dioxide 23 mmol/L (23-31); Chloride 97 mmol/L (98-107); Estimated GFR 72; Globulin 3.3 g/dL (2.4-3.5); Glucose 69 mg/dL (80-115); Potassium 3.8 mmol/L (3.5-5.1); Protein, Total 6.4 g/dL (5.8-8.1); Sodium 134 mmol/L (136-145)
[2022-10-11] MEDS ORDERED: Ondansetron ODT 4 MG TAB PO PRN (02:52)
[2022-10-11] MEDS ORDERED: Ondansetron PF 4 MG/2 ML Vial IVP PRN (02:52)
[2022-10-11] MEDS ORDERED: Acetaminophen 650 MG Suppository PR PRN (02:52)
[2022-10-11] MEDS ORDERED: Ipratropium/Albuterol 3 ML NEB NEB PRN (03:06)
[2022-10-11 04:19] LABS: CK (CPK) 74 U/L (29-168); Lipase Less than 4 U/L (8-78)
[2022-10-11 04:23] LABS: Troponin I Less than 0.010 ng/mL (< 0.028)
[2022-10-11] MEDS: Sodium Chloride 0.9% 1,000 ML IV SCH ×2 (05:06→11:21)
[2022-10-11 05:25] VITALS: BMI 32.3
[2022-10-11] MEDS ORDERED: NOREPINEPHRINE 8 MG/250 ML-D5W 250 ML ONE (07:14)
[2022-10-11] MEDS ORDERED: NOREPINEPHRINE 8 MG/250 ML-D5W 250 ML IVPB SCH (07:15)
[2022-10-11] MEDS ORDERED: Sodium Chloride 0.9% 1,000 ML IV SCH (07:15)
[2022-10-11] MEDS ORDERED: VANCOMYCIN 1.25 GM/250 ML BAG 1.25 GM in Premix Bag 1 BAG IVPB SCH (09:00)
[2022-10-11] MEDS ORDERED: Iopamidol-370 76% 500 ML MDV (1 ML CHARGE) ONE (11:01)
[2022-10-11] MEDS: Acetaminophen 325 MG TAB PO PRN ×2 (11:37→16:59)
[2022-10-11 11:54] LABS: #Monocytes 0.5 thou/uL (0.11-0.59); #Neutrophils 7.8 thou/uL (1.40-6.50); %Basophils 0.2 % (0.0-1.0); %Eosinophils 0.4 % (0.0-10.0); %Lymphocytes 7.8 % (21.0-51.0); %Monocytes 5.3 % (0.0-10.0); %Neutrophils 85.9 % (42.0-75.0); Hematocrit 32.1 % (36.0-47.0); Hemoglobin 9.8 g/dL (12.0-16.0); Mean Corpuscular HGB CONC 30.5 g/dL (32.0-36.0); Mean Corpuscular Hemoglobin 27.1 pg (27.0-31.0); Mean Corpuscular Volume 88.9 fl (78.0-98.0); Mean Platelet Volume 10.5 fL (7.4-10.4); Platelet Count 191 10x3/uL (130-400); RBC Distribution Width 14.5 % (11.5-14.5); Red Blood Cell (RBC) Count 3.61 mill/uL (4.20-5.40); White Blood Cell (WBC) Count 9.1 10x3/uL (4.8-10.8)
[2022-10-11 11:56] LABS: SARS-CoV-2 NAA Rapid Test Not Detected (NotDetected)
[2022-10-11 12:43] LABS: Iron 15 ug/dL (50-170); Iron Binding Capacity, Total 296 mcg/dL (265-497)
[2022-10-11 12:45] LABS: Anion Gap 14 mmol/L (10-20); BUN (Urea Nitrogen) 16 mg/dL (9.8-20.1); Calc. Creatinine Clearance 90 mL/min (70-130); Calcium 8.2 mg/dL (7.8-10.44); Carbon Dioxide 22 mmol/L (23-31); Chloride 107 mmol/L (98-107); Estimated GFR 84; Glucose 96 mg/dL (80-115); Iron 14 ug/dL (50-170); Iron Binding Capacity, Total 291 mcg/dL (265-497); Potassium 3.3 mmol/L (3.5-5.1); Sodium 140 mmol/L (136-145)
[2022-10-11] MEDS ORDERED: Potassium Chloride 20 MEQ TAB PO SCH (13:30)
[2022-10-11] MEDS ORDERED: Electrolyte Replacement Protocol FS PRN (13:30)
[2022-10-11] MEDS: Cefepime 2 GM in Sodium Chloride 0.9% 100 ML IVPB SCH (13:59)
[2022-10-11] MEDS ORDERED: Potassium Bicarbonate/Cit Ac 20 MEQ TAB PO SCH (14:00)
[2022-10-11 18:19] LABS: Potassium 4.1 mmol/L (3.5-5.1)
[2022-10-11] MEDS ORDERED: Mometasone 200 MCG/Formoterol 5 MCG 120 PUFF INHALER INH SCH (20:30)
[2022-10-11] MEDS: ALPRAZolam 0.5 MG TAB PO SCH (21:29)
[2022-10-11] MEDS: Nystatin Cream 15 GM TUBE TOP SCH (21:30)
[2022-10-12] MEDS ORDERED: VANCOMYCIN 1.75 GM/500 ML BAG 1.75 GM in Premix Bag 1 BAG IVPB SCH (02:00)
[2022-10-12] MEDS: Cefepime 2 GM in Sodium Chloride 0.9% 100 ML IVPB SCH ×2 (02:14→14:50)
[2022-10-12] MEDS: Acetaminophen 325 MG TAB PO PRN ×4 (03:44→22:42)
[2022-10-12] MEDS: Mometasone 200 MCG/Formoterol 5 MCG 120 PUFF INHALER INH SCH ×2 (07:37→21:46)
[2022-10-12 08:13] LABS: #Eosinphils 0.2 thou/uL (0.0-0.7); #Monocytes 0.6 thou/uL (0.11-0.59); #Neutrophils 5.3 thou/uL (1.40-6.50); %Basophils 0.1 % (0.0-1.0); %Eosinophils 3.2 % (0.0-10.0); %Lymphocytes 15.1 % (21.0-51.0); %Monocytes 7.8 % (0.0-10.0); Hematocrit 36.2 % (36.0-47.0); Hemoglobin 10.5 g/dL (12.0-16.0); Mean Corpuscular Hemoglobin 27.1 pg (27.0-31.0); Mean Platelet Volume 10.1 fL (7.4-10.4); Platelet Count 197 10x3/uL (130-400); RBC Distribution Width 14.7 % (11.5-14.5); Red Blood Cell (RBC) Count 3.88 mill/uL (4.20-5.40); White Blood Cell (WBC) Count 7.2 10x3/uL (4.8-10.8)
[2022-10-12] MEDS: Nystatin Cream 15 GM TUBE TOP SCH ×2 (08:18→21:22)
[2022-10-12] MEDS: Sertraline 100 MG TAB PO SCH (08:18)
[2022-10-12] MEDS: ALPRAZolam 0.5 MG TAB PO SCH ×2 (08:18→21:14)
[2022-10-12 08:32] LABS: Mean Corpuscular Volume 93.3 fl (78.0-98.0)
[2022-10-12 08:34] LABS: Anion Gap 14 mmol/L (10-20); BUN (Urea Nitrogen) 13 mg/dL (9.8-20.1); Calc. Creatinine Clearance 93 mL/min (70-130); Calcium 8.6 mg/dL (7.8-10.44); Carbon Dioxide 24 mmol/L (23-31); Chloride 106 mmol/L (98-107); Estimated GFR 87; Glucose 85 mg/dL (80-115); Potassium 3.6 mmol/L (3.5-5.1); Sodium 140 mmol/L (136-145)
[2022-10-12] MEDS: diphenhydrAMINE 25 MG CAP PO PRN ×2 (15:10→22:43)
[2022-10-13] MEDS: Cefepime 2 GM in Sodium Chloride 0.9% 100 ML IVPB SCH ×2 (02:13→13:04)
[2022-10-13] MEDS: Vancomycin 1 GM in Premix Bag 1 BAG IVPB SCH ×2 (02:22→14:46)
[2022-10-13 07:40] LABS: #Eosinphils 0.4 thou/uL (0.0-0.7); #Monocytes 0.6 thou/uL (0.11-0.59); #Neutrophils 4.7 thou/uL (1.40-6.50); %Basophils 0.3 % (0.0-1.0); %Lymphocytes 12.7 % (21.0-51.0); %Monocytes 9.2 % (0.0-10.0); %Neutrophils 71.2 % (42.0-75.0); Hematocrit 33.5 % (36.0-47.0); Mean Corpuscular HGB CONC 29.9 g/dL (32.0-36.0); Mean Corpuscular Hemoglobin 27.1 pg (27.0-31.0); Mean Corpuscular Volume 90.8 fl (78.0-98.0); Mean Platelet Volume 10.3 fL (7.4-10.4); Platelet Count 223 10x3/uL (130-400); RBC Distribution Width 14.6 % (11.5-14.5); Red Blood Cell (RBC) Count 3.69 mill/uL (4.20-5.40); White Blood Cell (WBC) Count 6.5 10x3/uL (4.8-10.8)
[2022-10-13] MEDS: ALPRAZolam 0.5 MG TAB PO SCH ×2 (07:53→20:40)
[2022-10-13] MEDS: Sertraline 100 MG TAB PO SCH (07:54)
[2022-10-13] MEDS: Acetaminophen 325 MG TAB PO PRN ×3 (07:54→20:53)
[2022-10-13] MEDS: Nystatin Cream 15 GM TUBE TOP SCH ×2 (07:55→20:43)
[2022-10-13] MEDS: Mometasone 200 MCG/Formoterol 5 MCG 120 PUFF INHALER INH SCH ×2 (08:00→18:45)
[2022-10-13 08:06] LABS: Anion Gap 12 mmol/L (10-20); BUN (Urea Nitrogen) 10 mg/dL (9.8-20.1); Calc. Creatinine Clearance 96 mL/min (70-130); Calcium 8.4 mg/dL (7.8-10.44); Carbon Dioxide 27 mmol/L (23-31); Chloride 105 mmol/L (98-107); Estimated GFR 90; Glucose 87 mg/dL (80-115); Potassium 3.6 mmol/L (3.5-5.1); Sodium 140 mmol/L (136-145)
[2022-10-13] MEDS ORDERED: Guaifenesin DM 100-10/5 ML UDCUP PO PRN (08:34)
[2022-10-13] MEDS: diphenhydrAMINE 25 MG CAP PO PRN ×2 (14:52→20:53)
[2022-10-14] MEDS: Cefepime 2 GM in Sodium Chloride 0.9% 100 ML IVPB SCH ×2 (02:15→14:29)
[2022-10-14] MEDS: Vancomycin 1 GM in Premix Bag 1 BAG IVPB SCH (03:04)
[2022-10-14 06:16] LABS: #Eosinphils 0.5 thou/uL (0.0-0.7); #Monocytes 0.6 thou/uL (0.11-0.59); #Neutrophils 3.9 thou/uL (1.40-6.50); %Basophils 0.3 % (0.0-1.0); %Eosinophils 7.3 % (0.0-10.0); %Lymphocytes 17.8 % (21.0-51.0); %Monocytes 9.7 % (0.0-10.0); %Neutrophils 63.9 % (42.0-75.0); Hematocrit 30.9 % (36.0-47.0); Hemoglobin 9.2 g/dL (12.0-16.0); Mean Corpuscular HGB CONC 29.8 g/dL (32.0-36.0); Mean Corpuscular Hemoglobin 26.7 pg (27.0-31.0); Mean Corpuscular Volume 89.6 fl (78.0-98.0); Mean Platelet Volume 9.8 fL (7.4-10.4); Platelet Count 223 10x3/uL (130-400); RBC Distribution Width 14.7 % (11.5-14.5); Red Blood Cell (RBC) Count 3.45 mill/uL (4.20-5.40); White Blood Cell (WBC) Count 6.2 10x3/uL (4.8-10.8)
[2022-10-14 06:52] LABS: Anion Gap 12 mmol/L (10-20); BUN (Urea Nitrogen) 10 mg/dL (9.8-20.1); Calc. Creatinine Clearance 113 mL/min (70-130); Calcium 8.3 mg/dL (7.8-10.44); Carbon Dioxide 28 mmol/L (23-31); Chloride 105 mmol/L (98-107); Estimated GFR 98; Glucose 91 mg/dL (80-115); Potassium 3.7 mmol/L (3.5-5.1); Sodium 141 mmol/L (136-145)
[2022-10-14] MEDS: Acetaminophen 325 MG TAB PO PRN ×2 (06:52→20:25)
[2022-10-14] MEDS: Mometasone 200 MCG/Formoterol 5 MCG 120 PUFF INHALER INH SCH ×2 (07:09→19:14)
[2022-10-14] MEDS: Sertraline 100 MG TAB PO SCH (08:42)
[2022-10-14] MEDS: ALPRAZolam 0.5 MG TAB PO SCH ×2 (08:42→20:17)
[2022-10-14] MEDS: Nystatin Cream 15 GM TUBE TOP SCH ×2 (08:43→20:19)
[2022-10-14] MEDS: diphenhydrAMINE 25 MG CAP PO PRN ×2 (08:49→20:25)
[2022-10-14] MEDS ORDERED: Vancomycin 1 GM in Premix Bag 1 BAG IVPB SCH (12:45)
[2022-10-14 13:40] LABS: Vancomycin, Trough 19.5 ug/mL
[2022-10-14] MEDS ORDERED: Vancomycin HCl 750 MG in Sodium Chloride 0.9% 250 ML 250 ML IVPB SCH (16:00)
[2022-10-14] MEDS: Sulfameth/Trimethoprim DS 800-160mg TAB PO SCH (20:17)
[2022-10-15] MEDS: Mometasone 200 MCG/Formoterol 5 MCG 120 PUFF INHALER INH SCH (07:10)
[2022-10-15 09:11] LABS: #Eosinphils 0.4 thou/uL (0.0-0.7); #Monocytes 0.6 thou/uL (0.11-0.59); #Neutrophils 4.3 thou/uL (1.40-6.50); %Basophils 0.6 % (0.0-1.0); %Eosinophils 6.6 % (0.0-10.0); %Lymphocytes 16.7 % (21.0-51.0); %Monocytes 9.5 % (0.0-10.0); %Neutrophils 65.2 % (42.0-75.0); Hematocrit 37.2 % (36.0-47.0); Hemoglobin 10.9 g/dL (12.0-16.0); Mean Corpuscular HGB CONC 29.3 g/dL (32.0-36.0); Mean Corpuscular Hemoglobin 26.3 pg (27.0-31.0); Mean Corpuscular Volume 89.9 fl (78.0-98.0); Mean Platelet Volume 9.8 fL (7.4-10.4); Platelet Count 271 10x3/uL (130-400); RBC Distribution Width 14.6 % (11.5-14.5); Red Blood Cell (RBC) Count 4.14 mill/uL (4.20-5.40); White Blood Cell (WBC) Count 6.7 10x3/uL (4.8-10.8)
[2022-10-15 09:15] VITALS: BP 113/75; TEMP 98.1
[2022-10-15] MEDS: Sulfameth/Trimethoprim DS 800-160mg TAB PO SCH (09:39)
[2022-10-15] MEDS: Sertraline 100 MG TAB PO SCH (09:40)
[2022-10-15] MEDS: ALPRAZolam 0.5 MG TAB PO SCH (09:40)
[2022-10-15] MEDS: Nystatin Cream 15 GM TUBE TOP SCH (09:40)
[2022-10-15] MEDS: Acetaminophen 325 MG TAB PO PRN (12:58)
== END 2022-10-15 14:05 | disposition home or self-care (01) | DRG 871 ==
LOC: ERS → ERHOLD 10-11 03:39 → CCU 10-11 07:55 → T4-A 10-13 02:02
PROVIDERS: ADMIT Student in an Organized Health Care Education/Training Program; ATTEND Internal Medicine Critical Care Medicine
PROC: 4A043R1 Measurement of Venous Saturation, Peripheral, Percutaneous Approach (ICD-10-PCS; principal; 2022-10-11)
PROC: 3E03329 Introduction of Other Anti-infective into Peripheral Vein, Percutaneous Approach (ICD-10-PCS; 2022-10-11)
PROC: 3E033XZ Introduction of Vasopressor into Peripheral Vein, Percutaneous Approach (ICD-10-PCS; 2022-10-11)
DX: A41.9 Sepsis, unspecified organism (principal); R65.21 Severe sepsis with septic shock; L03.116 Cellulitis of left lower limb; J96.11 Chronic respiratory failure with hypoxia; N10 Acute pyelonephritis; R82.81 Pyuria; J44.9 Chronic obstructive pulmonary disease, unspecified; D64.9 Anemia, unspecified; D69.6 Thrombocytopenia, unspecified; I10 Essential (primary) hypertension; Z87.891 Personal history of nicotine dependence; Z79.899 Other long term (current) drug therapy; Z88.5 Allergy status to narcotic agent; E78.5 Hyperlipidemia, unspecified; Z20.822 Contact with and (suspected) exposure to COVID-19; Z99.81 Dependence on supplemental oxygen
CPT/HCPCS: 36415; 71045; 74178; 80048; 80053; 80202; 81001; 82550; 82728; 82805; 83540; 83550; 83605; 83690; 84484; 85025; 86140; 87040; 87086; 93005; 94640; 94664; 96361; 96365; 96366; 96375; 97139; J0692; J2405; J3370; J3370-JW; J3490; J7050; J7611; J7620; Q9967; U0002

== ENCOUNTER 2022-10-26 13:06 | Outpatient (CLI) | payer MEDICARE ==
[2022-10-26 15:37] LABS: Bilirubin Neg (Negative); Blood, Urine 250 (Negative); Clarity Cloudy (Clear); Glucose, Urine (Dipstick) Normal (Negative); Ketone, Urine Negative (Negative); Leukocyte 100 (Negative); Nitrite Negative (Negative); Protein, Urine (Dipstick) 100 mg/dl (Neg-Trace); Specific Gravity, Urine 1.025 (1.005-1.030)
[2022-10-26 15:42] LABS: Hematocrit 42.2 % (34.9-44.5); Mean Corpuscular HGB CONC 28.4 g/dL (32.0-36.0); Mean Corpuscular Hemoglobin 26.3 pg (27.0-33.0); Mean Corpuscular Volume 92.5 fl (81.6-98.3); Platelet Count 473 10x3/uL (150-450); RBC Distribution Width 14.6 % (11.5-14.5); Red Blood Cell (RBC) Count 4.56 10x6/uL (3.90-5.03)
[2022-10-26 15:59] LABS: RBC/HPF 21-50 HPF (0-3); WBC/HPF Greater than 50 HPF (0-3)
[2022-10-26 16:01] LABS: Anion Gap 18 mmol/L (10-20); BUN (Urea Nitrogen) 24 mg/dL (9.8-20.1); Calc. Creatinine Clearance 0 mL/min (70-130); Calcium 9.1 mg/dL (7.8-10.44); Carbon Dioxide 24 mmol/L (23-31); Chloride 103 mmol/L (98-107); Estimated GFR 66; Glucose 73 mg/dL (80-115); Potassium 5.4 mmol/L (3.5-5.1); Sodium 140 mmol/L (136-145)
[2022-10-26 16:02] LABS: Bacteria/HPF 2+ HPF (None Seen); Squamous Epithelial 0-3 HPF (0-3); Transitional Epithelial 0-3 HPF (None Seen); Yeast-Budding 2+ HPF (None Seen); Yeast-Hyphae 2+ HPF (None Seen)
[2022-10-26 16:03] LABS: White Blood Cell Cast 0-3 LPF (None Seen)
[2022-10-26 16:18] LABS: PTT 26.3 sec (22.0-33.0); Prothrombin Time 10.6 sec (9.5-12.1)
== END 2022-10-26 13:07 | disposition home or self-care (01) ==
LOC: LABBT 13:06
PROVIDERS: ATTEND Urology
DX: Z01.818 Encounter for other preprocedural examination (principal); N20.2 Calculus of kidney with calculus of ureter
CPT/HCPCS: 71046; 80048; 81001; 85027; 85610; 85730; 87086; 93005; 93010

== ENCOUNTER 2022-11-04 06:29 | Day surgery (SDC) | payer MEDICARE ==
[2022-10-26 13:52] VITALS: BMI 32.3
[2022-11-04] MEDS ORDERED: Fentanyl 250 MCG/5 ML VIAL ONE (06:46)
[2022-11-04] MEDS ORDERED: Iopamidol 0 ML ONE (07:05)
[2022-11-04] MEDS ORDERED: Bupivacaine 0.25% HCL 30 ML VIAL ONE (07:05)
[2022-11-04] MEDS ORDERED: EPINEPHrine 1 MG/ML AMP ONE (07:05)
[2022-11-04] MEDS ORDERED: Iopamidol 30 ML ONE (07:57)
== END 2022-11-04 07:57 | disposition home or self-care (01) ==
LOC: SDC 06:29
PROVIDERS: ATTEND Urology
DX: N20.2 Calculus of kidney with calculus of ureter (principal); Z53.9 Procedure and treatment not carried out, unspecified reason
CPT/HCPCS: J0171; J3010; Q9967; S0020

== ENCOUNTER 2022-12-02 07:26 | Day surgery (SDC) | payer MEDICARE ==
[2022-11-22 14:21] VITALS: BMI 31.1
[2022-12-02] MEDS ORDERED: LevoFLOXacin 500 mg/D5W 100 ML BAG ONE (08:50)
[2022-12-02] MEDS ORDERED: Midazolam HCl 2 mg/2 ml Vial ONE (09:31)
[2022-12-02] MEDS ORDERED: SUGAMMADEX SODIUM 200 MG/2 ML VIAL ONE (09:35)
[2022-12-02] MEDS ORDERED: Albuterol HFA (OR) 200 PUFF INH ONE ×2 (09:35→10:10)
[2022-12-02] MEDS ORDERED: Dexmedetomidine 200 MCG/2 ML VIAL ONE (09:35)
[2022-12-02] MEDS ORDERED: fentaNYL PF 100 MCG/2 ML SYRINGE ONE (09:35)
[2022-12-02] MEDS ORDERED: Bupivacaine 0.25% HCL 30 ML VIAL ONE (09:45)
[2022-12-02] MEDS ORDERED: EPINEPHrine 1 MG/ML AMP ONE (09:45)
[2022-12-02] MEDS ORDERED: Iopamidol 45 ML ONE (09:45)
[2022-12-02] MEDS ORDERED: Bacitracin Zinc Ointment 30 gm TUBE ONE (09:45)
[2022-12-02] MEDS ORDERED: Glycopyrrolate 0.2 MG/ML 5 ML SYRINGE ONE (10:10)
[2022-12-02] MEDS ORDERED: Rocuronium Bromide 10 MG/ML (10ML VIAL) ONE (10:10)
[2022-12-02] MEDS ORDERED: Dexamethasone 20 MG/5 ML VIAL ONE (10:10)
[2022-12-02] MEDS ORDERED: NEOSTIGMINE 3 MG/3 ML SYR 3 MG/3 ML SYRINGE ONE (10:10)
[2022-12-02] MEDS ORDERED: Lidocaine 1% PF 5 ML VIAL ONE (10:10)
[2022-12-02] MEDS ORDERED: PROPOFOL 200 MG/20 ML VIAL ONE (10:10)
[2022-12-02] MEDS ORDERED: Ondansetron PF 4 MG/2 ML Vial ONE (10:10)
[2022-12-02] MEDS ORDERED: PHENYLEPHRINE-NS 100 MCG/ML 10 ML SYRINGE ONE (10:10)
[2022-12-02] MEDS ORDERED: CEFAZOLIN 2 GM VIAL ONE (10:23)
[2022-12-02] MEDS ORDERED: Sodium Chloride 0.9% 100 ML ONE (10:23)
== END 2022-12-02 15:05 | disposition home or self-care (01) ==
LOC: SDC 07:26
PROVIDERS: ATTEND Urology
PROC: 0TC13ZZ Extirpation of Matter from Left Kidney, Percutaneous Approach (ICD-10-PCS; principal; 2022-12-02)
DX: N20.0 Calculus of kidney (principal); K21.9 Gastro-esophageal reflux disease without esophagitis; I10 Essential (primary) hypertension; I25.10 Atherosclerotic heart disease of native coronary artery without angina pectoris; Z88.5 Allergy status to narcotic agent
CPT/HCPCS: 50081; 82365; 86850; 86900; 86901; A4314; C1769; C2617 ×2; 88300; J0171; J1100; J1956; J2250; J2405; J2704; J3490; Q9967; S0020